=== PATIENT | female | born 1975 | race African-American/Black ===

== ENCOUNTER 2022-12-05 17:27 | Emergency (ER) | payer OTHER, SELFPAY ==
--- NOTE | ~2022-12-05 | XR_ITS ---
EXAMINATION: XR chest 2V DATE: 12/05/2022 18:04 INDICATION: Heart palpitations TECHNIQUE: PA and lateral views of the chest are obtained. COMPARISON: None available FINDINGS: The lungs are free of acute opacities. No pleural effusion or pneumothorax. The cardiomedia stinal silhouette is normal. There is moderate thoracic spondylosis. IMPRESSION: 1. No acute cardiopulmonary abnormality. Reviewed, dictated and finalized at location F. PS CONSULTANT
--- NOTE | 2022-12-05 17:45 | ECG_ITS ---
Measurements Intervals [place] Rate: 104 P: 43 VT: 168 QRS: -30 QRSD: 94 T: -6 QT: 320 QTc: 422 Interpretive Statements SINUS TACHYCARDIA CANNOT RULE OUT SEPTAL INFARCT, AGE INDETERMINATE BORDERLINE T WAVE ABNORMALITY- ANTEROLAT/INF LEADS ABNORMAL ECG NO PREVIOUS ECG AVAILABLE FOR COMPARISON Electronically Signed On 12-05-2022 18:48:19 [employer]ECUTIVE by Noah Lindo D.O.
[2022-12-05 17:46] VITALS: BP 173/85; PULSE 104; RESP 20; TEMP 36.6; O2SAT 98
[2022-12-05 18:11] LABS: Basophils Absolute Auto 0.1 K/mm3 (0.0-0.1); Eosinophils Absolute Auto 0.2 K/mm3 (0-0.3); Eosinophils Percent Auto 2.6 % (0-4.4); Hematocrit 38.2 % (37.0-47.0); Hemoglobin 12.9 g/dL (12.0-15.0); Immature Granulocyte Absolute 0.02 K/mm3 (0.00-0.031); Immature Granulocyte Percent A 0.3 % (0-0.5); Lymphocytes Absolute Auto 2.26 K/mm3 (0.9-3.2); Lymphocytes Percent Auto 36.3 % (18.3-44.2); Mean Corpuscular HGB Conc 33.8 g/dl (32-36); Mean Corpuscular Hemoglobin 29.4 pg (26-34); Mean Platelet Volume 11.1 fl (7.4-10.4); Monocytes Absolute Auto 0.5 K/mm3 (0.1-0.6); Monocytes Percent Auto 8.5 % (2.6-8.5); Neutrophils Absolute Auto 3.2 K/mm3 (1.3-6.7); Neutrophils Percent Auto 51.3 % (45.5-73.1); Platelet Count Result 254 k/mm3 (150-375); Red Blood Count 4.39 M/mm3 (4.2-5.4); Red Cell Distribution Width 14.6 % (11.5-14.5); White Blood Count 6.2 K/mm3 (4.5-10.0)
[2022-12-05 18:20] LABS: Alanine Aminotransferase 11 U/L (6-35); Albumin Level 4.2 g/dL (3.5-5.1); Alkaline Phosphatase 57 U/L (38-126); Anion Gap 6 mmol/L (8-16); Aspartate Amino Transferase 17 U/L (14-36); Bilirubin,Total 0.5 mg/dL (0.2-1.3); Blood Urea Nitrogen 9 mg/dL (7-17); Carbon Dioxide 28 mmol/L (22-30); Chloride 103 mmol/L (98-107); Estimated CRCL calculation 78 ml/min; Estimated Glomerular Filt Rate > 60; Glucose 103 mg/dL (65-110); Lipase 38 U/L (23-300); Potassium 3.6 mmol/L (3.4-5.0); Sodium 137 mmol/L (137-145)
[2022-12-05 18:21] LABS: INR 1.1; Prothrombin Time 13.7 Seconds (11.1-14.7)
[2022-12-05 18:23] LABS: Partial Thromboplastin Time 27.8 SECONDS (22.3-36.8)
[2022-12-05 18:32] LABS: Troponin I < 0.012 ng/mL (0.000-0.034)
[2022-12-05 21:47] VITALS: BP 148/72; PULSE 98; RESP 18; O2SAT 100
--- NOTE | 2022-12-05 21:58 | PC.NURSE ---
patient states she has been waiting too long and left from triage area
== END 2022-12-05 22:21 | disposition left against medical advice (07) ==
PROVIDERS: Emergency Provider Emergency Medicine
DX: R07.9 Chest pain, unspecified (principal)
CPT/HCPCS: 36415; 71046; 80053; 83690; 84484; 85025; 85610; 85730; 93005; 99199

== ENCOUNTER 2023-03-09 20:15 | Emergency (ER) | payer OTHER, SELFPAY ==
[2023-03-09 20:17] VITALS: BP 154/101; PULSE 107; RESP 16; TEMP 36.6; O2SAT 100
--- NOTE | 2023-03-09 21:28 | ECG_ITS ---
Measurements Intervals [place] Rate: 93 P: 12 IN: 167 QRS: -29 QRSD: 99 T: -29 QT: 383 QTc: 477 Interpretive Statements SINUS RHYTHM BORDERLINE LEFT AXIS DEVIATION [QRS AXIS < -20] MINIMAL VOLTAGE CRITERIA FOR LVH, CONSIDER NORMAL VARIANT [MEETS CRITERIA IN ONE OF: R(aVL), S(V1), R(V5), R(V5/V6)+S(V1)] MODERATE T-WAVE ABNORMALITY COMPARED TO ECG 12/05/2022 17:42:38 SINUS RHYTHM NOW PRESENT Electronically Signed On 03-10-2023 12:15:49 CDT by Marques Jarquin M.D.
--- NOTE | 2023-03-09 21:29 | ED.GENADULT ---
HPI - General Adult General Chief complaint: Recheck/Abnormal Lab/Rx Stated complaint: htn, unable to sleep Time Seen by Provider: 03/09/23 20:50 Source: patient Mode of arrival: ambulatory Limitations: no limitations History of Present Illness HPI narrative: This is a 47-year-old female who presents to the ED with chief complaint of anxiety and elevated blood pressures. Patient states that she has been unable to sleep for the past 2 weeks due to her stress. She has been seen by a doctor at [place] and and they have been working on sleep medications for the past few weeks. She states that nothing is working. Patient reports feeling shaky and she was lightheaded earlier. Endorses bilateral upper extremity tingling. Also endorses waves of hotness that is all over my body. Denies any LOC. Denies head injury. Denies any current chest pain or shortness of breath. Review of Systems Review of Systems: CONSTITUTIONAL: Denies fever, chills, or sweats. EYES: Denies visual changes, redness, or discharge. ENT: Denies rhinorrhea, congestion, sore throat, or otalgia. CARDIOVASCULAR: Denies chest pain, palpitations, or edema. RESPIRATORY: Denies cough or dyspnea. GASTROINTESTINAL: Denies abdominal pain, nausea, vomiting, or diarrhea. GENITOURINARY: Denies dysuria or hematuria. SKIN: Denies rash or itching. MUSCULOSKELETAL: Denies back pain, joint pain, or myalgia. NEUROLOGIC: See HPI PSYCHIATRIC: See HPI Exam Narrative: GENERAL: Appears anxious. Otherwise well-appearing. HEAD: Normocephalic, atraumatic. EYES: PERRLA and EOMI. ENT: Nares clear, no rhinorrhea or epistaxis. Mucous membranes moist. Oropharynx without tonsillar hypertrophy exudate or other lesions. NECK: Supple. No adenopathy or masses. CHEST: No respiratory distress. Clear to auscultation. No wheezes rales or rhonchi HEART: Regular rate and rhythm. No murmur heard. Normal peripheral pulses. ABDOMEN: Soft, nontender, nondistended, normal active bowel sounds. MSK: Normal range of motion. No edema. SKIN: Warm, dry, no rash. NEURO: Alert and oriented x3. No focal deficits. PSYCH: Anxious mood. Conversational. Appropriate affect. No SI or HI. Course Vital Signs Vital signs: Vital Signs Temperature 97.9 F 03/09/23 20:17 Pulse Rate 107 H 03/09/23 20:17 Respiratory Rate 16 03/09/23 20:17 Blood Pressure 154/101 H 03/09/23 20:17 Pulse Oximetry 100 03/09/23 20:17 Oxygen Delivery Room Air 03/09/23 20:17 Temperature 98.1 F 03/10/23 00:38 Pulse Rate 83 03/10/23 00:38 Respiratory Rate 12 03/10/23 00:38 Blood Pressure 130/86 03/10/23 00:38 Pulse Oximetry 100 03/10/23 00:38 Oxygen Delivery Room Air 03/09/23 20:17 Medical Decision Making MDM Narrative Medical decision making narrative: This is a 47-year-old female who presents to the ED with chief complaint of anxiety and unable to sleep for the past few weeks. Vitals are stable. Exam is reassuring. Blood work and EKG are within normal limits. Symptoms are certainly consistent with increased anxiety. She was given 1 mg total of Ativan here which seemed to help with her symptoms and she was able to get some sleep. She is stable for discharge. Supportive measures discussed and return precautions were given. Patient is understanding and agreeable with plan for discharge and follow-up with her regular doctor for anxiety. Vital Signs Vital Signs: Vital Signs Temperature 97.9 F 03/09/23 20:17 Pulse Rate 107 H 03/09/23 20:17 Respiratory Rate 16 03/09/23 20:17 Blood Pressure 154/101 H 03/09/23 20:17 Pulse Oximetry 100 03/09/23 20:17 Oxygen Delivery Room Air 03/09/23 20:17 Temperature 98.1 F 03/10/23 00:38 Pulse Rate 83 03/10/23 00:38 Respiratory Rate 12 03/10/23 00:38 Blood Pressure 130/86 03/10/23 00:38 Pulse Oximetry 100 03/10/23 00:38 Oxygen Delivery Room Air 03/09/23 20:17 Lab Data 03/09/23 21:43
[2023-03-09 22:01] LABS: Basophils Absolute Auto 0.1 K/mm3 (0.0-0.1); Basophils Percent Auto 0.5 % (0.2-1.2); Eosinophils Absolute Auto 0.1 K/mm3 (0-0.3); Eosinophils Percent Auto 1.2 % (0-4.4); Hematocrit 37.3 % (37.0-47.0); Hemoglobin 12.7 g/dL (12.0-15.0); Immature Granulocyte Absolute 0.03 K/mm3 (0.00-0.031); Immature Granulocyte Percent A 0.3 % (0-0.5); Lymphocytes Absolute Auto 2.73 K/mm3 (0.9-3.2); Lymphocytes Percent Auto 27.3 % (18.3-44.2); Mean Platelet Volume 11.2 fl (7.4-10.4); Monocytes Absolute Auto 0.8 K/mm3 (0.1-0.6); Monocytes Percent Auto 8.3 % (2.6-8.5); Neutrophils Absolute Auto 6.2 K/mm3 (1.3-6.7); Neutrophils Percent Auto 62.4 % (45.5-73.1); Platelet Count Result 242 k/mm3 (150-375); Red Blood Count 4.24 M/mm3 (4.2-5.4); Red Cell Distribution Width 15.5 % (11.5-14.5)
[2023-03-09 22:14] LABS: Alanine Aminotransferase 16 U/L (6-35); Albumin Level 3.9 g/dL (3.5-5.1); Alkaline Phosphatase 44 U/L (38-126); Anion Gap 6 mmol/L (8-16); Aspartate Amino Transferase 20 U/L (14-36); Bilirubin,Total 0.4 mg/dL (0.2-1.3); Blood Urea Nitrogen 11 mg/dL (7-17); Calcium 8.9 mg/dL (8.4-10.2); Carbon Dioxide 31 mmol/L (22-30); Chloride 100 mmol/L (98-107); Estimated CRCL calculation 81 ml/min; Estimated Glomerular Filt Rate > 60; Glucose 105 mg/dL (65-110); Potassium 3.3 mmol/L (3.4-5.0); Sodium 137 mmol/L (137-145)
[2023-03-09] MEDS: SODIUM CHLORIDE 0.9% IV 1,000 ML 999 ML IV CONT (22:41)
[2023-03-09] MEDS: LORazepam INJ (*CRX) 2 MG/ML VIAL 0.5 MG IV PUSH ×2 (22:43→23:42)
[2023-03-09 23:23] VITALS: PULSE 90; RESP 17; O2SAT 100
[2023-03-10 00:38] VITALS: BP 130/86; PULSE 83; RESP 12; TEMP 36.7; O2SAT 100
== END 2023-03-10 00:39 | disposition home or self-care (01) ==
PROVIDERS: Emergency Provider Physician Assistant; PCP Internal Medicine Infectious Disease
DX: F41.9 Anxiety disorder, unspecified (principal)
CPT/HCPCS: 36415; 80053; 85025; 93005; 96361; 96374; 96375; 99284; J2060; J7030

== ENCOUNTER 2023-03-11 11:51 | Emergency (ER) | payer OTHER, SELFPAY ==
[2023-03-11] VITALS (24 sets, daily range): BP systolic 135–181; BP diastolic 85–111; PULSE 81–105; RESP 11–20; TEMP 36.6; O2SAT 99–100
--- NOTE | 2023-03-11 12:15 | ECG_ITS ---
Measurements Intervals [place] Rate: 102 P: 38 MD: 151 QRS: -46 QRSD: 98 T: -26 QT: 343 QTc: 447 Interpretive Statements SINUS TACHYCARDIA LEFT ANTERIOR FASCICULAR BLOCK [QRS AXIS <= -45, QR IN I, RS IN II] CANNOT EXCLUDE PREVIOUS ANTEROSEPTAL DE COMPARED TO ECG 03/09/2023 23:27:32 SINUS TACHYCARDIA NOW PRESENT NO SIGNIFICANT CHANGE Electronically Signed On 03-11-2023 16:27:18 CDT by Sage Moses M.D.
[2023-03-11 12:30] LABS: Basophils Absolute Auto 0.1 K/mm3 (0.0-0.1); Basophils Percent Auto 0.9 % (0.2-1.2); Eosinophils Absolute Auto 0.1 K/mm3 (0-0.3); Eosinophils Percent Auto 0.9 % (0-4.4); Hematocrit 36.9 % (37.0-47.0); Hemoglobin 12.3 g/dL (12.0-15.0); Immature Granulocyte Absolute 0.01 K/mm3 (0.00-0.031); Immature Granulocyte Percent A 0.1 % (0-0.5); Lymphocytes Absolute Auto 1.59 K/mm3 (0.9-3.2); Lymphocytes Percent Auto 22.9 % (18.3-44.2); Mean Corpuscular HGB Conc 33.3 g/dl (32-36); Mean Corpuscular Hemoglobin 29.9 pg (26-34); Mean Corpuscular Volume 89.8 fl (80-100); Mean Platelet Volume 10.5 fl (7.4-10.4); Monocytes Absolute Auto 0.5 K/mm3 (0.1-0.6); Monocytes Percent Auto 7.1 % (2.6-8.5); Neutrophils Absolute Auto 4.7 K/mm3 (1.3-6.7); Neutrophils Percent Auto 68.1 % (45.5-73.1); Platelet Count Result 224 k/mm3 (150-375); Red Blood Count 4.11 M/mm3 (4.2-5.4); Red Cell Distribution Width 15.9 % (11.5-14.5); White Blood Count 6.9 K/mm3 (4.5-10.0)
[2023-03-11 12:40] LABS: Alanine Aminotransferase 16 U/L (6-35); Albumin Level 3.7 g/dL (3.5-5.1); Alkaline Phosphatase 47 U/L (38-126); Anion Gap 5 mmol/L (8-16); Aspartate Amino Transferase 21 U/L (14-36); Bilirubin,Total 0.4 mg/dL (0.2-1.3); Blood Urea Nitrogen 8 mg/dL (7-17); Calcium 8.5 mg/dL (8.4-10.2); Carbon Dioxide 29 mmol/L (22-30); Chloride 100 mmol/L (98-107); Estimated CRCL calculation 110 ml/min; Estimated Glomerular Filt Rate > 60; Glucose 129 mg/dL (65-110); Potassium 3.3 mmol/L (3.4-5.0); Sodium 134 mmol/L (137-145)
--- NOTE | 2023-03-11 12:59 | ED.GENADULT ---
HPI - General Adult General Chief complaint: Headache Stated complaint: hypertension, STEPHEN, tingling all over, hx anxiety Time Seen by Provider: 03/11/23 12:31 History of Present Illness HPI narrative: Patient is a 47-year-old female who presents ER with multiple complaints. She reports throbbing frontal headache ongoing for couple of days, she is also having elevated blood pressures that are causing her distress. She is currently residing at [facility] where they are managing her mental health medications. She reports insomnia for the last 2 weeks. She was seen here couple days ago for the same complaints and got some sleep after receiving some Ativan. She reports increased stress due to her poor dentition and requiring future removal of all of her teeth. She reports her legs also feel heavy. No lower extremity numbness or tingling. No upper extremity numbness or tingling. Patient tearful. Related Data Allergies Allergy/AdvReac Type Severity Reaction Status Date / Time No Known Allergies Allergy Verified 03/11/23 11:51 Review of Systems Review of Systems: All systems reviewed & are unremarkable except as noted in HPI and below Constitutional: Constitutional: Denies chills, Denies fatigue and Denies fever(s) Comments: Positive insomnia Eyes: Eyes: Denies change in vision and Denies photophobia ENT: Denies nasal congestion and Denies sore throat Cardiovascular: Cardiovascular: Denies chest pain, Denies rapid heart rate and Denies radiating jaw, neck or arm pain Musculoskeletal: Musculoskeletal: Denies back pain, Denies myalgias and Denies arthralgias Neurologic: Denies dizziness, Denies syncope, Reports headache(s) and Denies focal weakness Psychiatric: Psychiatric: Reports anxiety PMFSH Past Medical History Medical History (Updated 03/11/23 @ 14:58 by Nino Johnson MD) Anxiety Depression Hypertension Surgical History Surgical History (Updated 03/11/23 @ 13:02 by Nino Johnson MD) No pertinent past surgical history Exam Narrative: GENERAL: Anxious-appearing, well-nourished, and in no acute distress. HEAD: Normocephalic, atraumatic. EYES: PERRL and EOMI. ENT: Poor dentition with large root exposure of multiple teeth. No abscess. CHEST: Clear to auscultation. No respiratory distress. HEART: Regular rate and rhythm. Normal peripheral pulses. EXTREMITIES: Normal range of motion. No edema. SKIN: Warm, dry, no rash. NEURO: Alert and oriented x3. PSYCH: Anxious and tearful. Course Course Emergency Course: Patient seems improved after Ativan, offered Ativan for her stay chest not and she has declined. Lab work unremarkable. Symptoms felt to be related to her anxiety. Vital Signs Vital signs: Vital Signs Temperature 97.8 F 03/11/23 12:12 Pulse Rate 105 H 03/11/23 12:12 Respiratory Rate 18 03/11/23 12:12 Blood Pressure 178/100 H 03/11/23 12:12 Pulse Oximetry 100 03/11/23 12:12 Oxygen Delivery Room Air 03/11/23 12:12 Temperature 97.8 F 03/11/23 12:12 Pulse Rate 96 03/11/23 14:02 Respiratory Rate 17 03/11/23 14:01 Blood Pressure 163/100 H 03/11/23 14:02 Pulse Oximetry 100 03/11/23 14:01 Oxygen Delivery Room Air 03/11/23 12:12 Medical Decision Making Vital Signs Vital Signs: Vital Signs Temperature 97.8 F 03/11/23 12:12 Pulse Rate 105 H 03/11/23 12:12 Respiratory Rate 18 03/11/23 12:12 Blood Pressure 178/100 H 03/11/23 12:12 Pulse Oximetry 100 03/11/23 12:12 Oxygen Delivery Room Air 03/11/23 12:12 Temperature 97.8 F 03/11/23 12:12 Pulse Rate 96 03/11/23 14:02 Respiratory Rate 17 03/11/23 14:01 Blood Pressure 163/100 H 03/11/23 14:02 Pulse Oximetry 100 03/11/23 14:01 Oxygen Delivery Room Air 03/11/23 12:12 Lab Data 03/11/23 12:23 03/11/23 12:23 Labs: Lab Results 03/11/23 Range/Units 12:23 WBC 6.9 (4.5-10.0) K/mm3 RBC 4.11 L (
[2023-03-11] MEDS: ACETAMINOPHEN 325 MG TABLET 650 MG PO (13:08)
[2023-03-11] MEDS: LORazepam INJ (*CRX) 2 MG/ML VIAL 0.5 MG IV PUSH (13:09)
== END 2023-03-11 15:00 | disposition home or self-care (01) ==
PROVIDERS: Emergency Medicine; Emergency Provider Emergency Medicine; PCP Internal Medicine Infectious Disease
DX: R51.9 Headache, unspecified (principal); F41.9 Anxiety disorder, unspecified; I10 Essential (primary) hypertension; F32.A Depression, unspecified
CPT/HCPCS: 36415; 80053; 85025; 93005; 96374; 99284; A9270; J2060

== ENCOUNTER 2025-01-18 15:02 | Emergency (ER) | payer OTHER, SELFPAY ==
[2025-01-18] VITALS (24 sets, daily range): BP systolic 156–180; BP diastolic 82–108; PULSE 74–91; RESP 13–21; TEMP 36.1–36.8; O2SAT 98–100
--- NOTE | ~2025-01-18 | XR_ITS ---
CHEST RADIOGRAPH, PA AND LATERAL CLINICAL HISTORY: chest pain . COMPARISON: 12/05/2022 TECHNIQUE: PA and lateral views of the chest. FINDINGS The cardiomediastinal silhouette is unremarkable. The lungs are clear. Visualized osseous structures and soft tissues are unremarkable. IMPRESSION: No focal infiltrate or effusion. Reviewed, dictated and finalized at location A.
--- NOTE | 2025-01-18 15:04 | ECG_ITS ---
Test Date: 2025-01-18 15:15:36 Measurements Intervals [place] Rate: 71 P: 54 RI: 161 QRS: -17 QRSD: 97 T: -13 QT: 370 QTc: 405 Interpretive Statements SINUS RHYTHM MINIMAL Q WAVES- HIGH LATERAL LEADS CANNOT R/O SEPTAL INFARCT, AGE INDETERMINATE BORDERLINE ST-T WAVE ABNORMALITY- ANTEROLAT/INF LEADS BASELINE ARTIFACT- I, III, AVR, AVL, AVF ABNORMAL ECG No previous ECG available for comparison Electronically Signed On 01-18-2025 15:21:37 CDT by Noah Lindo D.O.
--- OUTSIDE RECORDS SUMMARY | 2025-01-18 16:50 | XMS_ITS | Data Portability ---
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 She should call her psychiatrist today even though she has an appointment tomorrow about her insomnia. oajao Not available 03/19/2023 16:45:00 Plan of Treatment Reminders Order Date Submit Date Provider Last Modified By Organization Details Last Modified Time Details Appointments ANY 15 2024 08:45A Angelica Fernandes MD Not available Not available Not available Lab lipid panel, serum 2024 025 jnicolrn [facility], [address], [place], [address], 01/13/2025 12:56:31 vitamin B12, serum 2024 025 MYKE [facility], [address], [place], [address], 01/13/2025 03:03:20 HbA1c (hemoglob in A1c), blood 2024 025 jnicolrn [facility], [address] [place], [place] [address], [address], [place], [address], 01/13/2025 12:56:31 lipid panel, serum 2023 024 MYKE LIN, [address], [address], [place], [address], 07/01/2024 08:31:28 vitamin B12, serum 2023 024 MYKENEO [facility], [address], [address], [place], [address], 07/01/2024 08:31:23 HbA1c (hemoglob in A1c), blood 2023 024 MYKE DALYERP, [address], [address], [place], [address], 07/01/2024 08:31:22 vitamin D, 25-hydrox y, total, serum 2023 024 MYKE DALEYRP, [address], [address], [place], [address], 07/01/2024 08:31:24 vitamin B12, serum 2022 023 MYKE LIN, [address], [address], [place], [address], 05/02/2023 10:15:26 HbA1c (hemoglob in A1c), blood 2022 023 MYKE LABLAINERP, [address], [address], [place], [address], 05/02/2023 10:15:25 urinalysi s, dipstick 2022 023 MYKE DALEYRP, [address], [address], [place], [address], 05/02/2023 06:39:57 basic metabolic 1998 panel, serum or plasma 2022 023 [facility], [address] [place] [address], [address], [place], [address], 05/02/2023 06:39:56 vitamin B12, serum 2022 023 [facility], [address] [place] [address], [address], [place], [address], 03/20/2023 13:10:58 TSH, ultra-sen sitive, serum 2022 023 [facility], [address] [place] [address], [address], [place], [address], 03/20/2023 13:10:57 basic metabolic 1998 panel, serum or plasma 2022 023 [facility], [address] [place] [address], [address], [place], [address], 03/20/2023 06:17:06 Referral gastroent erologist referral 2023 024 himanshu Guerrero MD, [address] [place], [address], 07/29/2024 12:24:10 Procedures None recorded. Surgeries None recorded. Imaging MAMMO, screening , digital, bilateral 2023 024 [facility] ([facility]), [address] [place], [address], 08/03/2024 13:29:53 XR, knee - Pain, lateral and posterior part of the right knee 2022 023 [facility] ([facility]), [address] [place], [address], 05/23/2023 17:42:28 MRI, brain, w/o contrast - Severe headache, parasthes ia, negative CT scan 2022 023 [facility] ([facility]), [address] [place], [address], 03/22/2023 13:17:02 Medication Orders atorvasta tin 40 mg tablet 2024 025 [id number], [address] [place], [place], [id number], 12/30/2024 13:14:40 Vitamin D2 1,250 mcg (50,000 unit) capsule 2024 025 [facility] #[id number], [address] [place], [place], [id number], 12/30/2024 13:18:09 amlodipin e 5 mg tablet 2024 025 [facility] #[id number], [address] [place], [place], [id number], 12/30/2024 13:14:38 metoprolo l succinate ER 25 mg tablet,ex tended release 24 hr 2024 025 [facility] #[id number], [address] [place], [place], [id number], 12/30/2024 13:14:32 atorvasta tin 40 mg tablet 2023 024 [facility] #[facility]30, [address] [place], [place], [id number], 06/30/2024 13:04:00 pantopraz ole 40 mg tablet,de layed release 2023 024 [facility] #[id number], [address] [place], [place], [id number], 06/30/2024 13:04:55 amlodipin e 5 mg tablet 2023 024 [facility] #05974, [address] [place], [place], [id number], 06/30/2024 12:56:29 cyanocoba norman (vit B-12) 1,000 mcg/mL injection solution 2022 023 [email or web address] Not available 06/30/2024 12:35:48 amlodipin e 10 mg tablet 2022 023 [facility]205, [address] [place], [place], [id number], 06/30/2024 12:46:58 hydrochlo rothiazid e 25 mg tablet 2022 023 [facility] #67085, [address] [place], [place], [id number], 05/01/2023 13:03:46 Patient TargetsNo targets recorded. Patient Instructions Encounter Date Encounter Id Patient Instructions Last Modified By Organization Details Last Modified Time 03/19/2023 [id number] MRI brain Labs Psychiatrist GODFREY ER if her symptoms worsen. oajao Not available 03/19/2023 15:10:40 Detailed visit oajao Not available 0 03/19/2023 16:47:11 05/01/2023 [id number] prediabetes: car e instructions oajao Not available 05/01/2023 13:07:31 Labs Xray MMG as previously ordered Discharge summary from her recent admission to [facility] Follow up in 2 weeks oajao Not available 05/01/2023 13:15:24 Detailed visit oajao Not available 0 05/01/2023 14:05:42 06/30/2024 [id number] mammogram: about this test oajao Not available 06/30/2024 12:57:49 high cholesterol : care instructions oajao Not available 06/30/2024 13:03:49 gastroesophageal reflux disease (GERD): care instructions oajao Not available 06/30/2024 13:04:49 Labs MMG Cardiol ogy GI Follow up in 6 months and PRN oajao Not available 06/30/2024 13:06:58 12/30/2024 [id number] body mass index: care instructions oajao Not available 12/30/2024 13:00:11 learning about healthy weight oajao Not available 12/30/2024 13:00:11 Restart Atorvast atin Take Amlodipine and Metoprolol as prescribed Labs in 2 weeks Follow up in 3-4 weeks oajao Not available 12/30/2024 13:18:38 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 Referral for Gastroesophageal reflux disease Chronic abdominal bloating Referring Physician: Mohsen Fernandes, Internal Medicine, Encounter Date: 06/30/2024 Results Created Date Observation Date Name Description Value Unit Range Abnormal Flag Note LastModifiedBy Organization Detail LastModifiedTime 03/03/2003/03/2023 Vickie ol [Mass /volu me] in Serum or Plasm a ethanol [mass/volume ] in serum or plasma high: 10mg/d L Vickie ol (mg/d L) <10 <10 mg/dL 03/03 9:48 AM CDT [facility] Not Available Not Available 12/30/2024 03:23:02 03/03/2003/03/2023 Vickie ol [Mass /volu me] in Serum or Plasm a ethanol [mass/volume ] in blood high: 0.01g/ dL Vickie ol Calcu lated (g/dL ) <0.01 0 <=0.0 10 g/dL 03/03 9:48 AM CDT [facility] Not Available Not Available 12/30/2024 03:23:02 03/03/2003/03/2023 Vickie ol [Mass /volu me] in Serum or Plasm a Unknown Analyte ETHANO L INTERP <10: NONE DETECT ED. DEPRES SHAMIKA OF GUIDE DOG TRAINER: >100 MG/DL POTENT IALLY CRITIC AL: >250 MG/DL POTENT IALLY FATAL >400 MG/DL ETHANO L IN THE PATIEN T'S BLOOD WILL CONTRI BUTE TO THE OSMOLA R GAP. ETHANO L'S CONTRI BUTION TO THE OSMOLA R GAP CAN BE ESTIMA JENNIFER BY DIVIDI NG THE CONCEN TRATIO N OF ETHANO L IN MG/DL BY 4.6. THIS TEST IS FOR CLINIC AL USE ONLY AND DOES NOT EQUAL A BRIDGER FOR LEGAL PURPOS ES. Vickie ol Inter p <10: None Detec jennifer. Depre ssion of GUIDE DOG TRAINER: >100 mg/dl Poten tiall y Criti olya: >250 mg/dl Poten tiall y Fatal >400 mg/dl Vickie ol in the patie nt's blood will contr ibute to the osmol ar gap. Vickie ol's contr ibuti on to the osmol ar gap can be estim ated by divid ing the laurie ntrat ion of vickie ol in mg/dL by 4.6. This test is for clini olya use only and does not equal a BRIDGER for legal purpo ses. Not Available Not Available 12/30/2024 03:23:02 03/03/2003/03/2023 Vickie ol [Mass /volu me] in Serum or Plasm a interpretati on and review of laboratory results NORMAL Not Available Not Available 12/06 03:23:02 03/03/2003/03/2023 CBC W Auto Diffe renti al panel - Blood leukocytes [#/volume] in blood by automated count 8.3 text: 3.5 - 10.5 10 3/uL WBC 8.3 3.5 - 10.5 10 3/uL 03/03 8:[address] [facility] Not Available Not Available 12/30/2024 03:23:02 03/03/2003/03/2023 CBC W Auto Diffe renti al panel - Blood erythrocytes [#/volume] in blood by automated count 4.46 text: 3.80 - 5.20 10 6/uL RBC 4.46 3.80 - 5.20 10 6/uL 03/03 8:[address] [facility] Not Available Not Available 12/30/2024 03:23:02 03/03/2003/03/2023 CBC W Auto Diffe renti al panel - Blood hemoglobin [mass/volume ] in blood 13.2 g/dL low: 12g/dL high: 15.6g/ dL Hemog lobin 13.2 12.0 - 15.6 g/dL 03/03 8:10 AM [facility] Not Available Not Available 12/30/2024 03:23:02 03/03/2003/03/2023 CBC W Auto Diffe renti al panel - Blood hematocrit [volume fraction] of blood by automated count 38.1 % low: 35%hig h: 45% Hemat ocrit 38.1 35.0 - 45.0 % 03/03 8:10 AM [facility] Not [facility] Not Available 12/30/2024 03:23:02 03/03/2003/03/2023 CBC W Auto Diffe renti al panel - Blood MCV [entitic volume] by automated count 85.4 fL low: 80.7fL high: 98.3fL MCV 85.4 80.7 - 98.3 fL 03/03 8:10 AM [facility] Not Available Not Available 12/30/2024 03:23:02 03/03/2003/03/2023 CBC W Auto Diffe renti al panel - Blood MCH [entitic mass] by automated count 29.6 pg low: 26.7pg high: 34pg MCH 29.6 26.7 - 34.0 pg 03/03 8:10 AM T [facility] Not Available Not Available 12/30/2024 03:23:02 03/03/2003/03/2023 CBC W Auto Diffe renti al panel - Blood MCHC [mass/volume ] by automated count 34.6 g/dL low: 30.8g/ dLhigh : 35.9g/ dL MCHC 34.6 30.8 - 35.9 g/dL 03/03 8:10 AM [facility] Not Available Not Available 12/30/2024 03:23:02 03/03/2003/03/2023 CBC W Auto Diffe renti al panel - Blood erythrocyte distribution width [entitic volume] by automated count 46.9 fL low: 36fLhi gh: 50fL RDW-S D 46.9 36.0 - 50.0 fL 03/03 8:[address] [facility] Not Available Not Available 12/30/2024 03:23:02 03/03/2003/03/2023 CBC W Auto Diffe renti al panel - Blood erythrocyte distribution width [ratio] by automated count 15.1 % low: 11.2%h igh: 14.8% high RDW-C V 15.1 (H) 11.2 - 14.8 % 03/03 8:[address] [facility] Not Available Not Available 12/30/2024 03:23:02 03/03/2003/03/2023 CBC W Auto Diffe renti al panel - Blood platelets [#/volume] in blood by automated count 259 text: 150 - 400 10 3/uL Plate let Count 259 150 - 400 10 3/uL 03/03 8:10 AM CDT [facility] Not Available Not Available 12/30/2024 03:23:02 03/03/2003/03/2023 CBC W Auto Diffe renti al panel - Blood platelet mean volume [entitic volume] in blood by automated count 10.5 fL low: 9.4fLh igh: 12.9fL MPV 10.5 9.4 - 12.9 fL 03/03 8:10 AM CDT [facility] Not Available Not Available 12/30/2024 03:23:02 03/03/2003/03/2023 CBC W Auto Diffe renti al panel - Blood nucleated erythrocytes [#/volume] in blood by automated count 0 text: 0 10 3/uL nRBC [place] 0.00 0 10 3/uL 03/03 8:[address] [facility] Not Available Not Available 12/30/2024 03:23:02 03/03/2003/03/2023 CBC W Auto Diffe renti al panel - Blood nucleated erythrocytes /100 leukocytes [ratio] in blood by automated count 0 text: 0 /100 WBC nRBC Auto 0.0 0 /100 WBC 03/03 8:[address] [facility] Not Available Not Available 12/30/2024 03:23:02 03/03/20 23 03/03/2023 CBC W Auto Diffe renti al panel - Blood neutrophils/ 100 leukocytes in blood by automated count 61.1 % low: 35%hig h: 70% Neutr ophil s % 61.1 35.0 - 70.0 % 03/03 8:[address] [facility] Not Available Not Available 12/30/2024 03:23:02 03/03/20 23 03/03/2023 CBC W Auto Diffe renti al panel - Blood lymphocytes/ 100 leukocytes in blood by automated count 28.2 % low: 20%hig h: 43% Lymph ocyte s % 28.2 20.0 - 43.0 % 03/03 8:[address] [facility] Not Available Not Available 12/30/2024 03:23:02 03/03/20 23 03/03/2023 CBC W Auto Diffe renti al panel - Blood monocytes/10 0 leukocytes in blood by automated count 7.7 % low: 5%high : 13% Monoc ytes % 7.7 5.0 - 13.0 % 03/03 8:[address] [facility] Not Available Not Available 12/30/2024 03:23:02 03/03/20 23 03/03/2023 CBC W Auto Diffe renti al panel - Blood eosinophils/ 100 leukocytes in blood by automated count 1.6 % low: 0%high : 6% Eosin ophil s % 1.6 0.0 - 6.0 % 03/03 8:[address] [facility] Not Available Not Available 12/30/2024 03:23:02 03/03/20 23 03/03/2023 CBC W Auto Diffe renti al panel - Blood basophils/10 0 leukocytes in blood by automated count 1 % low: 0%high : 2% Basop hil % 1.0 0.0 - 2.0 % 03/03 8:[address] [facility] Not Available Not Available 12/30/2024 03:23:02 03/03/20 23 03/03/2023 CBC W Auto Diffe renti al panel - Blood neutrophils [#/volume] in blood by automated count 5.09 text: 1.60 - 7.00 10 3/uL Neutr ophil s [place]ol [place] 5.09 1.60 - 7.00 10 3/uL 03/03 8:[address] [facility] Not Available Not Available 12/30/2024 03:23:02 03/03/20 23 03/03/2023 CBC W Auto Diffe renti al panel - Blood lymphocytes [#/volume] in blood by automated count 2.35 text: 1.10 - 3.90 10 3/uL Lymph ocyte [place]ol [place] 2.35 1.10 - 3.90 10 3/uL 03/03 8:[address] [facility] Not Available Not Available 12/30/2024 03:23:02 03/03/20 23 03/03/2023 CBC W Auto Diffe renti al panel - Blood monocytes [#/volume] in blood by automated count 0.64 text: 0.26 - 1.07 10 3/uL Monoc ytes [place]ol [place] 0.64 0.26 - 1.07 10 3/uL 03/03 8:[address] [facility] Not Available Not Available 12/30/2024 03:23:02 03/03/20 23 03/03/2023 CBC W Auto Diffe renti al panel - Blood eosinophils [#/volume] in blood by automated count 0.13 text: 0.00 - 0.47 10 3/uL Eosin ophil s [place] 0.13 0.00 - 0.47 10 3/uL 03/03 8:[address] [facility] Not Available Not Available 12/30/2024 03:23:02 03/03/2003/03/2023 CBC W Auto Diffe renti al panel - Blood basophils [#/volume] in blood by automated count 0.08 text: 0.00 - 0.08 10 3/uL Basop hils [place] 0.08 0.00 - 0.08 10 3/uL 03/03 8:10 AM CDT [facility] Not Available Not Available 12/30/2024 03:23:02 03/03/20 23 03/03/2023 CBC W Auto Diffe renti al panel - Blood immature granulocytes /100 leukocytes in blood by automated count 0.4 % low: 0%high : 1% Immat ure Granu locyt es % 0.4 0.0 - 1.0 % 03/03 8:10 AM CDT [facility] Not Available Not Available 12/30/2024 03:23:02 03/03/20 23 03/03/2023 CBC W Auto Diffe renti al panel - Blood immature granulocytes absolute 0.03 Immat ure Granu locyt es [place] 0.03 03/03 8:10 AM CDT [facility] Not Available Not Available 12/30/2024 03:23:02 03/03/20 23 03/03/2023 CBC W Auto Diffe renti al panel - Blood interpretati on and review of laboratory results ABNORM AL Not Available Not Available 03:23:02 03/03/20 23 03/03/2023 Compr ehens nadeem metab olic 1999 panel - Serum or Plasm a urea nitrogen [mass/volume ] in serum or plasma 9 mg/dL low: 7mg/dL high: 26mg/d L BUN 9 7 - 26 mg/dL 03/03 8:59 AM [facility] Not Available Not Available 12/30/2024 03:21:25 03/03/20 23 03/03/2023 Compr ehens nadeem metab olic 1999 panel - Serum or Plasm a creatinine [mass/volume ] in serum or plasma 0.78 mg/dL low: 0.56mg /dLhig h: 0.96mg /dL Creat inine 0.78 0.56 - 0.96 mg/dL 03/03 8:59 AM T [facility] Not Available Not Available 12/30/2024 03:21:25 03/03/20 23 03/03/2023 Compr ehens nadeem metab olic 1999 panel - Serum or Plasm a sodium [moles/volum e] in serum or plasma 138 mmol/ L low: 136mmo l/Lhig h: 145mmo l/L Sodiu m 138 136 - 145 mmol/ L 03/03 8:[address] [facility] Not Available Not Available 12/30/2024 03:21:25 03/03/20 23 03/03/2023 Compr ehens nadeem metab olic 1999 panel - Serum or Plasm a potassium [moles/volum e] in serum or plasma 3.5 mmol/ L low: 3.5mmo l/Lhig h: 4.5mmo l/L Potas sium 3.5 3.5 - 4.5 mmol/ L 03/03 8:[address] [facility] Not Available Not Available 12/30/2024 03:21:25 03/03/20 23 03/03/2023 Compr ehens nadeem metab olic 1999 panel - Serum or Plasm a chloride [moles/volum e] in serum or plasma 102 mmol/ L low: 98mmol /Lhigh : 107mmo l/L Chlor yolande 102 98 - 107 mmol/ L 03/03 8:[address] [facility] Not Available Not Available 12/30/2024 03:21:25 03/03/20 23 03/03/2023 Compr ehens nadeem metab olic 1999 panel - Serum or Plasm a carbon dioxide, total [moles/volum e] in serum or plasma 26 mmol/ L low: 22mmol /Lhigh : 29mmol /L CO2 26 22 - 29 mmol/ L 03/03 8:[address] [facility] Not Available Not Available 12/30/2024 03:21:25 03/03/20 23 03/03/2023 Compr ehens nadeem metab olic 1999 panel - Serum or Plasm a glucose [mass/volume ] in serum or plasma 108 mg/dL low: 70mg/d Lhigh: 115mg/ dL Gluco se 108 70 - 115 mg/dL 03/03 8:[address] [facility] Not Available Not Available 12/30/2024 03:21:25 03/03/20 23 03/03/2023 Compr ehens nadeem metab olic 1999 panel - Serum or Plasm a calcium [moles/volum e] in serum or plasma 9.7 mg/dL low: 8.4mg/ dLhigh : 10.2mg /dL Calci um 9.7 8.4 - 10.2 mg/dL 03/03 8:[address] [facility] Not Available Not Available 12/30/2024 03:21:25 03/03/20 23 03/03/2023 [facility] nadeem metab [facility] 1999 panel - Serum or Plasm a protein [mass/volume ] in serum or plasma 6.7 g/dL low: 6g/dLh igh: 8.3g/d L Prote in Total 6.7 6.0 - 8.3 g/dL 03/03 8:[address] [facility] Not Available Not Available 12/30/2024 03:21:25 03/03/20 23 03/03/2023 [facility] nadeem [facility] 1999 panel - Serum or Plasm a albumin [mass/volume ] in serum or plasma by bromocresol green (bcg) dye binding method 3.8 g/dL low: 3.4g/d Lhigh: 5g/dL Album in 3.8 3.4 - 5.0 g/dL 03/03 8:[address] [facility] Not Available Not Available 12/30/2024 03:21:25 03/03/20 23 03/03/2023 [facility] nadeem [facility] 1999 panel - Serum or Plasm a bilirubin.to capri [mass/volume ] in serum or plasma 0.3 mg/dL low: 0.2mg/ dLhigh : 1.2mg/ dL Bilir ubin Total 0.3 0.2 - 1.2 mg/dL 03/03 8:[address] [facility] Not Available Not Available 12/30/2024 03:21:25 03/03/20 23 03/03/[address] [facility] nadeem metab olic 2000 panel - Serum or Plasm a alkaline phosphatase [enzymatic activity/vol ume] in serum or plasma 50 U/L low: 40U/Lh igh: 150U/L Alkal ine Phosp hatas e 50 40 - 150 U/L 03/03 8:[address] [facility] Not Available Not Available 12/30/2024 03:21:25 03/03/20 23 03/03/2023 Compr ehens nadeem metab olic 1999 panel - Serum or Plasm a alanine aminotransfe rase [enzymatic activity/vol ume] in serum or plasma by no addition of P-5'-P 7 U/L low: 5U/Lhi gh: 55U/L ALT 7 5 - 55 U/L 03/03 8:[address] [facility] Not Available Not Available 12/30/2024 03:21:25 03/03/20 23 03/03/2023 Compr ehens nadeem metab olic 1999 panel - Serum or Plasm a aspartate aminotransfe rase [enzymatic activity/vol ume] in serum or plasma 12 U/L low: 5U/Lhi gh: 34U/L AST 12 5 - 34 U/L 03/03 8:[address] [facility] Not Available Not Available 12/30/2024 03:21:25 03/03/20 23 03/03/2023 Compr ehens nadeem metab olic 1999 panel - Serum or Plasm a anion gap 14 low: 8high: 18 Anion Gap 14 8 - 18 03/03 8:[address] [facility] Not Available Not Available 12/30/2024 03:21:25 03/03/20 23 03/03/2023 Compr ehens nadeem metab olic 1999 panel - Serum or Plasm a urea nitrogen/cre atinine [mass ratio] in serum or plasma 12 low: 7high: 23 BUN/C reati nine Ratio 12 7 - 23 03/03 8:[address] [facility] Not Available Not Available 12/30/2024 03:21:25 03/03/20 23 03/03/2023 Compr ehens nadeem metab olic 1999 panel - Serum or Plasm a osmolality calculated 285 text: 270 - 300 mOsm/k g Osmol ality Calcu lated 285 270 - 300 mOsm/ kg 03/03 8:59 AM CDT [facility] Not Available Not Available 12/30/2024 03:21:25 03/03/20 23 03/03/2023 Compr ehens nadeem metab olic 2000 panel - Serum or Plasm a albumin/glob ulin ratio 1.3 low: 1.1hig h: 2.3 Album in/Gl obuli n Ratio 1.3 1.1 - 2.3 03/03 8:59 AM CDT [facility] Not Available Not Available 12/30/2024 03:21:25 03/03/20 23 03/03/2023 Compr ehens nadeem metab olic 2000 panel - Serum or Plasm a glomerular filtration rate/1.73 sq M.predicted [volume rate/area] in serum, plasma or blood by creatinine-b ased formula (CKD-epi) text: >=90 mL/min /1.73 m2 eGFR by CKD-E PI >90 >=90 mL/mi n/1.7 3 m2 03/03 8:59 AM T [facility] Not Available Not Available 12/30/2024 03:21:25 03/03/20 23 03/03/2023 Compr ehens nadeem metab olic 2000 panel - Serum or Plasm a interpretati on and review of laboratory results NORMAL Not Available Not Available 12/06 03:21:25 03/19/20 23 03/19/2023 BASIC METAB OLIC PANEL (7) glucose 103 mg/dL 65-99 above high normal Not Available [facility] [address] [place], [address], 03/20/2023 06:17:06 03/19/20 23 03/19/2023 BASIC METAB OLIC PANEL (7) BUN 8 mg/dL 8-26 Not Available [facility] [address] [place], [address], 03/20/2023 06:17:06 03/19/20 23 03/19/2023 BASIC METAB OLIC PANEL (7) creatinine 0.61 mg/dL 0.50-1 .40 Not Available [facility] [address] [place], [address], 03/20/2023 06:17:06 03/19/20 23 03/19/2023 BASIC METAB OLIC PANEL (7) eGFR 110 mL/mi n/1.7 3 >=60 Not Available [facility] [address] [place], [address], 03/20/2023 06:17:06 03/19/20 23 03/19/2023 BASIC METAB OLIC PANEL (7) BUN/creatini ne ratio 13.3 Not Available [facility] [address] [place], [address], 03/20/2023 06:17:06 03/19/20 23 03/19/2023 BASIC METAB OLIC PANEL (7) sodium 138.0 mmol/ L 136.0- 144.0 Not Available [facility] [address] [place], [address], 03/20/2023 06:17:06 03/19/20 23 03/19/2023 BASIC METAB OLIC PANEL (7) potassium 4.0 mmol/ L 3.5-5. 3 Not Available [facility] [address] [place], [address], 03/20/2023 06:17:06 03/19/20 23 03/19/2023 BASIC METAB OLIC PANEL (7) chloride 99 mmol/ l 101-11 1 below low normal Not Available [facility] [address] [place], [address], 03/20/2023 06:17:06 03/19/20 23 03/19/2023 BASIC METAB OLIC PANEL (7) carbon dioxide, total 23.0 mmol/ L 21.0-3 2.0 Not Available [facility] [address] [place] [address], [id number], 03/20/2023 06:17:06 03/19/20 23 03/20/2023 TSH RFX ON ABNOR MAL TO FREE T4 TSH 0.910 uIU/m L 0.450- 4.500 Not Available [facility] ([facility]) [address] [facility], [place], [address], 03/20/2023 13:10:57 03/19/20 23 03/20/2023 VITAM IN B12 vitamin B12 195 pg/mL 232-12 45 below low normal Not Available [facility] ([facility]) [address] [facility], [place], [address], 03/20/2023 13:10:58 05/01/20 23 05/01/2023 BASIC METAB OLIC PANEL (7) glucose 86 mg/dL 65-99 Not Available [facility] [address] [place] [address], [address], 05/02/2023 06:39:55 05/01/20 23 05/01/2023 BASIC METAB OLIC PANEL (7) BUN 11 mg/dL 8-26 Not Available [facility] [address] [place] [address], [address], 05/02/2023 06:39:55 05/01/20 23 05/01/2023 BASIC METAB OLIC PANEL (7) creatinine 0.74 mg/dL 0.50-1 .40 Not Available [facility] [address] [place], [address], 05/02/2023 06:39:55 05/01/20 23 05/01/2023 BASIC METAB OLIC PANEL (7) eGFR 99 mL/mi n/1.7 3 >=60 Not Available [facility] [address] [place], [address], 05/02/2023 06:39:55 05/01/20 23 05/01/2023 BASIC METAB OLIC PANEL (7) BUN/creatini ne ratio 15.0 Not Available [facility] [address] [place] [address], [address], 05/02/2023 06:39:55 05/01/20 23 05/01/2023 BASIC METAB OLIC PANEL (7) sodium 139.0 mmol/ L 136.0- 144.0 Not Available [facility] [address] [place], [address], 05/02/2023 06:39:55 05/01/20 23 05/01/2023 BASIC METAB OLIC PANEL (7) potassium 4.1 mmol/ L 3.5-5. 3 Not Available [facility] [address] [place], [address], 05/02/2023 06:39:55 05/01/20 23 05/01/2023 BASIC METAB OLIC PANEL (7) chloride 105 mmol/ L 101-11 1 Not Available [facility] [address] [place], [address], 05/02/2023 06:39:55 05/01/20 23 05/01/2023 BASIC METAB OLIC PANEL (7) carbon dioxide, total 24.9 mmol/ L 21.0-3 2.0 Not Available [facility] [address] [place], [address], 05/02/2023 06:39:55 05/01/20 23 05/02/2023 HEMOG LOBIN A1C hemoglobin A1C 5.5 % 4.8-5. 6 Predi abete s: 5.7 - 6.4 Diabe chadd: >6.4 Glyce marin contr ol for adult s with diabe chadd: <7.0 Not Available [facility] ([facility]) [address] [facility], [place], [address], 05/02/2023 10:15:25 05/01/20 23 05/02/2023 VITAM IN B12 vitamin B12 177 pg/mL 232-12 45 below low normal Not Available [facility] ([facility]) [address] [facility], [place], [address], 05/02/2023 10:15:26 05/01/20 23 05/01/2023 URINA LYSIS , ROUTI NE specific gravity 1.025 1.001- 1.035 Not Available [facility] [address] [place], [address], 05/02/2023 06:39:57 05/01/20 23 05/01/2023 URINA LYSIS , ROUTI NE pH 6.0 5.0-7. 0 Not Available [facility] [address] [place], [address], 05/02/2023 06:39:57 05/01/20 23 05/01/2023 URINA LYSIS , ROUTI NE urine-color YELLOW yellow Not Available [facility] [address] [place], [address], 05/02/2023 06:39:57 05/01/20 23 05/01/2023 URINA LYSIS , ROUTI NE appearance CLEAR Not Available [facility] [address] [place], [address], 05/02/2023 06:39:57 05/01/20 23 05/01/2023 URINA LYSIS , ROUTI NE WBC esterase Commen t NEGAT NADEEM Not Available [facility] [address] [place], [address], 05/02/2023 06:39:57 05/01/20 23 05/01/2023 URINA LYSIS , ROUTI NE protein Commen t NEGAT NADEEM Not Available [facility] [address] [place], [address], 05/02/2023 06:39:57 05/01/20 23 05/01/2023 URINA LYSIS , ROUTI NE glucose Commen t NEGAT NADEEM Not Available [facility] [address] [place], [address], 05/02/2023 06:39:57 05/01/20 23 05/01/2023 URINA LYSIS , ROUTI NE ketones Commen t NEGAT NADEEM Not Available [facility] [address] [place], [address], 05/02/2023 06:39:57 05/01/20 23 05/01/2023 URINA LYSIS , ROUTI NE occult blood See below: yusef/u L negati ve abnormal MODER ATE Not Available [facility] [address] [place], [address], 05/02/2023 06:39:57 05/01/20 23 05/01/2023 URINA LYSIS , ROUTI NE bilirubin Commen t negati ve NEGAT NADEEM Not Available [facility] [address] [place], [address], 05/02/2023 06:39:57 05/01/20 23 05/01/2023 URINA LYSIS , ROUTI NE urobilinogen ,semi-qn 0.2 eu/dL <=1.0 Not Available [facility] [address] [facility], [place], [address], 05/02/2023 06:39:57 05/01/20 23 05/01/2023 URINA LYSIS , ROUTI NE nitrite, urine Commen t negati ve NEGAT NADEEM Not Available [facility] [address] [place], [address], 05/02/2023 06:39:57 05/01/20 23 05/01/2023 MICRO SCOPI C EXAMI NATIO N WBC 0-2 Not Available [facility] [address] [place], [address], 05/02/2023 06:39:56 05/01/20 23 05/01/2023 MICRO SCOPI C EXAMI NATIO N RBC 0-2 Not Available [facility] [address] [place], [address], 05/02/2023 06:39:56 05/01/20 23 05/01/2023 MICRO SCOPI C EXAMI NATIO N epithelial cells (non renal) 1+ Not Available [facility] [address] [place], [address], 05/02/2023 06:39:56 05/01/20 23 05/01/2023 MICRO SCOPI C EXAMI NATIO N mucus threads TRACE Not Available [facility] [address] [place], [address], 05/02/2023 06:39:56 05/01/20 23 05/01/2023 MICRO SCOPI C EXAMI NATIO N bacteria Commen t NONE SEEN Not Available [facility] [address] [place], [address], 05/02/2023 06:39:56 06/30/20 24 07/01/2024 HEMOG LOBIN A1C hemoglobin A1C 6.0 % 4.8-5. 6 above high normal Predi abete s: 5.7 - 6.4 Diabe chadd: >6.4 Glyce marin contr ol for adult s with diabe chadd: <7.0 Not Available [facility] ([facility]) [address] [place], [address], 07/01/2024 08:31:22 06/30/20 24 07/01/2024 VITAM IN B12 vitamin B12 216 pg/mL 232-12 45 below low normal Not Available [facility] ([facility]) [address] [place], [address], 07/01/2024 08:31:23 06/30/20 24 07/01/2024 VITAM IN D, 25-HY DROXY vitamin D, 25-hydroxy 17.2 NG/mL 30.0-1 00.0 below low normal Vitam in D defic iency has been defin ed by the Insti tute of Medic ine and an Endoc rine Socie ty pract ice guide line as a level of serum 25-OH vitam in D less than 20 ng/mL (1,2) . The Endoc rine Socie ty went on to furth er defin e vitam in D insuf ficie ncy as a level betwe en 21 and 29 ng/mL (2). 1. IOM (Inst itute of Medic ine). 2010. Dieta ry refer ence intak es for calci um and D. Michael barr [place]: The [facility] . 2. Sanjeev owens MF, Trang roach [place], Navin off-F laura i STEPHEN, et al. Evalu ation , treat ment, and preve ntion of vitam in D defic iency : an Endoc rine Socie ty clini olya pract ice guide line. JCEM. 2010; 96(7) :1911 -30. Not Available [facility] ([facility]) [address] [place], [address], 07/01/2024 08:31:24 06/30/2007/01/2024 LIPID PANEL cholesterol, total 132 mg/dL 100-19 9 Not Available [facility] ([facility]) [address] [place], [address], 07/01/2024 08:31:28 06/30/20 24 07/01/2024 LIPID PANEL triglyceride s 41 mg/dL 0-149 Not Available [facility] ([facility]) [address] [place], [address], 07/01/2024 08:31:28 06/30/20 24 07/01/2024 LIPID PANEL HDL cholesterol 49 mg/dL >39 Not Available [facility] ([facility]) [address] [place], [address], 07/01/2024 08:31:28 06/30/2007/01/2024 LIPID PANEL VLDL cholesterol olya 10 mg/dL 5-40 Not Available [facility] ([facility]) [address] [place], [address], 07/01/2024 08:31:06/30/20 24 07/01/2024 LIPID PANEL LDL chol calc ([facility]) 73 mg/dL 0-99 Not Available [facility] ([facility]) [address] [facility], [place], [address], 07/01/2024 08:31:28 01/03/20 25 01/02/2025 Tropo navid I.car diac [Mass /volu me] in Serum or Plasm a by Detec tion limit <= 0.01 ng/mL troponin I.cardiac [mass/volume ] in serum or plasma by detection limit <= 0.01 NG/mL <0.012 low: 0NG/mL high: 0.034N G/mL normal Not Available Not Available 01/03/2025 11:15:29 01/03/20 25 01/02/2025 Tropo navid I.car diac [Mass /volu me] in Serum or Plasm a by Detec tion limit <= 0.01 ng/mL troponin I.cardiac [mass/volume ] in serum or plasma by detection limit <= 0.01 NG/mL <0.012 low: 0NG/mL high: 0.034N G/mL normal Not Available Not Available 01/03/2025 11:15:29 01/03/20 25 01/02/2025 Tropo navid I.car diac [Mass /volu me] in Serum or Plasm a by Detec tion limit <= 0.01 ng/mL troponin I.cardiac [mass/volume ] in serum or plasma by detection limit <= 0.01 NG/mL <0.012 low: 0NG/mL high: 0.034N G/mL normal Not Available Not Available 01/03/2025 11:15:29 01/03/20 25 01/02/2025 Magne sium [Mass /volu me] in Serum or Plasm a magnesium [mass/volume ] in serum or plasma 1.9 mg/dL low: 1.6mg/ dLhigh : 2.3mg/ dL normal Not Available Not Available 01/03/2025 11:15:29 01/03/20 25 01/02/2025 Compr ehens nadeem metab olic 2000 panel - Serum or Plasm a sodium [moles/volum e] in blood 138 mmol/ L low: 137mmo l/Lhig h: 145mmo l/L normal Not Available Not Available 01/03/2025 11:15:29 01/03/20 25 01/02/2025 Compr [facility] nadeem metab olic 1999 panel - Serum or Plasm a potassium [moles/volum e] in serum or plasma 3.4 mmol/ L low: 3.5mmo l/Lhig h: 5.1mmo l/L low Not Available Not Available 01/03/2025 11:15:29 01/03/20 25 01/02/2025 Compr ehens nadeem metab olic 1999 panel - Serum or Plasm a chloride [moles/volum e] in serum or plasma 108 mmol/ L low: 98mmol /Lhigh : 107mmo l/L high Not Available Not Available 01/03/2025 11:15:29 01/03/20 25 01/02/2025 Compr ehens nadeem metab olic 1999 panel - Serum or Plasm a carbon dioxide, total [moles/volum e] in serum or plasma 27 mmol/ L low: 22mmol /Lhigh : 30mmol /L normal Not Available Not Available 01/03/2025 11:15:29 01/03/20 25 01/02/2025 Compr [facility] n[facility]em [place] olic 1999 panel - Serum or Plasm a anion gap in serum or plasma by calculation 6.4 mmol/ L low: 14mmol /Lhigh : 22mmol /L low Not Available Not Available 01/03/2025 11:15:29 01/03/20 25 01/02/2025 Compr [facility] nadeem metab olic 1999 panel - Serum or Plasm a glucose [mass/volume ] in serum or plasma 117 mg/dL low: 70mg/d Lhigh: 99mg/d L high Not Available Not Available 01/03/2025 11:15:29 01/03/20 25 01/02/2025 Compr [facility] nadeem [place] [facility] 1999 panel - Serum or Plasm a urea nitrogen [mass or moles/volume ] in serum or plasma 10 mg/dL low: 8mg/dL high: 19mg/d L normal Not Available Not Available 01/03/2025 11:15:29 01/03/20 25 01/02/2025 Compr [employer] nadeem metab olic 2000 panel - Serum or Plasm a creatinine [mass/volume ] in serum or plasma 0.78 mg/dL low: 0.66mg /dLhig h: 1.25mg /dL normal Not Available Not Available 01/03/2025 11:15:29 01/03/20 25 01/02/2025 [facility] 1999 panel - Serum or Plasm a glomerular filtration rate [volume rate/area] in serum, plasma or blood by based on 1.73 sq M >60 normal Not Available Not Available 11:15:29 01/03/20 25 01/02/2025 [facility] 1999 panel - Serum or Plasm a alkaline phosphatase [enzymatic activity/vol ume] in serum or plasma 53 U/L low: 38U/Lh igh: 126U/L normal Not Available Not Available 01/03/2025 11:15:29 01/03/20 25 01/02/2025 [facility] 1999 panel - Serum or Plasm a alanine aminotransfe rase [enzymatic activity/vol ume] in serum or plasma 16 U/L low: 0U/Lhi gh: 35U/L normal Not Available Not Available 01/03/2025 11:15:29 01/03/20 25 01/02/2025 [facility] 1999 panel - Serum or Plasm a aspartate aminotransfe rase [enzymatic activity/vol ume] in serum or plasma 22 U/L low: 15U/Lh igh: 37U/L normal Not Available Not Available 01/03/2025 11:15:29 01/03/20 25 01/02/2025 [facility] 1999 panel - Serum or Plasm a bilirubin.to capri [mass/volume ] in serum or plasma 0.5 mg/dL low: 0.2mg/ dLhigh : 1.3mg/ dL normal Not Available Not Available 01/03/2025 11:15:29 01/03/20 25 01/02/2025 [facility] [place] [address] panel - Serum or Plasm a calcium [mass/volume ] in serum or plasma 9.5 mg/dL low: 8.4mg/ dLhigh : 10.2mg /dL normal Not Available Not Available 01/03/2025 11:15:29 01/03/20 25 01/02/2025 Compr [facility] nadeem metab olic 1999 panel - Serum or Plasm a protein [mass/volume ] in serum or plasma 6.6 g/dL low: 6.3g/d Lhigh: 8.2g/d L normal Not Available Not Available 01/03/2025 11:15:29 01/03/20 25 01/02/2025 Compr ehens nadeem metab olic 1999 panel - Serum or Plasm a albumin [mass/volume ] in serum or plasma 4 g/dL low: 3.4g/d Lhigh: 5g/dL normal Not Available Not Available 01/03/2025 11:15:29 01/03/20 25 01/02/2025 Compr ehens nadeem metab olic 1999 panel - Serum or Plasm a globulin [mass/volume ] in serum 2.6 g/dL low: 2.6g/d Lhigh: 4.2g/d L normal Not Available Not Available 01/03/2025 11:15:29 01/03/20 25 01/02/2025 [facility] 1999 panel - Serum or Plasm a albumin/glob ulin [mass ratio] in serum or plasma 1.5 ratio low: 1ratio high: 2ratio normal Not Available Not Available 01/03/2025 11:15:29 01/03/20 25 01/02/2025 Fibri n D-dim er FEU [Mass /volu me] in Plate let poor plasm a fibrin D-dimer feu [mass/volume ] in platelet poor plasma 0.23 mg/L_ feu low: 0mg/L feuhig h: 0.49mg /L feu normal Not Available Not Available 01/03/2025 11:15:29 01/03/20 25 01/02/2025 CBC W Auto Diffe renti al panel - Blood leukocytes [#/volume] in blood by automated count 6.1 x10'3 /uL low: 4.2x10 '3/uLh igh: 10.8x1 0'3/uL normal Not Available Not Available 01/03/2025 11:15:29 01/03/20 25 01/02/2025 CBC W Auto Diffe renti al panel - Blood erythrocytes [#/volume] in blood by automated count 4.02 x10'6 /uL low: 3.8x10 '6/uLh igh: 5.2x10 '6/uL normal Not Available Not Available 01/03/2025 11:15:29 01/03/20 25 01/02/2025 CBC W Auto Diffe renti al panel - Blood hemoglobin [mass/volume ] in blood 12.5 g/dL low: 12g/dL high: 15.6g/ dL normal Not Available Not Available 01/03/2025 11:15:29 01/03/20 25 01/02/2025 CBC W Auto Diffe renti al panel - Blood hematocrit [volume fraction] of blood by automated count 37.3 % low: 35.7%h igh: 45.7% normal Not Available Not Available 01/03/2025 11:15:29 01/03/20 25 01/02/2025 CBC W Auto Diffe renti al panel - Blood MCV [entitic mean volume] in red blood cells by automated count 92.8 fL low: 82fLhi gh: 99fL normal Not Available Not Available 01/03/2025 11:15:29 01/03/20 25 01/02/2025 CBC W Auto Diffe renti al panel - Blood MCH [entitic mass] by automated count 31.1 pg low: 27pghi gh: 33pg normal Not Available Not Available 01/03/2025 11:15:29 01/03/20 25 01/02/2025 CBC W Auto Diffe renti al panel - Blood MCHC [entitic mass/volume] in red blood cells by automated count 33.5 g/dL low: 31g/dL high: 36g/dL normal Not Available Not Available 01/03/2025 11:15:29 01/03/20 25 01/02/2025 CBC W Auto Diffe renti al panel - Blood erythrocyte [distwidth] in red blood cells 14.2 % low: 11.8%h igh: 15.5% normal Not Available Not Available 01/03/2025 11:15:29 01/03/20 25 01/02/2025 CBC W Auto Diffe renti al panel - Blood platelets [#/volume] in blood by automated count 224 x10'3 /uL low: 150x10 '3/uLh igh: 400x10 '3/uL normal Not Available Not Available 01/03/2025 11:15:29 01/03/20 25 01/02/2025 CBC W Auto Diffe renti al panel - Blood platelet [entitic mean volume] in blood by automated count 10.9 fL low: 9fLhig h: 12.4fL normal Not Available Not Available 01/03/2025 11:15:29 01/03/20 25 01/02/2025 CBC W Auto Diffe renti al panel - Blood neutrophils/ leukocytes in blood 49 % low: 39%hig h: 72% normal Not Available Not Available 01/03/2025 11:15:29 01/03/20 25 01/02/2025 CBC W Auto Diffe renti al panel - Blood lymphocytes/ leukocytes in blood 37.7 % low: 16%hig h: 47% normal Not Available Not Available 01/03/2025 11:15:29 01/03/20 25 01/02/2025 CBC W Auto Diffe renti al panel - Blood monocytes/le ukocytes in blood 9 % low: 5%high : 12% normal Not Available Not Available 01/03/2025 11:15:29 01/03/20 25 01/02/2025 CBC W Auto Diffe renti al panel - Blood eosinophils [#/volume] in blood 3.1 % low: 1%high : 7% normal Not Available Not Available 01/03/2025 11:15:29 01/03/20 25 01/02/2025 CBC W Auto Diffe renti al panel - Blood basophils/le ukocytes in blood 1 % low: 0%high : 2% normal Not Available Not Available 01/03/2025 11:15:29 01/03/20 25 01/02/2025 CBC W Auto Diffe renti al panel - Blood immature granulocytes /leukocytes in blood 0.2 % low: 0%high : 0.5% normal Not Available Not Available 01/03/2025 11:15:29 01/03/20 25 01/02/2025 CBC W Auto Diffe renti al panel - Blood neutrophils [#/volume] in blood 2.99 x10'3 /uL low: 1.5x10 '3/uLh igh: 8x10'3 /uL normal Not Available Not Available 01/03/2025 11:15:29 01/03/20 25 01/02/2025 CBC W Auto Diffe renti al panel - Blood lymphocytes [#/volume] in blood 2.3 x10'3 /uL low: 1.07x1 0'3/uL high: 3.43x1 0'3/uL normal Not Available Not Available 01/03/2025 11:15:29 01/03/20 25 01/02/2025 CBC W Auto Diffe renti al panel - Blood monocytes [#/volume] in blood 0.55 x10'3 /uL low: 0.29x1 0'3/uL high: 0.99x1 0'3/uL normal Not Available Not Available 01/03/2025 11:15:29 01/03/20 25 01/02/2025 CBC W Auto Diffe renti al panel - Blood eosinophils [#/volume] in blood 0.19 x10'3 /uL low: 0.02x1 0'3/uL high: 0.53x1 0'3/uL normal Not Available Not Available 01/03/2025 11:15:29 01/03/20 25 01/02/2025 CBC W Auto Diffe renti al panel - Blood basophils [#/volume] in blood 0.06 x10'3 /uL low: 0.01x1 0'3/uL high: 0.08x1 0'3/uL normal Not Available Not Available 01/03/2025 11:15:29 01/03/20 25 01/02/2025 CBC W Auto Diffe renti al panel - Blood immature granulocytes [#/volume] in blood 0.01 x10'3 /uL low: 0x10'3 /uLhig h: 0.05x1 0'3/uL normal Not Available Not Available 01/03/2025 11:15:29 01/03/20 25 01/02/2025 CBC W Auto Diffe renti al panel - Blood nucleated erythrocytes /leukocytes [ratio] in blood 0 % high: 0% normal Not Available Not Available 01/03/2025 11:15:29 01/03/20 25 01/02/2025 CBC W Auto Diffe renti al panel - Blood nucleated erythrocytes [#/volume] in blood by automated count 0 x10'3 /uL normal Not Available Not Available 01/04/20 11:15:29 01/04/20 25 01/03/2025 [facility] 1999 panel - Serum or Plasm a sodium [moles/volum e] in blood 136 mmol/ L low: 137mmo l/Lhig h: 145mmo l/L low Not Available Not Available 01/03/2025 11:15:29 01/04/20 25 01/03/2025 [facility] 1999 panel - Serum or Plasm a potassium [moles/volum e] in serum or plasma 3.9 mmol/ L low: 3.5mmo l/Lhig h: 5.1mmo l/L normal Not Available Not Available 01/03/2025 11:15:29 01/04/20 25 01/03/2025 [facility] 1999 panel - Serum or Plasm a chloride [moles/volum e] in serum or plasma 108 mmol/ L low: 98mmol /Lhigh : 107mmo l/L high Not Available Not Available 01/03/2025 11:15:29 01/04/20 25 01/03/2025 [facility] 1999 panel - Serum or Plasm a carbon dioxide, total [moles/volum e] in serum or plasma 26 mmol/ L low: 22mmol /Lhigh : 30mmol /L normal Not Available Not Available 01/03/2025 11:15:29 01/04/20 25 01/03/2025 [facility] 1999 panel - Serum or Plasm a anion gap in serum or plasma by calculation 5.9 mmol/ L low: 14mmol /Lhigh : 22mmol /L low Not Available Not Available 01/03/2025 11:15:29 01/04/20 25 01/03/2025 [facility] 1999 panel - Serum or Plasm a glucose [mass/volume ] in serum or plasma 105 mg/dL low: 70mg/d Lhigh: 99mg/d L high Not Available Not Available 01/03/2025 11:15:29 01/04/20 25 01/03/2025 [facility] 1999 panel - Serum or Plasm a urea nitrogen [mass or moles/volume ] in serum or plasma 11 mg/dL low: 8mg/dL high: 19mg/d L normal Not Available Not Available 01/03/2025 11:15:29 01/04/20 25 01/03/2025 Basic metab olic 1999 panel - Serum or Plasm a creatinine [mass/volume ] in serum or plasma 0.91 mg/dL low: 0.66mg /dLhig h: 1.25mg /dL normal Not Available Not Available 01/03/2025 11:15:29 01/04/20 25 01/03/2025 Basic metab olic 1999 panel - Serum or Plasm a glomerular filtration rate [volume rate/area] in serum, plasma or blood by based on 1.73 sq M >60 normal Not Available Not Available 11:15:29 01/04/20 25 01/03/2025 Basic metab olic 1999 panel - Serum or Plasm a calcium [mass/volume ] in serum or plasma 9.1 mg/dL low: 8.4mg/ dLhigh : 10.2mg /dL normal Not Available Not Available 01/03/2025 11:15:29 03/22/20 23 03/22/2023 MRI, brain , w/o contr ast No observ ation record ed. [facility] [address] [place], [address], 04/03/2023 16:06:47 03/30/20 23 03/30/2023 CT, head, w/o contr ast No observ ation record ed. [facility] [address] [place], [address], 03/31/2023 08:15:39 05/06/20 23 03/30/2023 CT, head, w/o contr ast No observ ation record ed. [facility] [address] [place], [address], 05/06/2023 13:41:40 05/06/20 23 03/30/2023 CT, head, w/o contr ast No observ ation record ed. [facility] [address] [place], [address], 05/06/2023 13:42:11 05/23/20 23 05/23/2023 XR, knee No observ ation record ed. [facility] [address] [place], [address], 06/30/2024 12:42:33 05/24/20 23 05/24/2023 MAMMO , scree shashi, bilat eral No observ ation record ed. [facility] [address] [place], [address], 06/30/2024 12:42:33 06/03/20 23 05/31/2023 CT, angio gram, chest , w/ contr ast No observ ation record ed. [facility] [address], [place], [address], 06/30/2024 12:42:32 08/03/20 24 08/03/2024 MAMMO , scree shashi, digit al, bilat eral No observ ation record ed. [facility] [address] [place], [address], 12/30/2024 12:58:24 01/19/20 25 01/18/2025 imagi ng/di agnos tic resul t No observ ation record ed. [facility] [id number], [place], [address], 01/18/2025 16:43:39 Result Notes None recorded. Problems Name Problem SNOMED Code Status Onset Date Resolution Date Notes Provider Name and Address Organization Details Recorded Time Influenza vaccination declined 057287639 Active 2017 Not Available [facility] 4 22:43:00 Mixed anxiety and depressive disorder 577802465 Active 2017 Not Available [facility] 4 22:43:00 Mammography abnormal 136902889 Active 2020 Not Available [facility] 4 22:43:00 SARS-CoV-2 vaccination declined 7408118102 Active 2022 Not Available [facility] 4 22:43:00 Vitamin B12 deficiency (non anemic) 42207541 Active 2022 Not Available [facility] 4 22:43:00 Palpitations 65237482 Active Not Available [facility] 4 22:43:00 Generalized anxiety disorder 44265954 Active Not Available [facility] 4 22:43:00 Depressive disorder 09906728 Active Not Available [facility] 4 22:43:00 Overweight 003672103 Active Not Available [facility] 4 22:43:00 Chest pain 67291044 Active Not Available [facility] 4 22:43:00 Anemia 433258633 Active Not Available [facility] 4 22:43:00 Fatigue 72533657 Active Not Available [facility] 4 22:43:00 Iron deficiency anemia 29388145 Active Not Available [facility] 4 22:43:00 Cardiovascul ar stress test abnormal 004672184 Active Not Available [facility] 4 22:43:00 Disorder of lipid metabolism 004926395 Active Not Available [facility] 4 22:43:00 Benign hypertension 31529137 Active Not Available [facility] 4 22:43:00 Problem Notes None recorded. Procedures Surgical History Date Name Laterality Status Provider Name and Address Organization Details Recorded Time 2023 esophagogastroduodenoscopy completed Kwan Bello MD Attn: Misael solis,[address] [place], [address], [place] 4 09:08:05 2020 Date of Last Pap Smear completed IVY VELAZQUEZ Attn: Misael solis,[address] [place], [address], [place] [facility] 1 10:13:33 2018 colonoscopy completed Mohsen Fenrandes MD Attn: Misael solis,[address] [facility], [place], [address], [place] [facility] 1 11:14:05 2014 Date of Last Mammogram completed Mohsen Fernandes MD Attn: Misael solis,[address], [place], [address], [facility] [facility] 11:17:32 Caesarean Section completed January RUEL Saha PA - [facility] 5 15:52:05 Imaging Results Imaging Date Name Status LastModified by Organiz ation Details LastModified Time 03/22/2023 MRI, brain, w/o contrast completed [facility] [address] [place], [address], 04/03/2023 16:06:47 03/30/2023 CT, head, w/o contrast completed [facility] [address] [place], [address], 03/31/2023 08:15:39 03/30/2023 CT, head, w/o contrast completed [facility] [address] [place], [address], 05/06/2023 13:41:40 03/30/2023 CT, head, w/o contrast completed [facility] [address] [place], [address], 05/06/2023 13:42:11 05/23/2023 XR, knee completed [facility] [address] [place], [address], 06/30/2024 12:42:33 05/24/2023 MAMMO, screening, bilateral completed [facility] [address] [place], [address], 06/30/2024 12:42:33 05/31/2023 CT, angiogram, chest, w/ contrast completed [facility] [address], [place], [address], 06/30/2024 12:42:32 08/03/2024 MAMMO, screening, digital, bilateral completed [facility] [address] [place], [address], 12/30/2024 12:58:24 01/18/2025 imaging/diagno stic result active [facility] [address] [facility] [address], [place], [address], 01/18/2025 16:43:39 Procedure Notes None recorded. Medical Equipment None Reported. Allergies Allergen ID Allergen Name Allergen Category Reaction Reaction Severity Criticality Documentation Date Start Date Code Code System Note Provider Name and Address Organization Details Recorded Time 147637 No known allergy (situatio n) Not available Not available Not available Not available 01/17/2023 [id number] SNOMED Not Available Not Available Not Available No known drug allergies Medications Name Sig Start Date Stop Date Status Note LastModified by Organization Details LastModified Time multivita min tablet TAKE 1 TABLET BY MOUTH EVERY DAY 01/08 completed Not Available Not Available Not Available losartan 50 mg tablet TAKE 1 TABLET BY MOUTH EVERY DAY DIRECTED 01/17 completed Not Available Not Available Not Available fluoxetin e 40 mg capsule TAKE 2 CAPSULES BY MOUTH DAILY 06/30 completed Not Available Not Available Not Available amoxicill in 500 mg capsule TAKE 2 CAPSULES BY MOUTH NOW THEN 1 CAPSULE BY MOUTH THREE TIMES DAILY UNTIL ALL TAKEN 03/19 completed Not Available Not Available Not Available atorvasta tin 40 mg tablet TAKE 1 TABLET BY MOUTH EVERY DAY AT BEDTIME FOR LIPIDS active Not Available Not Available No t Available lamotrigi ne 150 mg tablet TAKE 1 TABLET BY MOUTH TWICE DAILY 03/19 completed Not Available Not Available Not Available clonidine HCl 0.1 mg tablet Take 1 tablet every day by oral route for 7 days. 05/01 completed Not Available Not Available Not Available acetamino phen 325 mg tablet 650 mg by oral route. 12/09 completed Not Available Not Available Not Available venlafaxi ne ER 75 mg capsule,e xtended release 24 hr 10/06 completed Not Available Not Available Not Available lamotrigi ne 200 mg tablet Take 1 tablet by oral route. 05/01 completed Not Available Not Available Not Available venlafaxi ne 75 mg tablet 08/18 completed Not Available Not Available Not Available trazodone 50 mg tablet TAKE 1 TABLET BY MOUTH AT BEDTIME 03/19 completed Not Available Not Available Not Available polyethyl sharita glycol 3350 17 gram oral powder packet MIX AND DRINK 1 PACKET IN 8 OZ OF LIQUID EVERY DAY 06/30 completed Not Available Not Available Not Available ibuprofen 800 mg tablet 10/06 completed Not Available Not Available Not Available hydrocodo ne 5 mg-acetam inophen 325 mg tablet 10/06 completed Not Available Not Available Not Available lorazepam 2 mg/mL injection solution 2 mg by injectio n route. 02/01 completed Not Available Not Available Not Available ondansetr on HCl 4 mg tablet 10/25 completed Not Available Not Available Not Available olanzapin e 5 mg tablet TAKE 1 TABLET BY MOUTH EVERY DAY 06/30 completed Not Available Not Available Not Available venlafaxi ne ER 150 mg capsule,e xtended release 24 hr 03/13 completed Not Available Not Available Not Available cyanocoba norman (vit B-12) 1,000 mcg tablet Take 1 tablet every day by oral route for 90 days. 10/11 completed Not Available Not Available Not Available penicilli n V potassium 500 mg tablet 10/06 completed Not Available Not Available Not Available olanzapin e 10 mg tablet TAKE 1 TABLET BY MOUTH EVERY DAY 06/30 completed Not Available Not Available Not Available amlodipin e 5 mg tablet TAKE 1 TABLET BY MOUTH EVERY DAY DIRECTED FOR HYPERTEN SHAMIKA active Not Available Not Available No t Available olanzapin e 2.5 mg tablet TAKE 1 TABLET BY MOUTH EVERY DAY NEEDED 03/19 completed Not Available Not Available Not Available aspirin 81 mg tablet,de layed release TAKE 1 TABLET BY MOUTH DAILY active Not Available Not Available No t Available lamotrigi ne 25 mg tablet TAKE 1 TABLET BY MOUTH DAILY 03/13 completed Not Available Not Available Not Available magnesium oxide 400 mg (241.3 mg magnesium ) tablet TAKE 1 TABLET BY MOUTH TWICE DAILY 06/30 completed Not Available Not Available Not Available Nitrostat 0.4 mg sublingua l tablet 0.4 mg by sublingu al route. 12/09 completed Not Available Not Available Not Available trazodone 100 mg tablet TAKE 1 TABLET BY MOUTH EVERY NIGHT AT BEDTIME 05/01 completed Not Available Not Available Not Available lithium carbonate 600 mg capsule TAKE 1 CAPSULE BY MOUTH TWICE DAILY 06/30 completed Not Available Not Available Not Available amlodipin e 10 mg tablet TAKE 1 TABLET BY MOUTH DAILY 06/30 completed Not Available Not Available Not Available lithium carbonate 300 mg capsule TAKE 1 CAPSULE BY MOUTH TWICE DAILY 06/30 completed Not Available Not Available Not Available fluvoxami ne 100 mg tablet TAKE 1 TABLET BY MOUTH EVERY EVENING 01/08 completed Not Available Not Available Not Available pantopraz ole 40 mg tablet,de layed release Take 1 tablet every day by oral route as directed for 30 days. active Not Available Not Available No t Available cyanocoba norman (vit B-12) 1,000 mcg/mL injection solution Inject 1 mL every month by subcutan eous route as directed for 30 days. 06/30 completed Not Available Not Available Not Available buspirone 30 mg tablet TK 1 T PO BID 03/13 completed Not Available Not Available Not Available ranitidin e 150 mg tablet 08/18 completed Not Available Not Available Not Available promethaz ine 25 mg tablet 03/19 completed Not Available Not Available Not Available losartan 25 mg tablet Take 1 tablet by oral route. 05/01 completed Not Available Not Available Not Available bupropion HCl 75 mg tablet TAKE 1 TABLET BY MOUTH EVERY MORNING 01/08 completed Not Available Not Available Not Available hydrochlo rothiazid e 12.5 mg capsule 10/25 completed Not Available Not Available Not Available gabapenti n 300 mg capsule TAKE 2 CAPSULES BY MOUTH THREE TIMES DAILY 05/01 completed Not Available Not Available Not Available aspirin 81 mg chewable tablet 81 mg by oral route. 01/10 completed Not Available Not Available Not Available folic acid 1 mg tablet Take 1 tablet every day by oral route for 30 days. 10/06 completed Not Available Not Available Not Available hydroxyzi ne HCl 25 mg tablet TAKE 1 TABLET BY MOUTH EVERY 6 HOURS NEEDED FOR ANXIETY active Not Available Not Available No t Available olanzapin e 15 mg tablet TAKE 1 TABLET BY MOUTH EVERY DAY FOR 12 DAYS 06/30 completed Not Available Not Available Not Available cyanocoba norman (vit B-12) 1,000 mcg sublingua l tablet Place 1 tablet every day by sublingu al route around the clock for 90 days. 06/30 completed OT Not Available Not Available Not Available ranitidin e 150 mg capsule 08/18 completed Not Available Not Available Not Available lisinopri l 5 mg tablet Take 1 tablet every day by oral route for 90 days. 10/06 completed Not Available Not Available Not Available hydrochlo rothiazid e 25 mg tablet Take 0.5 tablets by oral route. 05/01 completed Not Available Not Available Not Available fluvoxami ne 50 mg tablet TAKE 1 TABLET BY MOUTH EVERY EVENING 01/08 completed Not Available Not Available Not Available mirtazapi ne 15 mg tablet 10/06 completed Not Available Not Available Not Available sodium chloride 0.9 % intraveno us solution 1000 mL by intraven . route. 02/01 completed Not Available Not Available Not Available metoprolo l succinate ER 25 mg tablet,ex tended release 24 hr TAKE 1 TABLET BY MOUTH EVERY DAY DIRECTED FOR HYPERTEN SHAMIKA active Not Available Not Available No t Available ergocalci ferol (vitamin D2) 1,250 mcg (50,000 unit) capsule TAKE 1 CAPSULE BY MOUTH ONCE A WEEK active Not Available Not Available No t Available lorazepam 1 mg tablet TAKE 1 TABLET BY MOUTH EVERY 8 HOURS NEEDED 03/19 completed Not Available Not Available Not Available losartan 50 mg-hydroc hlorothia zide 12.5 mg tablet TAKE 1 TABLET BY MOUTH EVERY DAY 01/08 completed Not Available Not Available Not Available losartan 100 mg tablet medicati on:losar oconnor 100 mg tablet d ose:0.0 route:P O freque ncy:FELY Y 05/01 completed Not Available Not Available Not Available lithium carbonate 300 mg tablet TAKE 1 TABLET BY MOUTH TWICE DAILY 06/30 completed Not Available Not Available Not Available fluoxetin e 20 mg capsule TAKE 3 CAPSULES BY MOUTH ONCE DAILY 06/30 completed Not Available Not Available Not Available dicyclomi ne 10 mg capsule 10/25 completed Not Available Not Available Not Available lamotrigi ne 100 mg tablet TAKE 1 TABLET BY MOUTH AT BEDTIME 01/08 completed Not Available Not Available Not Available Tums 200 mg (as calcium carbonate 500 mg) chewable tablet 1000 mg by oral route. 12/09 completed Not Available Not Available Not Available naproxen 500 mg tablet 10/06 completed Not Available Not Available Not Available amoxicill in 875 mg-potass ium clavulana te 125 mg tablet 10/25 completed Not Available Not Available Not Available buspirone 15 mg tablet TK 1 T PO BID 03/13 completed Not Available Not Available Not Available hydroxyzi ne pamoate 25 mg capsule 03/19 completed Not Available Not Available Not Available enoxapari n 40 mg/0.4 mL subcutane ous syringe 40 mg by sub-q route. 12/09 completed Not Available Not Available Not Available aripipraz ole 15 mg tablet TAKE 1 TABLET BY MOUTH DAILY 06/30 completed Not Available Not Available Not Available Klor-Con M20 mEq tablet,ex tended release 20 milliequ ivalents by oral route. 02/01 completed Not Available Not Available Not Available bupropion HCl XL 300 mg 24 hr tablet, extended release TAKE 1 TABLET BY MOUTH EVERY MORNING 01/08 completed Not Available Not Available Not Available bupropion HCl XL 150 mg 24 hr tablet, extended release TAKE 1 TABLET BY MOUTH DAILY IN THE MORNING 12/30 completed Not Available Not Available Not Available duloxetin e 60 mg capsule,d elayed release TAKE 1 CAPSULE BY MOUTH EVERY DAY 05/01 completed Not Available Not Available Not Available simethico ne 80 12/30 completed Not Available Not Available Not Available quetiapin e 50 mg tablet TAKE 1 TABLET BY MOUTH EVERY DAY AT BEDTIME 03/19 completed Not Available Not Available Not Available Oysco 500/D 500 mg-5 mcg (200 unit) tablet 06/08 completed Not Available Not Available Not Available cholecalc iferol (vitamin D3) 25 mcg (1,000 unit) tablet TAKE 1 TABLET BY MOUTH ONCE DAILY 06/30 completed Not Available Not Available Not Available ondansetr on HCl (PF) 4 mg/2 mL injection solution 4 mg by injectio n route. 12/09 completed Not Available Not Available Not Available hydrochlo rothiazid e 12.5 mg tablet Take 1 tablet every day by oral route for 30 days. 10/25 completed Not Available Not Available Not Available peg 3350 240 gram-elec trolytes 22.72 gram-6.72 g-5.84 g powdr for soln 03/13 completed Not Available Not Available Not Available FeroSul 325 mg (65 mg iron) tablet TAKE 1 TABLET BY MOUTH THREE TIMES DAILY 01/08 completed Currentl t takes it once a day Not Available Not Available Not Available Calcium with Vitamin D 600 mg-10 mcg (400 unit) tablet Take 1 tablet twice a day by oral route. 06/08 completed Not Available Not Available Not Available cyanocoba norman (vit B-12) 1,000 mcg/15 mL oral liquid Take 15 mL every day by oral route as directed for 30 days. 10/25 completed Not Available Not Available Not Available lamotrigi ne ER 200 mg tablet,ex tended release 24 hr Take 1 tablet by oral route. 05/01 completed Not Available Not Available Not Available lurasidon e 40 mg tablet TAKE 1 TABLET BY MOUTH DAILY IN THE EVENING WITH FOOD 12/30 completed Not Available Not Available Not Available lurasidon e 20 mg tablet TAKE 1 TABLET BY MOUTH DAILY IN THE EVENING WITH FOOD 12/30 completed Not Available Not Available Not Available Caplyta 42 mg capsule TAKE 1 CAPSULE BY MOUTH DAILY 06/30 completed Not Available Not Available Not Available Daily-Vit e (with folic acid) 400 mcg tablet 03/19 completed Not Available Not Available Not Available Auvelity 45 mg-105 mg tablet, extended release TAKE 1 TABLET BY MOUTH DAILY X 3 DAYS. INCREASE TO TWICE DAILY AFTER THAT active Not Available Not Available No t Available Vitals Date Recorded Body height Body mass index (BMI) Body weight Heart rate Oxygen saturation Oxygen saturation in Arterial blood by Pulse oximetry Respiratory rate Systolic blood pressure Diastolic blood pressure Provider Name and Address Organization Details Last Updated DateTime 3 158.75 cm 29.3 kg/m2 52090.5 6 g 100 /min 99 % 99 % 14 /min 156 mm[Hg] 100 mm[Hg] Shyann Eng [place] - [facility] 3 14:49:59 Date Recorded Body height Body mass index (BMI) Body weight Heart rate Respiratory rate Oxygen saturation Oxygen saturation in Arterial blood by Pulse oximetry Systolic blood pressure Diastolic blood pressure Provider Name and Address Organization Details Last Updated DateTime 3 158.75 cm 31.3 kg/m2 65466.0 7 g 88 /min 14 /min 99 % 99 % 138 mm[Hg] 82 mm[Hg] Alessia Morris MA [facility] 3 12:22:19 Date Recorded Body height Provider Name an d Address Organization Details Last Updated DateTime 05/16/2023 158.75 cm Shyann Eng MA [facility] 023 17:01:35 Date Recorded Body height Body mass index (BMI) Body weight Heart rate Oxygen saturation Oxygen saturation in Arterial blood by Pulse oximetry Respiratory rate Body temperature Systolic blood pressure Diastolic blood pressure Provider Name and Address Organization Details Last Updated DateTime 4 158.75 cm 31.5 kg/m2 75885.6 6 g 82 /min 99 % 99 % 16 /min 98.2 [degF] 130 mm[Hg] 84 mm[Hg] Shyann Eng MA [facility] SI 4 12:37:53 Date Recorded Body height Body mass index (BMI) Body weight Heart rate Oxygen saturation Oxygen saturation in Arterial blood by Pulse oximetry Body temperature Systolic blood pressure Diastolic blood pressure Provider Name and Address Organization Details Last Updated DateTime 5 158.75 cm 31.5 kg/m2 03163.3 8 g 78 /min 100 % 100 % 98.3 [degF] 150 mm[Hg] 90 mm[Hg] Shyann Eng MA [facility] SI 5 12:54:42 Social History Question Answer Notes LastModified by Organizat ion Details LastModified Time Tobacco Smoking Status Never Smoker January RUEL Saha [facility] 08/18/2015 15:52:05 What Is Your Level Of Alcohol Consumption? Occasional Information not available 10/06/2018 How Many Years Have You Consumed Alcohol? 20 Information not available 03/13/2021 What Is Your Level Of Caffeine Consumption? Moderate Information not available 01/17/2023 How Much Tobacco Do You Chew? None Information not available 10/06/2018 What Type Of Diet Are You Following? REGULAR Information not available 10/06/2018 Do You Or Have You Ever Used E-cigarettes Or Vape? Never Used Electronic Cigarettes Information not available 03/13/2021 Hard Of Hearing Or Deaf In One Or Both Ears? No Information not available 10/06/2018 Legally Blind In One Or Both Eyes? No Information no t available 10/06/2018 What Was The Date Of Your Most Recent Tobacco Screening? 12/30/2024 Information not available 12/30/2024 Do You Or Have You Ever Used Smokeless Tobacco? Never Used Smokeless Tobacco Information not available 03/13/2021 How Much Tobacco Do You Smoke? No Information not available 10/06/2018 Do You Use Any Illicit Or Recreational Drugs? No Information not available 03/13/2021 Has Tobacco Cessation Counseling Been Provided? Yes Information not available 03/13/2021 On What Date Was Tobacco Cessation Counseling Provided? 06/30/2024 Information not available 06/30/2024 How Many Years Have You Smoked Tobacco? 0 Information not available 10/06/2018 Do You Or Have You Ever Used Any Other Forms Of Tobacco Or Nicotine? Yes Information not available 03/13/2021 Sex: Unknown Functional Status Question Answer Note LastModified by Organizat ion Details LastModified Time What is your exercise level? Occasional Information not available 10/06/2018 Mental Status None recorded. Family History Relationship Description Onset Age of this Age Resolved Age Notes LastModified by Organization Details LastModified Time Mother Hypertensive disorder asavala Not available 2014 15:52:05 Father Diabetes mellitus asavala Not available 2014 15:52:05 Medical History Condition Response Coronary Artery Disease N Other N High Blood Pressure Y Atrial Fibrillation N Kidney or Bladder Problems N Thyroid Problems N GI Problems N Depression Y COPD N Blood Clots N Skin Problems N Anemia Y Heart Attack ([place]) N Anxiety Disorder Y Diabetes N Muscle, Joint, or Bone Problems N Seizures/Epilepsy N Acid Reflux (GERD) N Cancer N Stroke N Asthma N Allergies N High Cholesterol N Hepatitis N Liver Disease N Headaches N Osteoporosis N Heart Failure N Gynecological History Statement/Question Response Date of Last Mammogram 08/30/2015 Flow Heavy Date of LMP 05/07/2024 Menses Monthly Y Date of Last Pap Smear 05/04/2021 Duration of Flow (days) 5 Age at Menarche 10 Current Control Method None LMP Definite Obstetrics History GPAL:G 3 P 3 0 2 3 Type Value Multiple Births 0 Full Term 3 Induced 2 Spontaneous 0 Premature 0 Living 3 Ectopics 0 Total 3 Past Encounters Encounter ID Performer Location Encounter Start Date Encounter Closed Date Diagnosis/Indication Diagnosis SNOMED-CT Code Diagnosis ICD10 Code Diagnosis Note [id number] Mohsen Fernandes MD [facility] (Adult Med) [address] [place] [phone] 08/18/2015 15:24:07 08/22/2015 10:58:43 General examination of patient [id number] Z00.00 40 y/o BF who was last seen 06/24/2013 Depressive disorder 3548 9007 F32.9 F41.9 Previously under the care of Dr. Parada who was treating her depression and anxiety with Effexor and Buspar, she is now receiving care at [facility]. I have encouraged her to resume her Effexor. Overweight 600791988 E66 .3 Chest pain 67475666 R07. [address] ST done 11/30/2008 had revealed T wave abnormalit y and ant/inf ischemia, she was seen by Dr. Link in the past and she probably should fopllow up Anemia 695335345 D64.9 S/p EGD/capsul e endoscopy/ colonoscop y. She has seen both Sindy Horan and Cesar. Screening mammography 24 803829 Z12.31 Fatigue 33295815 R53.83 [id number] [facility] [address] [place] [address] 10/10/2015 15:33:01 10/11/2015 18:15:16 Cardiovascular stress test abnormal 472288648 R94.39 It appears that the plan is a CC Iron defic iency anemia 75822044 D50.9 D51.9 B12 & Iron deficiency , on oral iron which she tries to take at least once a day although she is prescribed this TID. She has an issue with taking oral medication s in general, the other issue is that the oral B12 tablets are not covered, she has asked about liquid B12 and I have provided her with a prescripti on. I will give her B12 IM today and she will decide if she wants to continue this or stay with the oral formulatio n. 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 HCTZ 12.5mg po daily, side effects were discussed, including dizziness, headache and a rash. Depressive disorder 3544 9007 F32.9 F41.9 Previously under the care of Dr. Parada who was treating her depression and anxiety with Effexor and Buspar, she is now receiving care at [facility]. I have encouraged her take her Effexor as prescribed . She has an issue with taking oral medication s in general. [id number] Mohsen Fernandes MD [facility] (Adult Med) [address] [place] [phone] 10/25/2016 11:21:27 10/30/2016 11:07:03 Anemia 966588958 D64.9 S/p EGD/capsul e endoscopy/ colonoscop y, she has seen both Drs. Horan and Cesar. She is not complaint with her oral iron and B12 IM, she takes oral B12. I will recheck her labs and decide on the need for further treatment Disorder o f vitamin B12 664149338 E53.8 Benign hypertension 1072 5009 I10 Not compliant with the HCTZ.Side effects of Lisinopril were discussed. Immunization refused 275 563221 Z28.20 General ex amination of patient 499250020 Z00.01 Screening mammography 24 587790 Z12.31 Depressive disorder 3547 9007 F32.9 F41.9 Previously under the care of Dr. Parada who was treating her depression and anxiety with Effexor and Buspar, she is now receiving care at [facility]. I have encouraged her take her Effexor as prescribed . She still has an issue with taking oral medication s in general. Impaired f asting glycemia 120861383 R73.01 Low back pain 036331847 M54.5 Kidney stone 70376075 N2 0.0 I do not think that this is the cause of her current bilateral back pain although I agree that she has non obstructin g R. sided kidney stones on CT scan. Noncomplia nce with medication regimen 308435555 Z91.14 [id number] MD José Enrique (Adult Med) [address] [place] [phone] 12/06/2016 12:22:44 12/06/2016 13:09:17 Vitamin B deficiency 07817840 E53.9 Vitamin D deficiency 347 64288 E55.9 Folic acid deficiency 19 0998018 E53.8 Anemia 817797188 D64.9 Benign ess ential hypertension 0866370 I10 They told me from [place] that I could get a BP cuff [id number] MD José Enrique (Adult Med) [address] [place] [phone] 10/06/2018 12:25:32 10/06/2018 13:12:03 General examination of patient 916367558 Z00.01 Benign hypertension 1072 5009 I10 Restart HCTZ. 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 Screening for malignant neoplasm of breast 652106996 Z12.31 General ex amination of patient 443838079 Z00.01 Adult heal th examination 403611710 Z00.01 Impaired f asting glycemia 301474984 R73.01 Disorder o f lipid metabolism 755992070 E78.9 R73.01 Eruption 182221120 R21 Immunization advised 310 617350 Z71.9 Anemia 929617231 D64.9 [id number] MD José Enrique (Adult Med) [address] [place] [phone] 0 04/27/2021 12:20:58 04/28/2021 18:28:18 Benign hypertension 64706324 I10 Uncontroll edContinue HCTZ.Start Losartan, side effects were discussedL abs Disorder o f lipid metabolism 795419239 E78.9 R73.01 Discussed Chronic anemia 761297607 D64.9 History of B12 & Iron deficiency , anemia, previously on oral iron and then infusions. LabsConsid er restarting B12/or Fe replacemen t Blood in urine 60992946 R31.9 Immunization advised 310 214744 Z71.9 [id number] IVY MEJIAS (ONLINE EDITOR) [address] [place] [phone] 05/04/2021 09:25:54 05/05/2021 15:56:11 Gynecologic examination 23986516 Z01.419 -clinical breast & pelvic examinatio ns completed today, unremarkab le -cervical cancer screening: last Pap unknown many years ago . Repeated today -routine nuswab completed, treat as needed -Educated osteoporos is prevention including calcium rich diet, weight bearing exercise. Will start supplement . -RTC in 1yr Venereal d isease screening 971416266 Z11.3 Screening for malignant neoplasm of breast 353771256 Z12.31 Last mamm 08/30/15 BIRADS 1. Annual screening mamm ordered per Dr. Fernandes, scheduled in May. Obesity 087529792 E66.9 BMI 35.5. Diet high in fruits and vegetables . Limit fat, sugar, and processed foods. Exercise at least 30 minutes 5x/week. Microscopic hematuria 19 7711267 R31.29 Noted by PCP 04/27/21. UA today with moderate blood. Advised to follow up with PCP. [id number] MD José Enrique (Adult Med) [address] [place] [address] [phone] 06/08/2021 12:23:28 06/09/2021 05:50:41 Chronic anemia 243554347 D64.9 B12 & Iron deficiency , anemia, previously on oral iron and then infusions. Continue iron but take it TID and start B12 injection. Colonoscop y Mammography abnormal 168 379518 R92.8 Abnormal MMG 05/08/2021Fo olya area of asymmetry R. outer mid breastUS 05/18/2021 benign Blood in urine 14767201 R31.9 Vaccine de clined by patient [id number] 02 Z28.29 [id number] MD José Enrique (Adult Med) [address] [place] [address] [phone] 08/09/2021 12:24:10 08/10/2021 12:04:08 Chronic anemia 698745687 D64.9 B12 & Iron deficiency , anemia.Con tinue iron and B12 injections .Colonosco py 01/23/2019 Blood in urine 69323863 R31.9 Labs 06/08/2021, her hematuria persistsUS normalUrol ogy Benign hypertension 1072 5009 I10 Uncontroll edContinue HCTZ.Incre ase Losartan to 50 mg, side effects were discussed [id number] MD José Enrique (Adult Med) [address] [place] [address] [phone] 0 01/08/2023 10:02:03 01/09/2023 09:12:01 General examination of patient 007244291 Z00.01 SARS-CoV-2 vaccination declined 9534437470 Z28.21 Influenza vaccination declined 677869086 Z28.21 Screening for malignant neoplasm of breast 261764241 Z12.31 Essential hypertension 08373414 I10 She has apparently been taking Losartan/H CTZ 50/12.5, her blood pressure is uncontroll ed.Stop Losartan/H CTZ 50/12.5Sta rt Losartan 50 mgStart HCTZ 25 mgSide effects were discussed Palpitations 26548647 R0 0.2 Impaired dentition 05403 4008 K03.9 Chronic anemia 645900868 D64.9 Hx of B12 & Iron deficiency , anemia.Col onoscopy 01/23/2019 Screening for malignant neoplasm of cervix 792008848 Z12.4 [id number] MD José Enrique (Adult Med) [address] [place] [address] [phone] 01/17/2023 11:55:59 01/18/2023 14:28:38 Vitamin B12 deficiency (non anemic) 79984707 E53.8 Disorder o f lipid metabolism 815588574 E78.9 R73.01 Discussed Body mass index 30+ - obesity 243046902 Z68.31 Unexplaine d weight loss 211413610 R63.4 Benign hypertension 1072 5009 I10 Improvemen t noted although she is not yet at goal.Meaghan nue HCTZ 25 mg and Losartan 100 mg, side effects were discussed [id number] MD José Enrique (Adult Med) [address] [place] [address] [phone] 0 03/19/2023 14:31:23 03/20/2023 16:49:47 Insomnia 974431922 G47.00 Failing Trazodone, Seroquel Headache 31956159 R51.9 Paresthesia 81797517 R20 .2 It is unclear if this is side effect of one of her medication s Essential hypertension 46060810 I10 Continue Losartan 100 mg.Restart HCTZ 25 mg OV 01/17/2023S he has apparently been taking Losartan/H CTZ 50/12.5, her blood pressure is uncontroll ed.Stop Losartan/H CTZ 50/12.5Sta rt Losartan 50 mgStart HCTZ 25 mgSide effects were discussed [id number] MD José Enrique (Adult Med) [address] [place] [address] [phone] 05/01/2023 12:02:57 05/02/2023 14:37:41 Essential hypertension 87182022 I10 Stable on Amlodipine OV 03/19/2023 ontinue Losartan 100 mg.Restart HCTZ 25 mg OV 01/17/2023S he has apparently been taking Losartan/H CTZ 50/12.5, her blood pressure is uncontroll ed.Stop Losartan/H CTZ 50/12.5Sta rt Losartan 50 mgStart HCTZ 25 mgSide effects were discussed Medication monitoring 39 4022527 Z51.81 Impaired f asting glycemia 184689481 R73.01 Pain of ri ght knee joint 4150630852 91626 M25.561 Vitamin B1 2 deficiency (non anemic) 09140252 E53.8 B12 IM administer ed on 04/11/2023Sh e is on oral B12 but prefers IM B12 Follow-up visit [id number] 9 Z09 [id number] RUEL James (Adult Med) [address] [place] [address] [phone] 0 05/16/2023 16:54:25 05/21/2023 12:32:09 Vitamin B12 deficiency (non anemic) 24956686 E53.8 Labs 05/01/2023 B12 177Continu e B12 IM OV 05/01/2023 12 IM administer ed on 04/11/2023Sh e is on oral B12 but prefers IM B12 [id number] MD José Enrique (Adult Med) [address] [place] [address] [phone] 0 06/30/2024 12:24:15 07/03/2024 12:24:22 Essential hypertension 94636264 I10 Stable and may eventually need an increase in the dose of her Amlodipine She will be seeing her cardiologi st next week OV 05/01/2023S table on Amlodipine OV 03/19/2023 ontinue Losartan 100 mg.Restart HCTZ 25 mg OV 01/17/2023 he has apparently been taking Losartan/H CTZ 50/12.5, her blood pressure is uncontroll ed.Stop Losartan/H CTZ 50/12.5Sta rt Losartan 50 mgStart HCTZ 25 mgSide effects were discussed Impaired f asting glycemia 576836998 R73.01 Vitamin B1 2 deficiency (non anemic) 85691290 E53.8 OV 05/01/2023 12 IM administer ed on 04/11/2023Sh e is on oral B12 but prefers IM B12 Follow-up visit 95667838 9 Z09 Screening mammography 24 038848 Z12.31 Pure hypercholesterolemia 351492630 E78.00 Vitamin D deficiency 347 61097 E55.9 Gastroesop hageal reflux disease 946720427 K21.9 Influenza vaccination declined 194890032 Z28.21 [id number] MD José Enrique (Adult Med) [address] [place] [address] [phone] 0 12/30/2024 12:22:02 12/31/2024 11:29:09 Body mass index 30+ - obesity 266772087 Z68.31 Essential hypertension 67211484 I10 Uncontroll ed due to poor compliance OV 06/30/2024S table and may eventually need an increase in the dose of her Amlodipine She will be seeing her cardiologi st next week OV 05/01/2023S table on Amlodipine OV 03/19/2023 ontinue Losartan 100 mg.Restart HCTZ 25 mg OV 01/17/2023S he has apparently been taking Losartan/H CTZ 50/12.5, her blood pressure is uncontroll ed.Stop Losartan/H CTZ 50/12.5Sta rt Losartan 50 mgStart HCTZ 25 mgSide effects were discussed Impaired f asting glycemia 022994591 R73.01 Discussed Vitamin B1 2 deficiency (non anemic) 81278435 E53.8 Recheck Pure hypercholesterolemia 082064110 E78.00 Vitamin D deficiency 347 13391 E55.9 Health Concerns Section Related Observation LastModified by Organization Detai ls LastModified Time None Recorded Concern Status LastModified by Organization Details LastModified Time None Recorded Advance Directives Directive None Recorded Payers Encounter Date Sequence Insurance Name Policy Number Policy Bowen Covered Member ID Bowen Member ID Guarantor Name 03/19/2023 1 [facility] ON OR AFTER 04/06/21 (MEDICAID REPLACEMENT - HMO) Linda Mccoy [id number] Linda Mccoy 05/01/2023 1 [facility] ON OR AFTER 04/06/21 (MEDICAID REPLACEMENT - HMO) Linda Mccoy [id number] Linda Mccoy 05/16/2023 1 [facility] ON OR AFTER 04/06/21 (MEDICAID REPLACEMENT - HMO) Linda Mccoy [id number] Linda Mccoy 06/30/2024 1 [facility] ON OR AFTER 04/06/21 (MEDICAID REPLACEMENT - HMO) Linda Mccoy [id number] Linda Mccoy 12/30/2024 1 [facility] ON OR AFTER 04/06/21 (MEDICAID REPLACEMENT - HMO) Linda Mccoy [id number] Linda Mccoy Notes Date Note Type Note Provider Name and Address Organization Details Recorded Time 03/19/2023 text/html InsomniaReported bypatient.Quality:symp toms worse in the evening Severity:worsening; severe Duration:present for 1 month Context:using medications for sleep Modifying Factors:prescription medication Associated Symptoms:anxiety;depre ssion I am not good I have all this tingling They found a hole in my retina Could it be something neurological? Ms Mccoy returns, since her 01/17/2023 visit, she was seen in the ER on multiple occasions;On 02/01/2023 with BRANDEE and HTN.On 02/04/2023 with Palpitations, Sleep disturbances, History of anxiety and Depressed mood.On 03/03/2023 with Palpitations; Sleep disturbances; History of anxiety; Depressed moodOn 03/10/2023 with HTN, Insomnia. She continues to have trouble sleeping and Seroquel, Trazodone and Hydroxyzine have not helped She was admitted to the crisis center in [place] where she was started on Trazodone and Zyprexa. She complains of a right sided headache like fullness, there is no LOC, blurred vision but she has generalized parasthesia which she describes as pins and needles. There is no limb weakness or speech abnormalities. On her 03/12/2023 ER visit, the CT of the brain was normal. With regards to her HTN, her Losartan was increased to 100 mg but she has not been taking her HCTZ. Mohsen Fernandes MD Attn: Accounting, [facility], [place], [address], [facility] 03/19/2023 16:48:27 05/01/2023 text/html I am here for a follow up I was just going through a whole lot My sleep is back to normal now, so I discontinued a lot of that stuff A bone in my leg is hurting, it is hard for me to walk o n it Ms Mccoy returns, in the interim she was admitted 03/26/2023-04/08/2023 to the psychiatric unit, unfortunately, I do not have her D/C summary but her labs on admission suggest electrolyte abnormalities, a glucose of 205 and a creatinine of 3.02. Changes were made to both her medical and psychiatric medications and she is doing much better except for pain and a clicking sensation behind her right knee. In the interim, she was seen by the news clerk and diagnosed with Ocular Migraineand Vitreous syneresis. Her appointment with the neurologist is scheduled. Mohsen Fernandes MD Attn: Accounting, [address] [place], [address], [facility] 05/01/2023 14:06:48 06/30/2024 text/html I have not been to anybody, I have not been taking anything Just because I haven't been here, it is nothing ailing me, other than my stomach issues Admitted;06/14/24-06/15/24 CP due to GERD10/08/2023 MDD, HTN & Vitamin D deficiency ER; 05/31/2023 with palpitations She complains of chronic bloating and she has not followed up with GI. Since her last visit, she has been to the ER and was admitted twice, her chronic GI symptoms persist. She has also been taking care of her mother who has some recent health challenges. It appears that she was off her medications until her recent admission. Mohsen Fernandes MD Attn: Accounting,[address] [place], [address], [facility] 06/30/2024 13:21:30 12/30/2024 text/html Hypertension F/UReported bypatient.Associated Symptoms:no dizziness; no lightheadedness; no chest pain; no shortness of breath; no palpitations; no edema; no calf pain with exertion Lifestyle:regular exercise; limiting/avoiding salt Medications:no side effects from medication;not taking medications as directed Ms Mccoy has not taken her blood pressure medications for well over 24 hours, she has also not been taking her Atorvastatin. In the interim, she had an EGD and she was seen by her fur cutting machine operator who added Metoprolol to her regimen. Mohsen Fernandes MD Attn: Accounting,[address] [facility], [place], [address], [facility] 12/30/2024 13:53:56 OBGyn Episode Ob Episode Information Episode Created Date Number of Fetuses Patient Bloodtype Patient rh Status Prepregnancy Weight lbs Domestic Partner Domestic Partner Phone Father Name Copper Plater Status 05/04/20 21 1 CLOSED Fetus Data First Name Last Name Admitted to NICU Weight (g) Sex Living Outcome Pediatric Complications Fetus ID Race Codes Race Delivery Type F Full Term [id number] Johnie Calculation Initial Johnie Date Initial Exam Date Initial Exam Provider Initial Ultrasound Date Last Menstrual Period Date Ultra Sound Weeks Gestation 0 Eighteen To Twenty Week Johnie Update Ultra Sound Date Fundal Height At Umbil Quickening Date Ultra Sound Latest Weeks Gestation Final Johnie Confirmed By Final Johnie Confirmed Date Final Johnie Date Ultra Sound Latest Days Gestation 0 0 Menstrual History Last Menstrual Date Menses Monthly On Bcp Conception Prior Menses Frequency Hcg Plus Date Menarche Onset Age Delivery Information Delivery Date Delivery Type Labor Anesthesia Weeks Gestation Incision Type Labor Labor Length Hrs Delivered By Post Complications Tubal Sterilization Discharge Date Comments 0 Regional-Sp ina Discharge Information Feeding Method Contraceptive Method Maternal HG B and HCT Levels Ob Episode Information Episode Created Date Number of Fetuses Patient Bloodtype Patient rh Status Prepregnancy Weight lbs Domestic Partner Domestic Partner Phone Father Name Copper Plater Status 05/04/20 21 1 CLOSED Fetus Data First Name Last Name Admitted to NICU Weight (g) Sex Living Outcome Pediatric Complications Fetus ID Race Codes Race Delivery Type M Full Term [id number] Johnie Calculation Initial Johnie Date Initial Exam Date Initial Exam Provider Initial Ultrasound Date Last Menstrual Period Date Ultra Sound Weeks Gestation 0 Eighteen To Twenty Week Johnie Update Ultra Sound Date Fundal Height At Umbil Quickening Date Ultra Sound Latest Weeks Gestation Final Johnie Confirmed By Final Johnie Confirmed Date Final Johnie Date Ultra Sound Latest Days Gestation 0 0 Menstrual History Last Menstrual Date Menses Monthly On Bcp Conception Prior Menses Frequency Hcg Plus Date Menarche Onset Age Delivery Information Delivery Date Delivery Type Labor Anesthesia Weeks Gestation Incision Type Labor Labor Length Hrs Delivered By Post Complications Tubal Sterilization Discharge Date Comments 2 Discharge Information Feeding Method Contraceptive Method Maternal HG B and HCT Levels"
--- OUTSIDE RECORDS SUMMARY | 2025-01-18 16:50 | XMS_ITS | CONTINUITY OF CARE DOCUMENT ---
Author Name kumar, kumar Address Unknown Organization [facility] Address [address] [place] [address] Phone [phone] Care Team Providers Care Filler Feeder Name Role Phone Johana Mata MD Unavailable [phone] PEGGY FINK MD Unavailable PEGGY FINK MD Unavailable PROBLEMS Condition Status Date Provider Notes PALPITATIONS-11/15 NUC NEG completed - Johana santiago MD CP- 07/14 ECHO EF 60 completed - Johana Mata MD Chest pain--cath 06/30 showed Mild CAD active 1 Johana Mata MD Palpitations active Johana Mata MD Hypertension active Johana Mata MD Anxiety active Johana Mata MD ENCOUNTERS Date Type Provider Location Encounter Diag nosis 2 - 2 In-person encounter Office Visit Johana Mata MD [facility] Chest pain--cath 06/30 showed Mild CAD 8 - 8 In-person encounter Office Visit Johana Mata MD [facility] 1 - 1 In-person encounter Office Visit Johana Mata MD [facility] PALPITATIONS-11/15 NUC NEGCP- 07/14 ECHO EF 60Chest pain--cath 06/30 showed Mild CADPalpitationsAnxietyHypertension 0 - 2 In-person encounter Office Visit Moris Poole MD [facility] 3 - 5 In-person encounter Office Visit Moris Poole MD [facility] 1 - 8 In-person encounter Office Visit Mikel Link MD [facility] PALPITATIONS-11/15 NUC NEGCP- 07/14 ECHO EF 60 VITAL SIGNS Date Observation Value Provider Body Mass Index (Ratio) 31.70 kg/m2 Vikash Mata MD blood pressure, cuff size regular Ol ivia Mckinnon blood pressure, diastolic 86 mm[Hg] Ol ivia Mckinnon blood pressure, systolic 160 mm[Hg] [place] via Mckinnon oxygen saturation, oximetry 99 % Thalia Mckinnon respiratory rate E&M 12 /min Thalia Mckinnon pulse rate 74 /min Thalia Mckinnon weight E&M 179 [lb_av] Thalia Mckinnon height E&M 63 [in_i] ThaliaEverypost Body Mass Index (Ratio) 31.46 kg/m2 Vikash Mata MD blood pressure, diastolic 82 mm[Hg] ashley Mallory blood pressure, systolic 142 mm[Hg] She rrjavier [place] blood pressure, cuff size regular ashley Mallory weight E&M 177.6 [lb_av] Betty Mallory oxygen saturation, oximetry 98 % Betty Mallory respiratory rate E&M 20 /min Bettyspenser Mallory height E&M 63 [in_i] Betty Mallory Body Mass Index (Ratio) 31.35 kg/m2 Vikash Mata MD pulse rate 90 /min Betty Mallory blood pressure, diastolic 110 mm[Hg] ashley Mallory blood pressure, systolic 170 mm[Hg] She rrjavier Mallory blood pressure, cuff size regular ashley Mallory oxygen saturation, oximetry 100 % Betty Mallory weight E&M 177 [lb_av] Betty Mallory respiratory rate E&M 20 /min Betty Mallory height E&M 63 [in_i] Betty Mallory blood pressure, diastolic 85 mm[Hg] Karina Cardenas blood pressure, systolic 147 mm[Hg] Jazmine Cardenas pulse rate 78 /min Natanael loyd oxygen saturation, oximetry 99 % Natanael Cardenas respiratory rate E&M 16 /min Raul Cardenas Body Mass Index (Ratio) 36.95 kg/m2 Kenia Cardenas weight E&M 208.6 [lb_av] Natanael miller blood pressure, diastolic, left arm 88 mm [Hg] Chloe Murray blood pressure, systolic, left arm 149 mm [Hg] Chloe Murray blood pressure, diastolic, right arm 98 m m[Hg] Chloe Murray blood pressure, systolic, right arm 153 m m[Hg] Chloe Murray blood pressure, diastolic 88 mm[Hg] Dc bailee blood pressure, systolic 149 mm[Hg] Andria farris pulse rate 74 /min Chloe Murray oxygen saturation, oximetry 96 % Chloe Murray respiratory rate E&M 15 /min Chloe Murray Body Mass Index (Ratio) 38.08 kg/m2 Shruthi scott height E&M 63 [in_i] Chloe Murray weight E&M 215 [lb_av] Chloe Mariaann blood pressure, diastolic 79 mm[Hg] Wilder Birmingham RN blood pressure, systolic 124 mm[Hg] Romie Birmingham RN pulse rate 83 /min Romie Birmingham RN oxygen saturation, oximetry 100 % Romie Birmingham RN respiratory rate E&M 18 /min Romie cui RN weight E&M 189 [lb_av] Romie Birmingham RN ALLERGIES No Known Drug Allergies RESULTS Date Observation Value Provider Reference Range Interpretation Location 7 prothrombin time (patient) 10.7 s [facility] 9.0 - 11.5 7 international normalized ratio (INR) 1.0 [facility] 0.9 - 1.1 7 red blood cell distribution width, size density 54.8 fL [facility] - 7 immature granulocytes, percentage of total cells, blood 0.2 % [facility] - 7 nucleated red blood cells as percent of blood leukocytes 0.0 % [facility] - 7 red blood cell (erythrocyte) count, per high power field 0.0 10*3/UL [facility] - 7 eosinophils as percent of blood leukocytes 4.7 % [facility] - 7 neutrophils as percent of blood leukocytes 47.9 % [facility] - 7 Absolute Neutrophils 3.0 CELLS/UL [facility] 1.5 - 7.8 7 basophils as percent of blood leukocytes 1.1 % [facility] - 7 Absolute Basophils 0.1 CELLS/UL [facility] 0.0 - 0.2 7 monocytes as percent of blood leukocytes 7.1 % [facility] - 7 Absolute Monocytes 0.4 CELLS/UL [facility] 0.2 - 1.0 7 lymphocytes as percent of blood leukocytes 39.0 % [facility] - 7 Absolute Lymphocytes 2.4 CELLS/UL [facility] 0.9 - 3.9 7 mean platelet volume 11.2 (?) [facility] - 7 platelet count 390.0 THOUSAND/ UL [facility] 100.0 - 400.0 7 mean corpuscular hemoglobin concentration, RBC 29.8 G/DL [facility] 31.0 - 38.0 Low 7 mean corpuscular hemoglobin, RBC 23.2 pg [facility] 25.0 - 35.0 Low 7 mean corpuscular volume, RBC 77.9 fL [facility] 75.0 - 100.0 7 hematocrit, blood 35.2 % [facility] 35.0 - 55.0 7 hemoglobin, blood 10.5 g/dL [facility] 11.5 - 16.5 Low 7 erythrocyte count, whole blood 4.5 MILLION/U L [facility] 3.5 - 5.5 7 very low density lipoproteins 11.2 mg/dL [facility] 5.0 - 40.0 7 LDL/HDL (low-density lipoprotein/high-den sity lipoprotein) ratio 2.8 RATIO [facility] - 7 lipoprotein, beta, serum, point, quantitative, calculated 137.8 (?) [facility] 0.0 - 100.0 High 7 HDL cholesterol, serum 49.0 mg/dL [facility] 45.0 - 65.0 7 cholesterol, serum 198.0 mg/dL [facility] 0.0 - 200.0 7 triglyceride, serum, fasting 56.0 mg/dL [facility] 0.0 - 150.0 7 anion gap, serum 13.4 [facility] - 7 albumin/globulin ratio, serum 2.7 g/dL [facility] 1.1 - 2.5 High 7 globulin, serum 3.1 [facility] 2.3 - 3.8 7 urea nitrogen/creatinine ratio, serum 6.3 [facility] - 7 Estimated Glomerular Filtration Rate (calc) 83.6 (?) [facility] 59.0 - 7 chloride, serum 102.6 mmol/L [facility] 98.0 - 107.0 7 potassium, serum 4.1 mmol/L [facility] 3.5 - 5.1 7 sodium, serum 140.0 mmol/L [facility] 136.0 - 145.0 7 creatinine, serum 0.8 mg/dL [facility] 0.5 - 0.9 7 carbon dioxide, venous blood 24.0 mmol/L [facility] 22.0 - 29.0 7 albumin, serum 4.5 g/dL [facility] 3.5 - 5.2 7 calcium, serum 9.1 mg/dL [facility] 8.6 - 10.2 7 aspartate aminotransferase (SGOT), serum 13.0 1/L [facility] 0.0 - 32.0 7 alkaline phosphatase, serum 62.0 1/L [facility] 40.0 - 130.0 7 alanine aminotransferase (SGPT), serum 10.0 1/L [facility] 0.0 - 33.0 7 protein, total, serum 7.6 g/dL [facility] 6.6 - 8.7 7 bilirubin, serum, total 0.2 mg/dL [facility] 0.0 - 1.2 7 urea nitrogen, blood 5.0 mg/dL [facility] 6.0 - 20.0 Low 7 blood glucose, random 112.0 mg/dL [facility] 74.0 - 99.0 High 0 cholesterol/HDL ratio, serum, percent 3.4 (calc) [facility] < OR = 5.0 Normal 0 LDL cholesterol, serum 109 MG/DL (CALC) [facility] <130 Normal 0 HDL cholesterol, serum 48 mg/dL [facility] > OR = 46 Normal 0 cholesterol, serum 164 mg/dL [facility] 125-200 Normal 0 triglyceride, serum, fasting 35 mg/dL [facility] <150 Normal HISTORY OF MEDICATION USE Medication Status Instructions Dates Provider Indications Com ments amlodipine 5 mg tablet active To dale Mata MD atorvastatin 40 mg tablet active Johana Mata MD aspirin 81 mg tablet,chewable active TAKE 1 TABLET BY MOUTH EVERY DAY Johana Mata MD Toprol XL 25 mg tablet extended release 24 hr active TAKE 1 TABLET BY MOUTH AT BEDTIME Elva Akhtar RN amlodipine 10 mg tablet completed - Johana Mata MD olanzapine 10 mg tablet active Aftab Ortiz lorazepam 1 mg tablet completed - Aftab Ortiz hydroxyzine HCl 25 mg tablet completed - Aftab Ortiz lamotrigine 150 mg tablet completed - Aftab Ortiz hydrochlorothiazide 25 mg tablet completed - Aftab Ortiz losartan 100 mg tablet completed 1 tablet by mouth once a day - Aftab Ortiz FE TABS 325 (65 Fe) MG TBEC completed 1 tablet three times a day - Aftab Ortiz CYMBALTA 30 MG ORAL CAPSULE DELAYED RELEASE PARTICLES completed one tab daily - Chloe Murray SOCIAL HISTORY Date Observation Value Provider social history E&M Marital Statu s: Single L chaim with family/friends E thnicity: Smoking History: Prema douglass has never smoked. Aftabrylie Guerrerojose smoking status Never smoker Betty Mallory social history reviewed E&M revi ewed - no changes required Aftab Ortiz social history E&M Marital Statu s: Single L chaim with family/friends E thnicity: Smoking History: Prema douglass has never smoked. Aftab Ortiz smoking status Never smoker Betty Mallory social history reviewed E&M revi ewed - no changes required Aftab Ortiz social history reviewed E&M revi ewed - no changes required Moris Poole MD physical exercise, f requency, days per week no Natanael Cardenas alcohol use, average drinks per day social basis only Natanael Cardenas caffeine use, averag e drinks per day no Natanael Cardenas drug use none Natanaelcalvin loyd smoking status Never smoker Natanael Harper social history E&M Marital Statu s: Single L chaim with family/friends E thnicity: Smoking History: Prema douglass has never smoked. Moris Poole MD social history reviewed E&M revi ewed - no changes required Moris Poole MD physical exercise, f requency, days per week no Chloe Murray alcohol use, average drinks per day social basis only Chloe Murray caffeine use, averag e drinks per day no Chloe Murray drug use none Chloe Murray smoking status Never smoker Chloe Garcia calvin social history E&M Marital Statu s: Single L chaim with family/friends E thnicity: Mikel Link MD drug use none Mikel Randall social history reviewed E&M reviewed Mikel Link MD physical exercise, f requency, days per week no [facility] caffeine use, averag e drinks per day no [facility] alcohol use, average drinks per day social basis only [facility] smoking status Non-smoker [facility] MENTAL STATUS Date Observation Value Provider assessment of judgme nt and insight E&M Alert and oriented to time, place and person. Mood and affect are normal. Romie Birmingham RN FAMILY HISTORY Family Member Condition Mother Negative FH of Coron shailesh Artery Disease INSURANCE PROVIDERS Payer name Policy type / Coverage type Spencer red democrat [place] MEDICAID (2) Medicaid [id number] ADVANCE DIRECTIVES Name Date DISCUSSED - NO DECISION MADE TREATMENT PLAN Date Name Performer [id number],S, Aftab Ahmedza i [id number],S, Aftab Ahmedza i [id number],S, Aftab Ahmedza i [id number],S, Aftab Ahmedza i [id number],S, Aftab Ahmedza i [id number],S, Aftab Ahmedza i [id number],S, Aftab Ahmedza i [id number],S, Aftab Ahmedza i Cardiology Aftab Ahmedzai Cardiology Aftab Ahmedzai Cardiology Aftab Ahmedzai Cardiology Aftab Ahmedzai Cardiology Aftab Ahmedzai Cardiology Aftab Ahmedzai Cardiology Aftab Ahmedzai Cardiology Aftab Ahmedzai Cardiology:Still hav ing CP. Myoview scan showed small reversible inferoapical wall defect consistent with ischemia. Will schedule cardiac cath. Moris Poole MD Cardiology:This is a 40 years old female who presents with CHEST PAIN EVALUATION. The patient complains of chest pain at rest and chest pain with exercise. Location of pain is substernal. Pain radiates to none. Seven years, she had a negative echo and stress test. She's had chest pain for about 2-3 weeks. The pain feels like pressure. Will obtain stress myoview and echo. Moris Poole MD office visit: B P today: 124/79 Prior BP: / () Orders: E KG ([id number]) Mikel Link MD Date Name CT, Coronary Calcium Score Stress Routine PROTHROMBIN TIME WIT H INR LIPID PANEL CBC (INCLUDES DIFF/P LT) COMPREHENSIVE METABO LIC PANEL W/EGFR Cardiac Cath - Left - GC STR - Nuclear Complete Echo LIPID PANEL Stress Test - Adenos ine HISTORY OF PROCEDURES Procedure Date Procedure Name Provider Procedure Notes S tatus SNOMED-CT: [id number] Current Medications Documented Moris Poole MD completed Stress EKG Josh Villa MD complet ed Cardiolite, 2 units Moris Poole MD c ompleted SPECT Images Josh Villa MD compl eted SNOMED-CT: [id number] Current Medications Documented Moris Poole MD completed EKG Moris Poole MD completed JO ANN Link MD complete d
--- OUTSIDE RECORDS SUMMARY | 2025-01-18 16:50 | XMS_ITS | Continuity of Care Document ---
Author Organization [facility] Address [address] [place] [address] [place] [address] Phone Care Team Providers Care Continuing Education Instructor Name Role Phone Paniagua OD, Gio Unavailable Unavailable Procedures Procedure Date Eye Exam Established Pt Office/outpatient Visit, Est Office/outpatient Visit, New Advance Directives Directive Yes / No Effective Date File Name No Information Encounters Encounter Description Practice Location Reason(s) For Visit Diagnoses Date Provider Providers Copied on Encounter formerly [facility], [address] [place] [address] [address], [place], [place], [id number], tel:[phone] [facility] No Information Apr-0 1-200 9 Paniagua OD Gio. [address] [facility] , [address], [place], [place], [facility], . tel:[phone] Office/outpat ient Visit, Est formerly [facility], [address] [place] [address] [address], [place], [place], [id number], [place] tel:[phone] [facility] No Information February-1 8-200 7 Paniagua OD Gio. [address] [facility] [address], [address], [place], [address], [place]. tel:[phone] Office/outpat ient Visit, New formerly [facility], [address] [place] [address] [address], [place], [place], [id number], [place] tel:[phone] [facility] No Information February-0 9-200 7 Paniagua OD Gio. [address] , [address], [place], [address], [place]. tel:[phone] Family History Family Member Type Diagnosis Age At Onset No Information Payers Payer name Insurance type Covered republican ID Marly fournier(s) Medicaid [facility] [id number] Social History Type Description Quantity Date Captured Comments Sex Female Smoking Status No Information Chief Complaint And Reason For Visit No Information Reason For Referral Reason For Referral No Information History Of Present Illness Encounter Date Complaint History Of Prese nt Illness No Information Functional Status Date Functional Assessmen t No Information Instructions Date Instruction Additional Infor mation No Information Assessments Type Assessment Date No Information Patient Care Teams Name Effective Dates (start - stop) Status Members No Information
--- OUTSIDE RECORDS SUMMARY | 2025-01-18 16:50 | XMS_ITS | Clinical Summary ---
Author Organization [facility] Address [address] [place] [address] Care Team Providers Care Tobacco Drummer Name Role Phone Mohsen Fernandes MD Primary Care Provider Source Comments [facility],non-owned Affiliates and Associated Physician Practices is amultiple site organization consisting of ambulatory clinics and hospital sitesin [place], [place], [place] and [place]. This disclosure is being madepursuant to the Care Everywhere program and may not contain all information available regarding this patient. Last updated 18.[facility] Allergies No known active allergies Medications * Be aware that medications may not be up to date on this document. Alwaysverify current medications with the patient. venlafaxine XR 24hr (EFFEXOR XR) 150 MG capsule Take 150 mg by mouth once daily 0 01/05/2019 Active HYDROCHLOROTHIA ZIDE PO Active lamoTRIgine (LaMICtal) 100 MG tablet Take 1 (one) tablet by mouth at bedtime 60 tablet 12/16/2022 Active losartan (Cozaar) 25 MG tablet Take 1 (one) tablet by mouth once daily 30 tablet 12/16/2022 Active LORazepam (Ativan) 1 MG tablet Take 1 (one) tablet by mouth nightly as needed for Anxiety or Insomnia 4 tablet 12/16/2022 Active traZODone (Desyrel) 50 MG tablet Take 1 (one) tablet by mouth at bedtime 30 tablet 03/03/2023 Active Active Problems Problem Noted Date Diagnosed Date Abdominal bloating 04/17/2019 Diverticulosis of colon 04/17/2019 Lactose intolerance 04/17/2019 Social History Tobacco Use Types Packs/Day Years Used Date Smoking Tobacco: Never Smokeless Tobacco: Never Alcohol Use Standard Drinks/Week Comments Yes 0 (1 standard drink = 0.6 oz pur e alcohol) AUDIT-C Answer Date Recorded Q1: How often do you have a drink containing alcohol? Never 12/16/2022 Q2: How many drinks containi ng alcohol do you have on a typical day when you are drinking? Patient does not drink Q3: How often do you have si x or more drinks on one occasion? 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 Gender Identity Not on file Sexual Orientation Not on file Last Filed Vital Signs Vital Sign Reading Time Taken Comments Blood Pressure 151/93 03/03/2023 12:29 PM CDT RN aware Pulse 104 03/03/2023 12:29 PM CDT RN aware;RN took vitals Temperature 36.2 C (97.1 F) 03/03/2023 7:15 AM CDT Respiratory Rate 18 03/03/2023 7:15 AM CDT Oxygen Saturation 100% 03/03/2023 12: 29 PM CDT Inhaled Oxygen Concentration - - Weight 77.1 kg (170 lb) 03/03/2023 7:15 AM CDT Height 157.5 cm (5' 2 ) 03/03/2023 7:15 AM CDT Body Mass Index 31.09 03/03/2023 7:15 AM CDT Plan of Treatment Health Maintenance Due Date Last Done Comments COLOGUARD (AGES 45-75) - COL ON CA SCREENING 1973 COLON MONITORING 1973 COLONOSCOPY - COLON CA SCREENING 1973 CT COLONOGRAPHY - COLON CA SCREENING 1973 Colorectal Cancer Screening 1973 FIT - COLON CA SCREENING 1973 FLEX SIG - COLON CA SCREENING 1973 LIPID TESTING 1973 MAMMOGRAM 1973 PAP SMEAR 1973 HIV SCREENING 1988 HEPATITIS C SCREENING 04/06/1991 DTAP/TDAP/TD VACCINES (1 - Tdap) 1992 HEPATITIS B VACCINE (1 of 3 - 19+ 3-dose series) 1992 PNEUMOCOCCAL VACCINE 50+ (1 of 1 - PCV) 2023 ZOSTER VACCINE (1 of 2) 2023 COVID-19 VACCINE (1 - 2023-2 5 season) 2024 DEPRESSION SCREENING 10/07/2024 INFLUENZA VACCINE (Season Ended) 2025 SCREENING FOR DIABETES 03/03/2026 3, 12/16/2022 HIB VACCINE Aged Out No longer eligi ble based on patient's age to complete this topic HPV VACCINE Aged Out No longer eligi ble based on patient's age to complete this topic MENINGOCOCCAL (Group B) VACCINE SHARED DECISION-MAKING Aged Out No longer eligible based on patient's age to complete this topic MENINGOCOCCAL GROUPS A/C/Y/W VACCINE Aged Out No longer eligible b ased on patient's age to complete this topic Procedures Procedure Name Priority Date/Time Associated Diagnosis Comments COMPREHENSIVE METABOLIC PANEL STAT 03/03/2023 7:44 AM CDT from Last 3 Months or Most Recently Relevant to Health Maintenance Results * COMPREHENSIVE METABOLIC PANEL (03/03/2023 7:44 AM CDT) BUN 9 7 - 26 mg/dL 03/03/2023 8:59 AM [facility] Creatinine 0.78 0.56 - 0.96 mg/dL 03/03/2023 8:59 AM [facility] Sodium 138 136 - 145 mmol/L 03/03/2023 8:59 AM [facility] Potassium 3.5 3.5 - 4.5 mmol/L 03/03/2023 8:59 AM [facility] Chloride 102 98 - 107 mmol/L 03/03/2023 8:59 AM [facility] CO2 26 22 - 29 mmol/L 03/03/2023 8:59 AM [facility] Glucose 108 70 - 115 mg/dL 03/03/2023 8:59 AM [facility] Calcium 9.7 8.4 - 10.2 mg/dL 03/03/2023 8:59 AM [facility] Protein Total 6.7 6.0 - 8.3 g/dL 03/03/2023 8:59 AM [facility] Albumin 3.8 3.4 - 5.0 g/dL 03/03/2023 8:59 AM [facility] Bilirubin Total 0.3 0.2 - 1.2 mg/dL 03/03/2023 8:59 AM [facility] Alkaline Phosphatase 50 40 - 150 U/L 03/03/2023 8:59 AM [facility] ALT 7 5 - 55 U/L 03/03/2023 8:59 AM [facility] AST 12 5 - 34 U/L 03/03/2023 8:59 AM [facility] Anion Gap 14 8 - 18 03/03/2023 8:59 AM [facility] BUN/Creatinine Ratio 12 7 - 23 03/03/2023 8:59 AM [facility] Osmolality Calculated 285 270 - 300 mOsm/kg 03/03/2023 8:59 AM [facility] Albumin/Globulin Ratio 1.3 1.1 - 2.3 03/03/2023 8:59 AM [facility] eGFR by CKD-EPI >90 >=90 mL/min/1.7 3 m2 03/03/2023 8:59 AM [facility] Blood BLOOD SPECIMEN / Unknown Venipuncture / Unknown 03/03/2023 7:44 AM T 03/03/2023 8:03 AM [facility] us Merry Bustos MD LAB - CHEMISTRY ORDERABLES Fin al Result [facility] [address] [place] [address], [facility] [phone] from Last 3 Months or Most Recently Relevant to Health Maintenance Insurance [facility] Care Teams Tobacco Drummer Relationship Specialty Start Date End Date Mohsen Fernandes MD [address] [place], [place] [phone] PCP - General 04/17/19
--- OUTSIDE RECORDS SUMMARY | 2025-01-18 16:50 | XMS_ITS | Referral Summary ---
Author Organization [facility] Address [address] [place] [address] Care Team Providers Care Fire Controlman Name Role Phone Mohsen Fernandes MD Primary Care Provider Allergies No known active allergies Medications traZODone (DESYREL) 100 mg tablet Take 1 tablet (100 mg total) by mouth nightly 30 tablet 03/12/2023 Active Active Problems Problem Noted Date Diagnosed Date Depression 03/12/2023 Insomnia 03/12/2023 Social History Tobacco Use Types Packs/Day Years Used Date Smoking Tobacco: Never Smokeless Tobacco: Never Tobacco Cessation:Counseling Given: Not Answered Alcohol Use Standard Drinks/Week Comments Not Currently 0 (1 standard drink = 0.6 oz pur e alcohol) Personal Safety Answer Date Recorded Getting School Help Needed Not on file 03/15 Comments Unknown Sex and Gender Information Value Date Recorded Sex Assigned at Not on file 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 Gender Identity Not on file Sexual Orientation Not on file Last Filed Vital Signs Vital Sign Reading Time Taken Comments Blood Pressure 136/81 03/12/2023 10:00 PM CDT Pulse 87 03/12/2023 10:00 PM CDT Temperature 36.4 C (97.5 F) 03/12/2023 2:44 PM CDT Respiratory Rate 22 03/12/2023 2:44 PM CDT Oxygen Saturation 100% 03/12/2023 10:00 PM CDT Inhaled Oxygen Concentration - - Weight 74.4 kg (164 lb) 03/12/2023 2:44 PM CDT Height 160 cm (5' 3 ) 03/12/2023 2:44 PM CDT Body Mass Index 29.05 03/12/2023 2:44 PM CDT Plan of Treatment Not on file Procedures Procedure Name Priority Date/Time Associated Diagnosis Comments HEPATITIS C ANTIBODY Routine 05/04/2013 9:03 AM CDT from Last 3 Months or Most Recently Relevant to Health Maintenance Results * Hepatitis C antibody (05/04/2013 9:03 AM CDT) Hep C Ab NONREACT NONREACTIVE Comment: Siemens GarpunaurXP using CAN (chemiluminescent immunoassay) technology. NONREACTIVE: Antibodies to Hepatitis C not detected. This does not exclude early acute Hepatitis C infection, possibility of exposure to Hepatitis C, antibodies below detection limit, or to lack of antibody reactivity to the antigen used in this assay. EQUIVOCAL: Antibodies to Hepatitis C may or may not be present. Sample to be confirmed by real-time PCR method. REACTIVE: Antibodies to Hepatitis C detected. 05/04/2013 9:03 AM CDT 05/04/2013 9:07 AM CDT Dawson Horan MD LAB MICROBIOLOGY - GENERAL ORDERABLES Final Result [facility] HISTORICAL RESULTS from Last 3 Months or Most Recently Relevant to Health Maintenance Insurance [facility] Care Teams Fire Controlman Relationship Specialty [place] [address] [place] [id number] PCP - General Internal Medicine 04/16/23
--- OUTSIDE RECORDS SUMMARY | 2025-01-18 16:50 | XMS_ITS | Clinical Summary ---
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 Gender Identity Not on file Sexual Orientation Not on file Obstetrics History Last Filed Vital Signs Vital Sign Reading [...] 03/12/2023 2:44 PM CDT Plan of Treatment Health Maintenance Due Date Last Done Comments Breast Cancer Screening-Mammogram 1973 Cervical Cancer Screening 1973 Colon Cancer Screening-Colonoscopy 1973 Depression Screening 1973 DTaP/Tdap/Td Vaccine (1 - Tdap) 1984 Hepatitis B Screening 1991 Regular Well Visit/Exam 18-64 1991 Zoster Vaccine (1 of 2) 2023 Influenza Vaccine (#1) 2024 Hepatitis C Screening Completed 05/04/2013 Pneumococcal vaccine <65 Aged Out No longer eligible based on patient's age to complete this topic Procedures Procedure Name Priority Date/Time Associated Diagnosis Comments HEPATITIS C ANTIBODY Routine 05/04/2013 9:03 AM CDT from Last 3 Months or Most Recently Relevant to Health Maintenance Results * Hepatitis C antibody (05/04/2013 9:03 AM CDT) Hep C Ab NONREACT NONREACTIVE 05/04/2013 10:[address] [facility] HISTORICAL RESULTS Comment: Siemens CentaurXP using CAN (chemiluminescent immunoassay) technology. NONREACTIVE: Antibodies [...] 9:03 AM CDT 05/04/2013 9:07 AM CDT us Dawson Horan MD LAB MICROBIOLOGY - GENERAL ORDERABLES Final Result [facility] HISTORICAL RESULTS from Last 3 Months or Most Recently Relevant to Health Maintenance Insurance [facility] Member Subscriber Plan / Payer ( fective 2023-Present) Name:Matthieu Mccoyradha Gonzales Relation to Subscriber:Self Name:Linda Mccoy Janet Payer ID:[id number] (NAIC) Group ID:Not on file Type:MEDICAID RISK OTHER Address: ATTN: CLAIMS DEPT [address] [place] [phone] Care Teams Cork Slabs Sawyer Relationship Specialty Start Date End Date Mohsen Fernandes MD [address] [place], [place] [id number] PCP - General Internal Medicine 04/16/23
--- OUTSIDE RECORDS SUMMARY | 2025-01-18 16:50 | XMS_ITS ---
Author Organization [facility] Address [address] [place] [address] Care Team Providers Care Medical Screener Name Role Phone Lulu Bobby Primary Care Provider [phone] REASON FOR VISIT 2 Month Psych F/U & Med Refill Social History Sex Assigned At : Social History Observation Description Sex Assigned At Female Encounters Encounter Location Date Provider Diagnosis [address] [place] [address] 11/19/2024 Lulu Bobby Plan Of Treatment No Information Progress Notes * Matthieu SALCEDOBishnuB:1975 (49 yo F)Acc No.[id number]:11/19/2024 UNLOCKED PROGRESS NOTE Patient: Linda WILSON Provider: JOSIANE Milligan, CLARITY DEVELOPER, REGIONAL REFRIGERATED CDL TRUCK DRIVER-C :1975 A ge:49 Y S ex:Female Date:11/19/2024 [facility] Subjective: * Chief Complaints: * 1 . 2 Month Psych F/U & Med Refill. * Medical History: Objective: * Vitals: Assessment: Plan: * Treatment: * * Electronic signature of Edy Bobby , [id number] on 01/18/2025 at 04:50 PM CDT Sign off status: Pending * Provider: Prema Bobby MSN, CLARITY DEVELOPER, REGIONAL REFRIGERATED CDL TRUCK DRIVER-C Date: 0 11/19/2024 Generated for Deborah sharp/Aisha/Hermelinda on: 0 01/18/2025 04:50 PM CDT
--- OUTSIDE RECORDS SUMMARY | 2025-01-18 16:50 | XMS_ITS ---
Author Organization [facility] Address [address] [place] [address] Care Team Providers Care Rocket Engine Mechanic Name Role Phone Lulu Bobby Primary Care Provider REASON FOR VISIT 2 Month Psych F/U & Med Refill Social History Sex Assigned At : Social History Observation Description Sex Assigned At Female Encounters Encounter Location Date Provider Diagnosis [address] [place] [address] 11/23/2024 Lulu Bobby Plan Of Treatment No Information Progress Notes * Matthieu SALCEDOBishnuB:1975 (49 yo F)Acc No.[id number]:11/23/2024 UNLOCKED PROGRESS NOTE Patient: Linda WILSON Provider: JOSIANE Milligan, AUTO SERVICE ADVISOR, LEASE ATTENDANT-C :1975 A ge:49 Y S ex:Female Date:11/23/2024 [facility] Subjective: * Chief Complaints: * 1 . 2 Month Psych F/U & Med Refill. * Medical History: Objective: * Vitals: Assessment: Plan: * Treatment: * * Electronic signature of Edy Bobby , [id number] on 01/18/2025 at 04:50 PM CDT Sign off status: Pending * Provider: Prema Bobby MSN, AUTO SERVICE ADVISOR, LEASE ATTENDANT-C Date: 0 11/23/2024 Generated for Deborah sharp/Aisha/Hermelinda on: 0 01/18/2025 04:50 PM CDT
--- OUTSIDE RECORDS SUMMARY | 2025-01-18 16:51 | XMS_ITS ---
Author Organization [facility] Address [address] [place] [address] Care Team Providers Care Welding Technician Name Role Phone Lulu Bobby Primary Care Provider Allergies Allergen (clinical drug ingredient) Drug/Non Drug Allergy documented on EMR Reaction Allergy Type Onset Date Status No Known Drug Allergy Unknown Drug Allergy Active REASON FOR VISIT 2 Month Psych F/U & Med Refill Medications Medication SIG (Take, Route, Frequency, Duration) Notes Start Date End Date Status buPROPion HCl ER (XL) 150 MG 1 tablet in the morning Orally Once a day for 30 days Active Latuda 40 MG 1 tablet in the even ing with food Orally Once a day for 30 days Active amLODIPine Besylate 5 MG 1 tablet Orally Once a day Active Metoprolol Tartrate 25 MG 1 tablet with food Orally Twice a day Active Cholecalciferol 25 MCG (1000 UT) 1 capsule Orally Once a day for 30 days Active Auvelity 45-105 MG as directed Orally o nce per day for 3 days then increase to twice daily for 31 days 12/07/2024 Active Social History Sex Assigned At : Social History Observation Description Sex Assigned At Female Problems Problem Type SNOMED Code ICD Code Onset Dates Problem Status W/U Status Risk Notes Problem Major depressive disorder ([id number]) Major depressive disorder (F32.9) Active confirmed Vital Signs Weight 173.4 lbs 12/07/2024 Height 63 in 12/07/2024 BMI 30.71 kg/m2 12/07/2024 Blood pressure systolic 146 mm Hg 12/08/19 25 Blood pressure diastolic 86 mm Hg 03/03/2 025 Heart Rate 86 /min 12/07/2024 Oximetry 98 % 12/07/2024 Temperature 98.6 degrees Fahrenheit 12/08/19 25 Respiratory Rate 16 /min 12/07/2024 states did not take BP medic ations this morning Encounters Encounter Location Date Provider Diagnosis [facility] [place] [place] [address] 12/07/2024 Lulu Kanu Dysthymia F34.1 ; Major depressive disorder F32.9 and Anxiety disorder, unspecified F41.9 Assessments Encounter Date Diagnosis (ICD Code) Assessment Notes Treatment Notes Treatment Clinical Notes Section Notes 12/07/2024 Dysthymia (ICD-10 - F34.1) Client reports no efficacy with current medications and not able to take Latuda with 350 calories as she does not eat that much throughout the day at once, plan to D/C. Continue meds at this time as client does not have active current SI, stop once able to start Auvelity. Changing to Auvelity as client has tried SSRIs, SNRIs, NDRIs, mood stabilizers, and SGAs. Client has an extensive hx of past medication trials: see clinical noted for all medications noted in the past. Client does have hx of HTN, advised to monitor B/P as she has a cuff at home and to let PCP know we have started this medication. Take as Latuda prescribed. Reviewed purpose (mood stability), benefits, and risks - low blood pressure, metabolic syndrome with high cholesterol or high blood sugars, change in cardiac conduction, nausea, vomiting, temporary or permanent movement disorders, and akathisia. Clinical Notes: Adjuncts: Hx of Zyprexa with poor mood, SIHx of Abilify with shaking, possible TD and low efficacyHx of Vraylar, states it made her groggy often and aphasiaHx of Seroquel, fatigue Hx of Zyprexa with fatigueHx of lamotrigine at highest doses with no efficacy Hx of lithium with tremors Hx of fluoxetine at highest dose with no minimal efficacy Hx of Effexor and at high doses with minimal to no efficacy Hx of Lexapro, Paxil, Zoloft with no efficacy at high doses per reports. Hx of: Trintellix, Viibryd, and remeron: all with at least 1-2 months of taking and no efficacy noted per reports. 12/07/2024 Major depressive disorder (ICD-10 - F32.9) Discussed r/b/se. See below for further information. 12/07/2024 Anxiety disorder, unspecified (ICD-10 - F41.9) Encouraged thearpy. Client declines. 12/07/2024 Other Reasons, potential benefits, potential risks, interactions and side effects of all medications were discussed. The Patient/Guardian asked appropriate questions, appeared to understand the answers, and decided to accept the treatment and continue being followed. Alternatives and expected course without treatment were reviewed. The Patient/Guardian is aware of the need to contact the office or return for an earlier appointment if any problems or concerns arise. May also contact the 24-hour crisis hotline ([facility]), refer to the closest emergency room or call 911 if new symptoms arise of existing symptoms worsen. The Patient/Guardian is aware that this would apply to symptoms like: suicidal ideation, homicidal ideation, high risk behaviors, manic symptoms, psychotic symptoms, physical symptoms, or any other symptoms that may be dangerous to self or others. Greater than 50% of time spent on coordination and counseling where psychopharmacology as well as psychotherapeutic interventions were discussed along with review of treatments in the past. Education provided concerning need for adequate hydration. Patient/Guardian verbalized understanding of education, treatment plan and follow up. Plan Of Treatment Medication Medication Name Sig Start Date Stop Date Notes buPROPion HCl ER (XL) 150 MG 1 tablet in the morning Orally Once a day for 30 days Latuda 40 MG 1 tablet in the even ing with food Orally Once a day for 30 days Auvelity 45-105 MG as directed Orally o nce per day for 3 days then increase to twice daily for 31 days 12/07/2024 Treatment Notes Assessment Notes Dysthymia Client reports no efficacy with current medications and not able to take Latuda with 350 calories as she does not eat that much throughout the day at once, plan to D/C. Continue meds at this time as client does not have active current SI, stop once able to start Auvelity. Changing to Auvelity as client has tried SSRIs, SNRIs, NDRIs, mood stabilizers, and SGAs. Client has an extensive hx of past medication trials: see clinical noted for all medications noted in the past. Client does have hx of HTN, advised to monitor B/P as she has a cuff at home and to let PCP know we have started this medication. Take as Latuda prescribed. Reviewed purpose (mood stability), benefits, and risks - low blood pressure, metabolic syndrome with high cholesterol or high blood sugars, change in cardiac conduction, nausea, vomiting, temporary or permanent movement disorders, and akathisia. Major depressive disorder Discussed r/b/ se. See below for further information. Anxiety disorder, unspecified Encouraged thearpy. Client declines. Other Reasons, potential benefits, potential risks, interactions and side effects of all medications were discussed. The Patient/Guardian asked appropriate questions, appeared to understand the answers, and decided to accept the treatment and continue being followed. Alternatives and expected course without treatment were reviewed. The Patient/Guardian is aware of the need to contact the office or return for an earlier appointment if any problems or concerns arise. May also contact the 24-hour crisis hotline ([facility]), refer to the closest emergency room or call 911 if new symptoms arise of existing symptoms worsen. The Patient/Guardian is aware that this would apply to symptoms like: suicidal ideation, homicidal ideation, high risk behaviors, manic symptoms, psychotic symptoms, physical symptoms, or any other symptoms that may be dangerous to self or others. Greater than 50% of time spent on coordination and counseling where psychopharmacology as well as psychotherapeutic interventions were discussed along with review of treatments in the past. Education provided concerning need for adequate hydration. Patient/Guardian verbalized understanding of education, treatment plan and follow up. Next Appt Details Follow Up: 4 Weeks, Reason: Psych F/U, may be telehealth Progress Notes * Leslie SALCEDOB:1975 (49 yo F)Acc No.[id number]:12/07/2024 Patient: Mark WILSONesha Provider: Prema Bobby, MSN, WEIGHT CLERK, CERTIFIED REGISTERED NURSE PRACTITIONER-C :1975 A ge:49 Y S ex:Female Date:12/07/2024 [id number] Check In:10:09 AM COMMUNITY ORGANIZATION DIRECTOR Subjective: * Chief Complaints: * 2 Month Psych F/U & Med Refill * HPI: S creening: [facility] Suicide Severity Rating Scale (LF) D o you want to initiate with S creener form, I nterpretation: M oderate Risk, 6 . Suicide Behavior Question: Have you ever done anything,started to do anything, or prepared to end your life? N o, 2 . Suicidal Thoughts: Have you actually had any thoughts of killing yourself? N o, 1 . Wish to be : Have you wished you were or wished you could go to sleep and not wake up??Yes. I nterim History: Emergency room visit N o. W as hospitalized N o.? D epression Screening: PHQ-9 L ittle interest or pleasure in doing things N early every day, F eeling down, depressed, or hopeless N early every day, T rouble falling or staying asleep, or sleeping too much S everal days, F eeling tired or having little energy S everal days, P oor appetite or overeating S everal days, F eeling bad about yourself or that you are a failure, or have let yourself or your family down N early every day, Trouble concentrating on things, such as reading the newspaper or watching television N early every day, M oving or speaking so slowly that other people could have noticed; or the opposite, being so fidgety or restless that you have been moving around a lot more than usual N ot at all,?Thoughts that you would be better off or of hurting yourself in some way N early every day (Consider Suicide Assessment Risk), T otal Score 1 8, I nterpretation M oderately Severe Depression. I ntervention D epression Screening Findings P ositive, F ollow-Up for Depression N o Referral necessary, patient involved in behavioral health treatment ..? C SSRS Interpretation and Follow Up Plan: CSSRS Interpretation and Follow Up Plan C SSRS Screen documented using JUDE Y es, R isk Disposition from SF M oderate - Follow Up Plan required, F ollow Up Plan M oderate/High: Patient risk further assessed by Behavioral Health WEIGHT CLERK or Clinician, no warm hand off needed at this time Client talked with this provider. Denies plan or intent. Denies crisis intervention. Verified that client has access to crisis phone numbers.. P sychiatric Assessment - Current Symptoms: How ct. doing today? Client is a 49 yo F in office today reporting not doing well. States she has been just down and out. Goals? --- To feel better Coping strategies? --- I just stay in my room really. Social Activities?-- Talks with mom some. Reports I talk with a little family, but mainly stay in my room. Reports not working at this time. Drugs/ETOH? Denies Therapy?-- Denies Medications effective.--- No Medication Adherence--- I know I am supposed to take the Latuda with food, but my appetite is a problem. Side effects.--- Denies Sleep-- Broken, but I do sleep. Energy: Not that great, I just stay in my room. Appetite- Not good. States this is low, once a day at times. Depression--- 07/16 Reports feeling hopeless and helpless. Anxiety--- 03/16 Anger/Irritability--- Yes Hallucinations---Paranoia--- Denies Suicidal ideation--- Reports passive thoughts. States these are pretty common, denies plan or intent. Homicidal ideation--- Denies Medical concerns - Denies. A bnormal Involuntary Movement Scale: Facial and Oral Movements M uscles of Facial Expression?0- None, L ips and Perioral Area 0 - None, J aw 0 - None, T ongue 1 - Minimal. E xtremity Movements U pper (arms, wrists, hands, fingers) 1 - Minimal, L ower (legs, knees, ankles, toes) 0 - None. T runk Movements N ilan, Shoulders and hips 0 - None. G lobal Judgement S everity of abnormal movements overall 1 - Minimal, I ncapacitation due to abnormal movements 0 - None, P atient's awareness of abnormal movements 0- No Awareness. D ental Status C urrent problems with teeth and/or dentures N o, A re dentures usually worn? N o, E ndentia N o, D o movements disappear with sleep??No. * ROS: P sych ROS: Constitutional D enies. E yes D enies. E ars/Nose/Mouth/Throat D enies. R espiratory D enies. A llergic/Immunologic D enies.?Cardiovascular R eports, H TN. G I D enies. M usculoskeletal D enies. N eurological D enies. P sych reports high depression and moderate anxiety. . * Medical History: * Surgical History: c section x 3 * Hospitalization/Major Diagno stic Procedure: c hild x3 * Family History: F ather: alive, diabetes mellitus. M other: alive, hypertension. 2 brother(s) , 1 sister(s) - healthy. 1 son(s) , 2 daughter(s) - healthy. . * Social History: P rimary Social History: L iving Arrangement L iving Arrangement: I ndependent Living, I s this a supportive environment? Y es. A lcohol Use A lcohol Use Frequency: M onthly or less. I llicit Substance Usage I llicit Substance Usage: N o. E mployment Status E mployment Status: U nemployed. M iscellaneous: M ethod of learning P referred method of learning: D emonstration. * Medications: T akingMetoprolol Tartrate 25 MG Tablet 1 tablet with food Orally Twice a day amLODIPine Besylate 5 MG Tablet 1 tablet Orally Once a day Cholecalciferol 25 MCG (1000 UT) Capsule 1 capsule Orally Once a day Latuda 40 MG Tablet 1 tablet in the evening with food Orally Once a day buPROPion HCl ER (XL) 150 MG Tablet Extended Release 24 Hour 1 tablet in the morning Orally Once a day Medication List reviewed and reconciled with the patientTaking Metoprolol Tartrate 25 MG Tablet 1 tablet with food Orally Twice a day Taking amLODIPine Besylate 5 MG Tablet 1 tablet Orally Once a day Taking Cholecalciferol 25 MCG (1000 UT) Capsule 1 capsule Orally Once a day Taking Latuda 40 MG Tablet 1 tablet in the evening with food Orally Once a day Taking buPROPion HCl ER (XL) 150 MG Tablet Extended Release 24 Hour 1 tablet in the morning Orally Once a day Medication List reviewed and reconciled with the patient * Allergies: N o Known Drug Allergyno[Allergies Verified] Objective: * Vitals: I nitials: rt, Wt:173.4, Ht: 63, BMI:30.71, BP:146/86, HR:86, Oxygen sat %:98, Temp:98.6, RR:16, LMP: NA, Pain scale:0. states did not take BP medications this morning. * Examination: M ental Status Exam: SENSORIUM AND COGNITION Alert, Oriented to Person, Oriented to Place, Oriented to Time, Oriented to Situation. ATTENTION AND CONCENTRATION No deficits. APPEARANCE A ppropriate, Neatly dressed and groomed. ATTITUDE AND BEHAVIOR Cooperative, Receptive. MEMORY Immediate, Recent, Remote. EYE CONTACT L imited. AFFECT S ad. MOOD D ysthymic, depressed. SPEECH QUANTITY Appropriate. SPEECH QUALITY Appropriate volume. THOUGHT PROCESS Coherent and goal directed. THOUGHT CONTENT Appropriate - WNL. MOTOR ACTIVITY G oal directed, Normal gait. SUICIDAL IDEATION A dmits to passive suicidal ideation; denies plan or intent. HOMICIDAL IDEATION Denies homicidal ideation. HALLUCINATIONS Denies hallucinations. INSIGHT F air. JUDGMENT F air. FUND OF KNOWLEDGE F air. ABILITY TO PARTICIPATE IN TREATMENT M oderate. WILLINGNESS TO PARTICIPATE IN TREATMENT M oderate. ? Assessment: * Assessment: 1. M ajor depressive disorder - F32.9 (Primary) 2 . D ysthymia - F34.1 3 . A nxiety disorder, unspecified - F41.9 Plan: * Treatment: 2. D ysthymia Continue Latuda Tablet, 40 MG, 1 tablet in the evening with food, Orally, Once a day, 30 days, 30, Refills 0; C ontinue buPROPion HCl ER (XL) Tablet Extended Release 24 Hour, 150 MG, 1 tablet in the morning, Orally, Once a day, 30 days, 30, Refills 0. Notes: Client reports no efficacy with current medications and not able to take Latuda with 350 calories as she does not eat that much throughout the day at once, plan to D/C. Continue meds at this time as client does not have active current SI, stop once able to start Auvelity. Changing to Auvelity as client has tried SSRIs, SNRIs, NDRIs, mood stabilizers, and SGAs. Client has an extensive hx of past medication trials: see clinical noted for all medications noted in the past. Client does have hx of HTN, advised to monitor B/P as she has a cuff at home and to let PCP know we have started this medication. Take as Latuda prescribed. Reviewed purpose (mood stability), benefits, and risks - low blood pressure, metabolic syndrome with high cholesterol or high blood sugars, change in cardiac conduction, nausea, vomiting, temporary or permanent movement disorders, and akathisia. Clinical Notes: Clinical Notes: Adjuncts: Hx of Zyprexa with poor mood, SIHx of Abilify with shaking, possible TD and low efficacyHx of Vraylar, states it made her groggy often and aphasiaHx of Seroquel, fatigue Hx of Zyprexa with fatigueHx of lamotrigine at highest doses with no efficacy Hx of lithium with tremors Hx of fluoxetine at highest dose with no minimal efficacy Hx of Effexor and at high doses with minimal to no efficacy Hx of Lexapro, Paxil, Zoloft with no efficacy at high doses per reports. Hx of: Trintellix, Viibryd, and remeron: all with at least 1-2 months of taking and no efficacy noted per reports. 3. A nxiety disorder, unspecified Notes: Encouraged thearpy. Client declines. 4. O thers Notes: Reasons, potential benefits, potential risks, interactions and side effects of all medications were discussed. The Patient/Guardian asked appropriate questions, appeared to understand the answers, and decided to accept the treatment and continue being followed. Alternatives and expected course without treatment were reviewed. The Patient/Guardian is aware of the need to contact the office or return for an earlier appointment if any problems or concerns arise. May also contact the 24-hour crisis hotline ([facility]), refer to the closest emergency room or call 911 if new symptoms arise of existing symptoms worsen. The Patient/Guardian is aware that this would apply to symptoms like: suicidal ideation, homicidal ideation, high risk behaviors, manic symptoms, psychotic symptoms, physical symptoms, or any other symptoms that may be dangerous to self or others. Greater than 50% of time spent on coordination and counseling where psychopharmacology as well as psychotherapeutic interventions were discussed along with review of treatments in the past. Education provided concerning need for adequate hydration. Patient/Guardian verbalized understanding of education, treatment plan and follow up. * Procedure Codes: * Follow Up: 4 Weeks (Reason: Psych F/U, may be telehealth) * * UNITY ORGANIZATION DIRECTOR Sign off status: Completed true * Provider: Prema Bobby, MSN, WEIGHT CLERK, CERTIFIED REGISTERED NURSE PRACTITIONER-C Date: 0 12/07/2024 Generated for Deborah sharp/Aisha/Hermelinda on: 0 01/18/2025 04:50 PM CDT History and Physical Notes * HPI (History of Present Illness) Category Sub-Category Detail Notes Category Not es Interim History Was hospitalized No Emergency room visit No Depression Screening PHQ-9 Little inte rest or pleasure in doing things: Nearly every day Feeling down, depressed, or hopeless: Ne john every day Trouble falling or staying asleep, or sl eeping too much: Several days Feeling tired or having little energy: S everal days Poor appetite or overeating: Several day s Feeling bad about yourself o r that you are a failure, or have let yourself or your family down: Nearly every day Trouble concentrating on thi ngs, such as reading the newspaper or watching television: Nearly every day Moving or speaking so slowly that other people could have noticed; or the opposite, being so fidgety or restless that you have been moving around a lot more than usual: Not at all Thoughts that you would be b shahram off or of hurting yourself in some way: Nearly every day (Consider Suicide Assessment Risk) Total Score: 18 Interpretation: Moderately Severe Depres yamini Intervention Depression Screening Findings: P ositive Follow-Up for Depression: No Referral necessary, patient involved in behavioral health treatment . Abnormal Involuntary Movement Scale Facial and Oral Movements Muscles of Facial Expression: 0- None Lips and Perioral Area: 0- None Jaw: 0- None Tongue: 1- Minimal Extremity Movements Upper (arms, wrists, hands, fingers): 1- Minimal Lower (legs, knees, ankles, toes): 0- No ne Trunk Movements Neck, Shoulders and hips: 0- Non e Global Judgement Severity of abnormal movements overall: 1- Minimal Incapacitation due to abnormal movements : 0- None Patient's awareness of abnormal movement s: 0- No Awareness Dental Status Current problems with teeth and/ or dentures: No Are dentures usually worn?: No Endentia: No Do movements disappear with sleep?: No Subjective Experience Psychiatric Assessment - Current Symptoms How ct. doing today? Client is a 49 yo F in office today reporting not doing well. States she has been just down and out. Goals? --- To feel better Coping strategies? --- I just stay in my room really. Social Activities?-- Talks with mom some. Reports I talk with a little family, but mainly stay in my room. Reports not working at this time. Drugs/ETOH? Denies Therapy?-- Denies Medications effective.--- No Medication Adherence--- I know I am supposed to take the Latuda with food, but my appetite is a problem. Side effects.--- Denies Sleep-- Broken, but I do sleep. Energy: Not that great, I just stay in my room. Appetite- Not good. States this is low, once a day at times. Depression--- 07/16 Reports feeling hopeless and helpless. Anxiety--- 03/16 Anger/Irritability--- Yes Hallucinations---Paranoia--- Denies Suicidal ideation--- Reports passive thoughts. States these are pretty common, denies plan or intent. Homicidal ideation--- Denies Medical concerns - Denies Screening [facility] Suicide Severity Rating Scale (LF) Do you want to initiate with: Screener form Interpretation:: Moderate Risk 6. Suicide Behavior Question: Have you ever done anything,started to do anything, or prepared to end your life?: No 2. Suicidal Thoughts: Have you actually had any thoughts of killing yourself?: No 1. Wish to be : Have you wished you were or wished you could go to sleep and not wake up?: Yes CSSRS Interpretation and Follow Up Plan CSSRS Interpretation and Follow Up Plan CSSRS Screen documented using SF: Yes Risk Disposition from SF: Mo derate - Follow Up Plan required Follow Up Plan: Moderate/Hig h: Patient risk further assessed by Behavioral Health WEIGHT CLERK or Clinician, no warm hand off needed at this time Client talked with this provider. Denies plan or intent. Denies crisis intervention. Verified that client has access to crisis phone numbers. Examination Category Sub-Category Detail Notes Category Not es Mental Status Exam SENSORIUM AND COGNITION Alert , Oriented to Person, Oriented to Place, Oriented to Time, Oriented to Situation ATTENTION AND CONCENTRATION No deficits APPEARANCE Appropriate, Neatly dressed and groomed ATTITUDE AND BEHAVIOR Cooperative, Flaker Operator tive MEMORY Immediate, Recent, R emote EYE CONTACT Limited AFFECT Sad MOOD Dysthymic, depressed SPEECH QUANTITY Appropriate SPEECH QUALITY Appropriate volume THOUGHT PROCESS Coherent and goal di rected THOUGHT CONTENT Appropriate - WNL MOTOR ACTIVITY Goal directed, Maritza l gait SUICIDAL IDEATION Admits to passive mclean icidal ideation; denies plan or intent HOMICIDAL IDEATION Denies homicidal yolande ation HALLUCINATIONS Denies hallucination s INSIGHT Fair JUDGMENT Fair FUND OF KNOWLEDGE Fair ABILITY TO PARTICIPATE IN TREATMENT Mode rate WILLINGNESS TO PARTICIPATE IN TREATMENT Moderate
--- OUTSIDE RECORDS SUMMARY | 2025-01-18 16:51 | XMS_ITS | Patient Health Record ---
Author Organization [facility] Address [address] [place] [address] Care Team Providers Care Cable Worker Helper Name Role Phone Lulu Bobby Primary Care Provider DillonPat Unavailable [phone] Maggy Yu Unavailable [phone] Allergies Allergen (clinical drug ingredient) Drug/Non Drug Allergy documented on EMR Reaction Allergy Type Onset Date Status No Known Drug Allergy Unknown Drug Allergy Active Reason For Referral No Information Medications Medication SIG (Take, Route, Frequency, Duration) [...] with food Orally Twice a day Active Auvelity 45-105 MG as directed Orally o nce per day for 3 days then increase to twice daily for 31 days 12/07/2024 Active Cholecalciferol 25 MCG (1000 UT) 1 capsule Orally Once a day for 30 days Active Social History Sex Assigned At : Social History Observation Description Sex Assigned At Female Problems Problem Type SNOMED Code ICD Code Onset Dates Problem Status W/U Status Risk Notes Problem Anxiety disorder (236587678) Anxiety disorder, unspecified (F41.9) Active confirmed Problem Major depressive disorder (756891450) Major depressive disorder (F32.9) Active confirmed Problem Dysthymia (84517756) Dysthymia (F34.1) Active confirmed Vital Signs Heart Rate 86 /min 12/07/2024 states did not take BP medications this morning Temperature 98.6 degrees Fahrenheit 12/07/2024 stat es did not take BP medications this morning Respiratory Rate 16 /min 12/07/2024 states did not take BP medications this morning Blood pressure diastolic 86 mm Hg 12/07/2024 sta chadd did not take BP medications this morning Oximetry 98 % 12/07/2024 states did not take BP medications this morning Height 63 in 12/07/2024 states did not take BP medications this morning Blood pressure systolic 146 mm Hg 12/07/2024 stat es did not take BP medications this morning Weight 173.4 lbs 12/07/2024 states did not take BP medications this morning BMI 30.71 kg/m2 12/07/2024 states did not take BP medications this morning Encounters Encounter Location Date Provider Diagnosis [address] [place] [address] 04/03/2024 Pat Dillon Anxiety disorder, unspecified F41.9 and Dysthymia F34.[address] [address] 06/24/2024 Lulu Bobby Anxiety disorder, unspecified F41.9 and Dysthymia F34.[address] [address] 08/12/2024 Lulu Bobby Anxiety disorder, unspecified F41.9 and Dysthymia F34.[address] [address] 09/16/2024 Lulu Bobby Anxiety disorder, unspecified F41.9 and Dysthymia F34.[address] [address] 12/07/2024 Lulu Bobby Dysthymia F34.1 ; Major depressive disorder F32.9 and Anxiety disorder, unspecified F41.[address] [address] 02/24/2024 Lulu Bobby Encounter for screening for malignant neoplasm of cervix Z12.4 Assessments Encounter Date Diagnosis (ICD Code) Assessment Notes Treatment Notes Treatment Clinical Notes Section Notes 02/24/2024 Encounter for screening for malignant neoplasm of cervix (ICD-10 - Z12.4) Patient Educated with: Learning about Cervical Cancer Screenings.pdf (Learning about Cervical Cancer Screenings.pdf) 04/03/2024 Anxiety disorder, unspecified (ICD-10 - F41.9) 06/24/2024 Anxiety disorder, unspecified (ICD-10 - F41.9) 08/12/2024 Anxiety disorder, unspecified (ICD-10 - F41.9) Encouraged thearpy. Client declines. 09/16/2024 Anxiety disorder, unspecified (ICD-10 - F41.9) Encouraged thearpy. Client declines. 09/16/2024 Dysthymia (ICD-10 - F34.1) Client does have hx of HTN, advised to monitor B/P as she has a cuff at home and to let PCP know we have started this medication. Reports she has been on it in the past and does not remember how it worked for her. Starting for depression, low interest, low motivation, poor concentration. Adult ADHD Screener positive, may look to other options, but keeping HTN in mind as well. Discussed importance of taking Latuda with food, at least 250 calories. Take as Latuda prescribed. Reviewed purpose (mood stability), benefits, and risks - low blood pressure, metabolic syndrome with high cholesterol or high blood sugars, change in cardiac conduction, nausea, vomiting, temporary or permanent movement disorders, and akathisia. Clinical Notes: Adjuncts: Hx of Zyprexa with poor mood, SIHx of Abilify with shaking, possible TD and low efficacyHx of Vraylar, states it made her groggy oftenHx of Seroquel, fatigueHx of lamotrigine at higher doses with no efficacy Hx of lithium with tremors, was also taking Abilify at the time. Antidepressant s: Hx of Celexa, Cymbalta, Lexapro, paxil, Pristiq, Prozac, venlafaxine, Zoloft, Trintellix, viibryd, Remeron, Wellbutrin?; all with poor efficacy. 12/07/2024 Major depressive disorder (ICD-10 - F32.9) Discussed r/b/se. See below for further information. 12/07/2024 Dysthymia (ICD-10 - F34.1) Client reports [...] and no efficacy noted per reports. 12/07/2024 Anxiety disorder, unspecified (ICD-10 - F41.9) Encouraged thearpy. Client declines. 08/12/2024 Dysthymia (ICD-10 - F34.1) Clinical Notes: Adjuncts: Hx of Zyprexa with poor mood, SIHx of Abilify with shaking, possible TD and low efficacyHx of Vraylar, states it made her groggy oftenHx of Seroquel, fatigueHx of lamotrigine at higher doses with no efficacy Hx of lithium with tremors, was also taking Abilify at the time. Antidepressant s: Hx of Celexa, Cymbalta, Lexapro, paxil, Pristiq, Prozac, venlafaxine, Zoloft, Trintellix, viibryd, Remeron, Wellbutrin; all with poor efficacy. 06/24/2024 Dysthymia (ICD-10 - F34.1) Continue Latuda. Client had not been taking, when she was taking, was not taking consistently- discussed importance of this with client and need to take with food. Discussed SI- client denies plan or intent, given crisis numbers. Encouraged therapy. 04/03/2024 Dysthymia (ICD-10 - F34.1) Stop Fluoxetine and caplyta- ineffective and had already stopped. start Latuda to help with low moods. Referred to HN with warm hand off. May self-administer medications or be administered own oral medications per [facility] protocols. Provided informed consent with understanding of side effects, adverse effects, risks and benefits as well as alternative treatments as previously discussed and with the above recommended medications & other aspects of the treatment program. Agrees to return sooner if symptoms worsen or suicidal or homicidal ideations occur. 06/24/2024 Other Reasons, potential benefits, potential risks, interactions [...] May also contact the 24-hour crisis hotline ([facility]), refer to the closest emergency [...] of education, treatment plan and follow up. This session was completed telephonically with client/parental/guard mitra consent: Unable to determine movement status, assess appearance, affect, AIMS, or vital signs. 08/12/2024 Other Reasons, potential benefits, potential risks, interactions [...] May also contact the 24-hour crisis hotline ([facility]), refer to the closest emergency [...] of education, treatment plan and follow up. This session was completed telephonically with client/parental/guard mitra consent: Unable to determine movement status, assess appearance, affect, AIMS, or vital signs. 09/16/2024 Other Reasons, potential benefits, potential risks, interactions [...] May also contact the 24-hour crisis hotline ([facility]), refer to the closest emergency [...] of education, treatment plan and follow up. This session was completed telephonically with client/parental/guard mitra consent: Unable to determine movement status, assess appearance, affect, AIMS, or vital signs. 12/07/2024 Other Reasons, potential benefits, potential risks, [...] May also contact the 24-hour crisis hotline ([facility]), refer to the closest emergency [...] plan and follow up. Plan Of Treatment No Information Insurance Providers Payer Name Payer Address Payer Phone Subscriber Number Group Number Insured Name Patient Relationship to Insured Coverage Start Date Coverage End Date [facility] Attn Claims Department [address] [place] [address] [phone] [id number] Linda Salcedo Self - patient is the insured 3 [facility] Attn Claims Department [address] [place] [address] [phone] [id number] Linda Salcedo Self - patient is the insured 3 Medical (General) History Medical History History ICD Code Hypertension Surgical History Surgery Date(Month/Year) c section x 3 Hospitalization History Reason Date(Month/Year) child x3
[2025-01-18 17:44] LABS: Basophils Absolute Auto 0.1 K/mm3 (0.0-0.1); Basophils Percent Auto 1.3 % (0.2-1.2); Eosinophils Absolute Auto 0.2 K/mm3 (0-0.3); Eosinophils Percent Auto 2.6 % (0-4.4); Hematocrit 37.2 % (37.0-47.0); Hemoglobin 11.9 g/dL (12.0-15.0); Immature Granulocyte Absolute 0.01 K/mm3 (0.00-0.031); Immature Granulocyte Percent A 0.2 % (0-0.5); Lymphocytes Absolute Auto 2.89 K/mm3 (0.9-3.2); Lymphocytes Percent Auto 46.3 % (18.3-44.2); Mean Corpuscular Hemoglobin 30.4 pg (26-34); Mean Corpuscular Volume 94.9 fl (80-100); Mean Platelet Volume 10.8 fl (7.4-10.4); Monocytes Absolute Auto 0.6 K/mm3 (0.1-0.6); Monocytes Percent Auto 10.3 % (2.6-8.5); Neutrophils Absolute Auto 2.5 K/mm3 (1.3-6.7); Neutrophils Percent Auto 39.3 % (45.5-73.1); Platelet Count Result 258 k/mm3 (150-375); Red Blood Count 3.92 M/mm3 (4.2-5.4); White Blood Count 6.2 K/mm3 (4.5-10.0)
[2025-01-18 17:54] LABS: Alanine Aminotransferase 13 U/L (6-35); Alkaline Phosphatase 66 U/L (38-126); Anion Gap 7 mmol/L (4-12); Aspartate Amino Transferase 18 U/L (14-36); Bilirubin,Total 0.3 mg/dL (0.2-1.3); Blood Urea Nitrogen 10 mg/dL (7-17); Calcium 8.9 mg/dL (8.4-10.2); Carbon Dioxide 31 mmol/L (22-30); Chloride 99 mmol/L (98-107); Estimated CRCL calculation 68 ml/min; Estimated Glomerular Filt Rate > 60; Glucose 81 mg/dL (65-110); Lipase 39 U/L (23-300); Potassium 3.3 mmol/L (3.4-5.0); Prothrombin Time 13.5 Seconds (11.1-14.7); Sodium 137 mmol/L (137-145)
[2025-01-18 17:55] LABS: Partial Thromboplastin Time 26.6 Seconds (22.3-36.8)
[2025-01-18 18:06] LABS: Troponin I < 0.012 ng/mL (0.000-0.034)
--- OUTSIDE RECORDS SUMMARY | 2025-01-18 18:12 | XMS_ITS | Referral Summary ---
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 NONREACTIVE: Antibodies [...] LAB MICROBIOLOGY - GENERAL ORDERABLES Final Result [facility] HISTORICAL RESULTS from Last 3 Months or Most Recently Relevant to Health Maintenance Insurance [facility] Care Teams Budget Specialist Relationship Specialty [place] [address] [place] [phone] PCP - General Internal Medicine 04/16/23
--- OUTSIDE RECORDS SUMMARY | 2025-01-18 18:12 | XMS_ITS | Clinical Summary ---
Author Organization [email or web address] Address [address] [place] [address] Care Team Providers Care Hydrometer Tester Name Role Phone Mohsen Fernandes MD Primary Care Provider Source Comments [email or web address],non-owned Affiliates and Associated Physician Practices is amultiple site organization consisting of ambulatory clinics and hospital sitesin [place], [place], [place] and [place]. This disclosure is being madepursuant to the Care Everywhere program and may not contain all information available regarding this patient. 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 Gender Identity Not on file Sexual Orientation [...] 7 - 26 mg/dL 03/03/2023 8:59 AM [facility] Creatinine 0.78 0.56 - 0.96 mg/dL 03/03/2023 8:59 AM [facility] Sodium 138 136 - 145 mmol/L 03/03/2023 8:59 AM [facility] Potassium 3.5 3.5 - 4.5 mmol/L 03/03/2023 8:59 AM [facility] Chloride 102 98 - 107 mmol/L 03/03/2023 8:59 AM [facility] CO2 26 22 - 29 mmol/L 03/03/2023 8:59 AM [facility] Glucose 108 70 - 115 mg/dL 03/03/2023 8:59 AM [facility] Calcium 9.7 8.4 - 10.2 mg/dL 03/03/2023 8:59 AM [facility] Protein Total 6.7 6.0 - 8.3 g/dL 03/03/2023 8:59 AM [facility] Albumin 3.8 3.4 - 5.0 g/dL 03/03/2023 8:59 AM [facility] Bilirubin Total 0.3 0.2 - 1.2 mg/dL 03/03/2023 8:59 AM [facility] Alkaline Phosphatase 50 40 - 150 U/L 03/03/2023 8:59 AM [facility] ALT 7 5 - 55 U/L 03/03/2023 8:59 AM [facility] AST 12 5 - 34 U/L 03/03/2023 8:59 AM [facility] Anion Gap 14 8 - 18 03/03/2023 8:59 AM [facility] BUN/Creatinine Ratio 12 7 - 23 03/03/2023 8:59 AM [facility] Osmolality Calculated 285 270 - 300 mOsm/kg 03/03/2023 8:59 AM [facility] Albumin/Globulin Ratio 1.3 1.1 - 2.3 03/03/2023 8:59 AM [facility] eGFR by CKD-EPI >90 >=90 mL/min/1.7 3 m2 03/03/2023 8:59 AM [facility] Blood BLOOD SPECIMEN / Unknown Venipuncture / Unknown 03/03/2023 7:44 AM T 03/03/2023 8:03 AM [facility] us Merry Bustos MD LAB - CHEMISTRY ORDERABLES Fin al Result [facility] [address] [place] [address], [facility] [phone] from Last 3 Months or Most Recently Relevant to Health Maintenance Insurance [facility] Care Teams Hydrometer Tester Relationship Specialty Start Date End Date Mohsen Fernandes MD [address] [place], [place] [phone] PCP - General 04/17/19
--- OUTSIDE RECORDS SUMMARY | 2025-01-18 18:12 | XMS_ITS | Clinical Summary ---
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 Gender Identity Not on file Sexual Orientation [...] Vaccine (1 of 2) 2023 Influenza Vaccine (Season Ended) 2025 Hepatitis C Screening Completed 05/04/2013 Pneumococcal vaccine [...] Ab NONREACT NONREACTIVE 05/04/2013 10:59 AM CDT [facility] HISTORICAL RESULTS Comment: Siemens CentaurXP using CAN [...] LAB MICROBIOLOGY - GENERAL ORDERABLES Final Result [facility] HISTORICAL RESULTS from Last 3 Months or Most Recently Relevant to Health Maintenance Insurance [facility] Member Subscriber Plan / Payer ( fective 2023-Present) Name:Matthieu Mccoyradha Gonzales Relation to Subscriber:Self Name:Linda Mccoy Janet Payer ID:[id number] (NAIC) Group ID:Not on file Type:MEDICAID RISK OTHER Address: ATTN: CLAIMS DEPT [address] [place] [id number] Care Teams Hospital Unit Clerk Relationship Specialty Start Date End Date Mohsen Fernandes MD [address] [place], [place] [id number] PCP - General Internal Medicine 04/16/23
--- OUTSIDE RECORDS SUMMARY | 2025-01-18 18:12 | XMS_ITS | Continuity of Care Document ---
Author Organization [facility] Address [address] [place] [address] [place] [address] Phone Care Team Providers Care Smt Machine Operator Name Role Phone Paniagua OD, Igo Unavailable Unavailable Procedures Procedure Date Eye Exam Established Pt Office/outpatient Visit, Est Office/outpatient Visit, New Advance Directives Directive Yes / No Effective Date File Name No Information Encounters Encounter Description Practice Location Reason(s) For Visit Diagnoses Date Provider Providers Copied on Encounter [facility], [address] [place] [address] [address], [place], [place], [id number], tel:[phone] [facility] No Information Apr-0 1-200 9 Paniagua OD Gio. [address] , [address], [place], [place], [facility], . tel:[phone] Office/outpat ient Visit, Est [facility], [address] [place] [address] [address], [place], [place], [id number], [place] tel:[phone] [facility] No Information February-1 8-200 7 Paniagua OD [address]io. [address], [address], [place], [address], [place]. tel:[phone] Office/outpat ient Visit, New [facility], [address] [place] [address] [address], [place], [place], [id number], [place] tel:[phone] [facility] No Information February-0 9-200 7 Paniagua OD Gio. [address] , [address], [place], [address], [place]. tel:[phone] Family History Family Member Type Diagnosis Age At Onset No Information Payers Payer name Insurance type Covered alliance party ID Marly fournier(s) Medicaid [facility] [id number] Social History Type Description Quantity Date Captured [...]
--- OUTSIDE RECORDS SUMMARY | 2025-01-18 18:12 | XMS_ITS | CONTINUITY OF CARE DOCUMENT ---
Author Name kumar, kumar Address Unknown Organization [facility] Address [address] [place] [address] Phone [phone] Care Team Providers Care Machine Clothing Replacer Name Role Phone Johana Mata MD Unavailable PEGGY FINK MD Unavailable PEGGY FINK MD Unavailable [phone] PROBLEMS Condition Status Date Provider Notes PALPITATIONS-11/15 NUC NEG completed - Johana santiago MD CP- 07/14 ECHO EF 60 completed - Johana Mata MD Chest pain--cath 06/30 showed Mild CAD active 1 Johana Mata MD Palpitations active Johana Maat MD Anxiety active Johana Mata MD Hypertension active Johana Mata MD ENCOUNTERS Date Type Provider Location Encounter Diag nosis 2 - 2 In-person encounter Office Visit Johana Mata MD [facility] Chest pain--cath 06/30 showed Mild CAD 8 - 8 In-person encounter Office Visit Johana Mata MD [facility] 1 - 1 In-person encounter Office Visit Johana Mata MD [facility] PALPITATIONS-11/15 NUC NEGCP- 07/14 ECHO EF 60Chest pain--cath 06/30 showed Mild CADPalpitationsAnxietyHypertension 0 - 2 In-person encounter Office Visit Moris Poole MD [facility] 3 - 5 In-person encounter Office Visit Moris Poole MD [facility] 1 - 8 In-person encounter Office Visit Mikel Link MD [facility] PALPITATIONS-11/15 NUC NEGCP- 07/14 ECHO EF [...] [lb_av] Thalia Mckinnon height E&M 63 [in_i] [email or web address] Body Mass Index (Ratio) 31.46 kg/m2 Vikash [...] Chloe Murray blood pressure, diastolic 88 mm[Hg] Ia bailee blood pressure, systolic 149 mm[Hg] Andria farris pulse rate 74 /min Chloe Murray oxygen saturation, oximetry 96 % Chloe Murray respiratory rate E&M 15 /min Chloe Murray Body Mass Index (Ratio) 38.08 kg/m2 Shruthi scott height E&M 63 [in_i] Chloe Murray weight E&M 215 [lb_av] Chloe Mariaann blood pressure, diastolic 79 mm[Hg] Wilder Birmingham RN blood pressure, systolic 124 mm[Hg] Roime Birmingham RN pulse rate 83 /min Romie [...] chaim with family/friends E thnicity: Smoking History: Pream douglass has never smoked. Aftab Ortiz smoking [...] Payer name Policy type / Coverage type [place] red alliance party ID [place] MEDICAID (2) Medicaid [id number] ADVANCE DIRECTIVES Name Date DISCUSSED - NO DECISION MADE TREATMENT PLAN Date Name Performer [id number],S, Aftab Ahmedza i [id number],S, Aftab Ahmedza i [id number],S, Aftab Ahmedza i [id number],S, Aftab Ahmedza i [id number],S, Aftab Ahmedza i [id number],S, Aftab Ahmedza i [id number],S, Aftab Ahmedza i [id number],S, Aftab Ahmedza i Cardiology Aftab Ahmedzai Cardiology [...] Prior BP: / () Orders: E KG ([id number]) Mikel Link MD Date Name CT, Coronary Calcium Score Stress Routine PROTHROMBIN TIME WIT H INR LIPID PANEL CBC (INCLUDES DIFF/P LT) COMPREHENSIVE METABO LIC PANEL W/EGFR Cardiac Cath - Left - GC STR - Nuclear Complete Echo LIPID PANEL Stress Test - Adenos ine HISTORY OF PROCEDURES Procedure Date Procedure Name Provider Procedure Notes S tatus SNOMED-CT: [id number] Current Medications Documented Moris Poole MD completed Stress EKG Josh Villa MD complet ed Cardiolite, 2 units Moris Poole MD c ompleted SPECT Images Josh Villa MD compl eted SNOMED-CT: [id number] Current Medications Documented Moris Poole MD completed EKG Moris Poole MD completed JO ANN Link MD complete d
[2025-01-18 18:14] LABS: D Dimer 0.28 ug/mL (<0.48)
--- NOTE | 2025-01-18 18:33 | ED_ITS ---
HPI - Chest Pain General Chief Complaint: Chest Pain Stated Complaint: chest pain, light headed Time Seen by Provider: 01/18/25 17:35 Source: patient Mode of arrival: ambulatory Limitations: no limitations History of Present Illness HPI narrative: This is is a 49-year-old female with PMH of HTN, anxiety who presents to the ED for chief complaint of chief chest pain over the past 2 days. Patient states that she has associated low back pain, headache, generalized fatigue. States that the pain is in the left side of the chest and feels like a tightness. There is no specific pattern to the pain or any exertional component. Denies radiation of pain. Denies associated lightheadedness, syncope, nausea, vomiting, diaphoresis, numbness, weakness of an extremity. Denies any heart history. He states that she has been under a lot of stress but does not feel this is anxiety. Denies leg swelling, palpitations, abdominal pain, fevers, chills, cough, shortness of breath. Related Data Allergies Allergy/AdvReac Type Severity Reaction Status Date / Time No Known Allergies Allergy Verified 03/11/23 11:51 Review of Systems 2 Review of Systems: All systems as dictated in HPI [facility] Past Medical History Medical History (Updated 01/18/25 @ 19:41 by Yves Cornell PA-C) Hypertension Depression Anxiety Surgical History Surgical History (Updated 03/11/23 @ 13:02 by Nino Johnson MD) No pertinent past surgical history Exam 2 Narrative: GENERAL: Well-appearing, well-nourished, and in no acute distress. HEAD: Normocephalic, atraumatic. EYES: PERRLA and EOMI. ENT: Nares clear, no rhinorrhea or epistaxis. Mucous membranes moist. Oropharynx without tonsillar hypertrophy exudate or other lesions. NECK: Supple. No adenopathy or masses. CHEST: No respiratory distress. Clear to auscultation. No wheezes rales or rhonchi HEART: Regular rate and rhythm. No murmur heard. Normal peripheral pulses. ABDOMEN: Soft, nontender, nondistended, normal active bowel sounds. MSK: Normal range of motion. No edema. SKIN: Warm, dry, no rash. NEURO: Alert and oriented x4. No focal deficits. PSYCH: Normal mood and affect. Course Reevaluation(s) Reevaluation #1: Nursing staff updated that patient is requesting Ativan for anxiety. 0.5 mg Ativan IV given. Patient is reporting pain relief with the Toradol. Date: 01/18/25 Time: 19:41 Vital Signs Vital signs: Vital Signs Temperature 96.9 F L 01/18/25 15:17 Pulse Rate 76 01/18/25 15:17 Respiratory Rate 18 01/18/25 15:17 Blood Pressure 168/100 H 01/18/25 15:17 Pulse Oximetry 100 01/18/25 15:17 Oxygen Delivery Room Air 01/18/25 15:17 Temperature 96.9 F L 01/18/25 15:17 Pulse Rate 77 01/18/25 19:31 Respiratory Rate 20 01/18/25 19:31 Blood Pressure 180/108 H 01/18/25 19:31 Pulse Oximetry 100 01/18/25 19:16 Oxygen Delivery Room Air 01/18/25 17:34 MDM - Chest Pain MDM Narrative Medical decision making narrative: This is a 49-year-old female who presents to the ED for chief complaint chest pain. Vitals are showing elevated blood pressure but otherwise normal. Exam remarkable. Lab work shows low potassium at 3.3 but otherwise comprehensive is unremarkable. Troponin is negative. EKG shows sinus rhythm with no acute ischemic findings. Heart score is 3. D-dimer negative. Chest x-ray normal. Patient feels improved after Toradol. She was feeling anxious she was given Ativan and now she feels asymptomatic. Low concern for ACS or other acute cardiopulmonary cause of her chest pain today. Seems more likely to be consistent with anxiety. Patient will be discharged in stable condition. Supportive measures discussed and return precautions given. Patient is understanding and agreeable with plan for discharge with PCP follow-up. Lab Data 01/18/25 17:37 01/18/25 17:37 Labs: Lab Results 01/18/25 Range/Units 17:37 WBC 6.2 (4.5-10.0) K/mm3 RBC 3.92 L (4.2-5.4) M/mm3 Hgb 11.9 L (12.0-15.0) g/dL Hct 37.2 (37.0-47.0) % MCV 94.9 (80-100) fl MCH 30.4 (26-34) pg MCHC 32.0 (32-36) g/dl RDW 14.0 (11.5-14.5) % Plt Count 258 (150-375) k/mm3 MPV 10.8 H (7.4-10.4) fl Immature Gran % (Auto) 0.2 (0-0.5) % Neut % (Auto) 39.3 L (45.5-73.1) % Lymph % (Auto) 46.3 H (18.3-44.2) % [place] % (Auto) 10.3 H (2.6-8.5) % Eos % (Auto) 2.6 (0-4.4) % Baso % (Auto) 1.3 H (0.2-1.2) % Lymph # (Auto) 2.89 (0.9-3.2) K/mm3 [place] # (Auto) 0.6 (0.1-0.6) K/mm3 Eos # (Auto) 0.2 (0-0.3) K/mm3 Baso # (Auto) 0.1 (0.0-0.1) K/mm3 Abs Immat Gran (auto) 0.01 (0.00-0.031) K/mm3 Absolute Neuts (auto) 2.5 (1.3-6.7) K/mm3 Absolute Nucleated RBC 0.000 (0.0-0.012) K/mm3 Nucleated RBC % 0.0 (0.0-0.2) % PT 13.5 (11.1-14.7) Seconds INR 1.0 APTT 26.6 (22.3-36.8) Seconds D-Dimer 0.28 (<0.48) ug/mL Sodium 137 (137-145) mmol/L Potassium 3.3 L (3.4-5.0) mmol/L Chloride 99 (98-107) mmol/L Carbon Dioxide 31 H (22-30) mmol/L Anion Gap 7 (4-12) mmol/L BUN 10 (7-17) mg/dL Creatinine 0.83 (0.7-1.0) mg/dL Estim Creat Clear Calc 68 ml/min Estimated GFR > 60 (59 - ) Glucose 81 (65-110) mg/dL Calcium 8.9 (8.4-10.2) mg/dL Total Bilirubin 0.3 (0.2-1.3) mg/dL AST 18 (14-36) U/L ALT 13 (6-35) U/L Alkaline Phosphatase 66 (38-126) U/L Troponin I < 0.012 (0.000-0.034) ng/mL Total Protein 7.0 (6.3-8.2) g/dL Albumin 4.0 (3.5-5.1) g/dL Lipase 39 (23-300) U/L Discharge Plan Discharge Clinical Impression: Chest pain Patient Disposition: Home Condition: Stable Instructions: Antibiotic Form Additional Instructions: Your exam and imaging today are reassuring overall. Please follow-up very closely with your PCP on this issue. Take Tylenol and ibuprofen every 6 hours as needed for pain control. If you have any new or worsening symptoms please return to the ER for further evaluation. Patient Language: Azeri Follow-up/Referrals: Dom,Edi Connolly [Primary Care Provider] - Time of Disposition: 20:08 Quality HEART score for chest pain patients History: slightly suspicious ECG: non specific repolarization disturbance/LBTB/PM Age: > 45 and < 65 years Risk factors: 1 or 2 risk factors Troponin: < or = to 1x normal limit Heart score: 3
[2025-01-18] MEDS: POTASSIUM CHLORIDE 20 MEQ ER TABLET 40 MEQ PO (19:28)
[2025-01-18] MEDS: KETOROLAC 30 MG/ML VIAL (*BKC) IV PUSH (19:28)
[2025-01-18] MEDS: LORazepam INJ (*CRX) 2 MG/ML VIAL 0.5 MG IV PUSH (19:34)
== END 2025-01-18 21:05 | disposition home or self-care (01) ==
PROVIDERS: Emergency Medicine; Emergency Provider Physician Assistant; PCP Internal Medicine Infectious Disease
DX: R07.89 Other chest pain (principal); I10 Essential (primary) hypertension; F41.9 Anxiety disorder, unspecified
CPT/HCPCS: 36415; 71046; 80053; 83690; 84484; 85025; 85380; 85610; 85730; 93005; 96374; 96375; 99284; A9270; J1885; J2060

== ENCOUNTER 2025-02-02 20:48 | Emergency (ER) | payer OTHER, SELFPAY ==
--- NOTE | ~2025-02-02 | CT_ITS ---
EXAMINATION: CT thoracic lumbar wo con DATE: 02/02/2025 21:17 INDICATION: back pain, parasthesias . TECHNIQUE: Computed tomography (CT) of the thoracic and lumbar spine was performed without intravenou s contrast. Automated exposure control and iterative reconstruction technique were employed. The dose -length product was 595.84 mGy-cm. COMPARISON: X-ray chest 01/18/2025 FINDINGS: THORACIC SPINE: Bilateral cervical accessory ribs. Vertebral body alignment intact. Exaggerated kyphosis. Chronic mil d anterior wedge deformities at T7-T12. Multilevel mild-moderate degrees of degenerative disc disease , worse in the mid/lower thoracic spine. Multilevel moderate facet arthropathy. No severe central can al or neural foraminal narrowing. Multilevel moderate bilateral neural foraminal narrowing in the mid thoracic spine secondary to degenerative changes. No traumatic malalignment or fracture. Visualized l ayaz parenchyma is clear. LUMBAR SPINE: 5 nonrib-bearing lumbar-type vertebral bodies. Pedicles intact. Normal vertebral body alignment. Vert ebral body heights preserved. Multilevel mild degenerative disc disease. Severe hypertrophy and scler osis at the L5-S1 facets. No severe central canal or neural foraminal narrowing. Moderate central can al narrowing at L4-5 secondary to degenerative change. IMPRESSION: No acute fracture or traumatic malalignment detected in the thoracic or lumbar spine. Severe facet arthropathy at L5-S1. Reviewed, dictated and finalized at location K.
--- NOTE | ~2025-02-02 | CT_ITS ---
EXAMINATION: CT cervical spine wo con DATE: 02/02/2025 21:13 INDICATION: back pain, parasthesias TECHNIQUE: Computed tomography (CT) of the cervical spine was performed without intravenous contrast. Automated exposure control and iterative reconstruction technique were employed. The dose-length pro duct was 480.58 mGy-cm. COMPARISON: None. FINDINGS: Vertebral Body Alignment: Intact. Craniocervical and atlantoaxial alignment: No significant degenerative change. Alignment intact. Osseous structures/fracture: No evidence of a lytic or blastic process in the visualized spine. No e vidence of acute fracture. Cervical soft tissues: The paraspinal soft tissues planes are maintained. Degenerative changes: Mild degenerative disc disease at C4-5. No severe central canal or neural kimberly inal narrowing. IMPRESSION: No acute fracture or traumatic malalignment in the cervical spine. Reviewed, dictated and finalized at location K.
[2025-02-02 20:48] VITALS: BP 160/97; PULSE 93; RESP 20; TEMP 36.8; O2SAT 100
--- NOTE | 2025-02-02 20:58 | ED_ITS ---
HPI - Back Pain/Injury General Chief Complaint: Back Pain/Injury Stated Complaint: BACK PAIN X FEW WEEKS History of Present Illness HPI Narrative: 49-year-old female with a past medical history including hypertension and anxiety. Presenting for her 3rd ER visit in 4 days. Patient was seen at [facility] ER on the and discharged from the emergency department as well as being seen on the and discharged from the emergency department. She presents with back pain. She states that she has paresthesias in both her legs and midline back pain. Denies any falls or injury. No ataxia or trouble walking. No saddle anesthesias or incontinence. States that this happened to her previously but she has never had this workup but did start gabapentin for at in the remote past that seem to help. Denies any other chronic medical conditions. States that she had blood work but no imaging done during her to previous ER visits. Patient was also seen here earlier in January for chest pain and had a largely unremarkable workup including negative D-dimer negative troponin. She is not having any chest pain or shortness of breath today. No nausea, vomiting, headache, vision changes, weakness, fatigue. Related Data Allergies Allergy/AdvReac Type Severity Reaction Status Date / Time No Known Allergies Allergy Verified 03/11/23 11:51 Review of Systems Review of Systems: As reviewed above in [facility] Past Medical History Medical History Hypertension Depression Anxiety Surgical History Surgical History No pertinent past surgical history Exam Narrative: GENERAL: [Well-appearing, well-nourished, and in no acute distress.] HEAD: [Normocephalic, atraumatic.] EYES: [PERRLA and EOMI.] ENT: Nares clear, no rhinorrhea or epistaxis. Mucous membranes moist. NECK: Supple. CHEST: [Clear to auscultation. No respiratory distress.] HEART: [Regular rate and rhythm]. No murmur heard. [Normal peripheral pulses.] ABDOMEN: [Soft, nondistended], [nontender], [No rigidity or guarding] EXTREMITIES: Normal range of motion. [No edema.] SKIN: Warm, dry, no rash. NEURO: [No focal deficits]. Alert and oriented [x3.] Full strength and sensation throughout both arms and legs, able to flex and extend at the hip, knee and ankle with full symmetric strength. No saddle anesthesias, no paresthesias in the arms or legs presently. No midline back pain or step-offs reproducible on examination. Negative straight leg raise bilaterally. PSYCH: [Normal mood and affect.] Course Vital Signs Vital signs: Vital Signs Temperature 36.8 C 02/02/25 20:48 Pulse Rate 93 02/02/25 20:48 Respiratory Rate 02/02/25 20:48 Blood Pressure 160/97 H 02/02/25 20:48 Pulse Oximetry 100 02/02/25 20:48 Oxygen Delivery Room Air 02/02/25 20:48 Temperature 36.8 C 02/02/25 20:48 Pulse Rate 93 02/02/25 20:48 Respiratory Rate 02/02/25 20:48 Blood Pressure 160/97 H 02/02/25 20:48 Pulse Oximetry 100 02/02/25 20:48 Oxygen Delivery Room Air 02/02/25 20:48 MDM - Back Pain/Injury MDM Narrative Medical decision making narrative: 49-year-old female presenting for repeating counter of back pain. She states that she is occasional paresthesias in her legs as well as midline back pain. Denies any trauma or injury. States that she was evaluated 2 different times at [facility] in the last several days. Did not have any imaging studies done. Denies any falls or injury today. She has normal vital signs without any significant hypertension, tachycardia, fever, hypoxia. She has no red flag signs or symptoms of back pain including no saddle anesthesias, weakness, incontinence, traumatic onset. She is overall well-appearing has an unremarkable neurological examination. She is ambulatory without an antalgic or ataxic gait and strong symmetric strength both legs and no weakness/sensory deficits on examination. Given her repeating encounters without imaging we did elect to get CT scans of her spinal column today. Ultimately she will have to be referred to a primary care provider for referral to get MRI imaging done if this is a persistent concern. She was given gabapentin for her pain. CT scan of the cervical spine shows no traumatic fractures or malalignment. CT of the thoracic and lumbar spine shows no fractures or malalignment in the thoracic or lumbar spine but there is severe facet arthropathy at L5-S1 likely the source of patient's intermittent back pain. She is safe and stable for discharge home at this time and provided appropriate follow-up. Patient provided return precautions and discharge. Medical Records Attestation: I reviewed the patient's medical records. Imaging Data Attestation: I personally reviewed and interpreted this imaging study as follows: My impression: Impressions Cervical Spine CT 02/02/25 21:17 IMPRESSION: No acute fracture or traumatic malalignment in the cervical spine. Thoracic/Lumbar Spine CT 02/02/25 21:19 IMPRESSION: No acute fracture or traumatic malalignment detected in the thoracic or lumbar spine. Severe facet arthropathy at L5-S1. Discharge Plan Discharge Clinical Impression: Strain of lumbar region, Arthropathy of facet joint Patient Disposition: Home Condition: Stable Instructions: Antibiotic Form, Acute Low Back Pain (ED), Back Pain (ED) Additional Instructions: Your CT scan shows arthritis at L5-S1 but no malalignment or obvious bulging discs or any canal stenosis which is reassuring. Follow-up with the provided specialists further evaluation. Take Tylenol and ibuprofen for any aches or pains. Return to the ER if you have increased pain in your back, you develop lower extremity weakness/numbness/paralysis, you have numbness or tingling in your private parts, or you are unable to control your ability to urinate/stool. Patient Language: Botswanan Prescriptions: New acetaminophen [Tylenol Extra Strength] 500 mg tablet 1,000 mg PO TID PRN (Reason: pain) Qty: 30 0RF ibuprofen 600 mg tablet 600 mg PO TID PRN (Reason: pain) Qty: 20 0RF Follow-up/Referrals: Kana,Edi Connolly [Primary Care Provider] - Wilmar Powers MD [Physician] - 1 Week (Back pain, facet arthritis) Time of Disposition: 22:06
--- OUTSIDE RECORDS SUMMARY | 2025-02-02 21:31 | XMS_ITS | Continuity of Care Document ---
Author Organization [facility] Address [address] [place] [address] [place] [address] Phone Care Team Providers Care Support Service Tech Name Role Phone Paniagua OD, Gio Unavailable Unavailable Procedures Procedure Date Eye Exam Established Pt Office/outpatient Visit, Est Office/outpatient Visit, New Advance Directives Directive Yes / No Effective Date File Name No Information Encounters Encounter Description Practice Location Reason(s) For Visit Diagnoses Date Provider Providers Copied on Encounter [facility], [address] [place] [address] [address], [place], [place], [id number], tel:[phone] [facility] [place] [facility] [place] No Information Apr-0 1-200 9 Paniagua OD Gio. [address] [facility] , [address], [place], [address], . tel:[phone] Office/outpat ient Visit, Est [facility], [address] [place] [address] [address], [place], [place], [id number], [place] tel:[phone] [facility] [place] [facility] [place] No Information February-1 8-200 7 Paniagua OD Gio. [address] [facility] [address], [address], [place], [address], [place]. tel:[phone] Office/outpat ient Visit, New [facility], [address] [place] [address] [address], [place], [place], [id number], [place] tel:[phone] [facility] [place] [facility] [place] No Information February-0 9-200 7 Paniagua OD Gio. [address] , [address], [place], [address], [place]. tel:[phone] Family History Family Member Type Diagnosis Age At Onset No Information Payers Payer name Insurance type Covered democrat ID Marly fournier(s) Medicaid [facility] [id number] Social History Type Description Quantity Date Captured [...]
--- OUTSIDE RECORDS SUMMARY | 2025-02-02 21:31 | XMS_ITS | Clinical Summary ---
Author Organization [facility] Address [address] [facility] [place] [address] Care Team Providers Care Er Tech Name Role Phone Mohsen Fernandes MD Primary Care Provider Source Comments [facility],non-owned Affiliates and Associated Physician Practices is amultiple site organization consisting of ambulatory clinics and hospital sitesin [place], [place], [place] and [place]. This disclosure is being madepursuant to the Care Everywhere program and may not contain all information available regarding this patient. 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 Gender Identity Not on file Sexual Orientation [...] 7 - 26 mg/dL 03/03/2023 8:59 AM [facility] Creatinine 0.78 0.56 - 0.96 mg/dL 03/03/2023 8:59 AM [facility] Sodium 138 136 - 145 mmol/L 03/03/2023 8:59 AM [facility] Potassium 3.5 3.5 - 4.5 mmol/L 03/03/2023 8:59 AM [facility] Chloride 102 98 - 107 mmol/L 03/03/2023 8:59 AM [facility] CO2 26 22 - 29 mmol/L 03/03/2023 8:59 AM [facility] Glucose 108 70 - 115 mg/dL 03/03/2023 8:59 AM [facility] Calcium 9.7 8.4 - 10.2 mg/dL 03/03/2023 8:59 AM [facility] Protein Total 6.7 6.0 - 8.3 g/dL 03/03/2023 8:59 AM [facility] Albumin 3.8 3.4 - 5.0 g/dL 03/03/2023 8:59 AM [facility] Bilirubin Total 0.3 0.2 - 1.2 mg/dL 03/03/2023 8:59 AM [facility] Alkaline Phosphatase 50 40 - 150 U/L 03/03/2023 8:59 AM [facility] ALT 7 5 - 55 U/L 03/03/2023 8:59 AM [facility] AST 12 5 - 34 U/L 03/03/2023 8:59 AM [facility] Anion Gap 14 8 - 18 03/03/2023 8:59 AM [facility] BUN/Creatinine Ratio 12 7 - 23 03/03/2023 8:59 AM [facility] Osmolality Calculated 285 270 - 300 mOsm/kg 03/03/2023 8:59 AM [facility] Albumin/Globulin Ratio 1.3 1.1 - 2.3 03/03/2023 8:59 AM [facility] eGFR by CKD-EPI >90 >=90 mL/min/1.7 3 m2 03/03/2023 8:59 AM [facility] Blood BLOOD SPECIMEN / Unknown Venipuncture / Unknown 03/03/2023 7:44 AM T 03/03/2023 8:03 AM [facility] us Merry Bustos MD LAB - CHEMISTRY ORDERABLES Fin al Result [facility] [address] [place] [address], [place] [phone] from Last 3 Months or Most Recently Relevant to Health Maintenance Insurance [facility] Care Teams Er Tech Relationship Specialty Start Date End Date Mohsen Fernandes MD [address] [place], [place] [phone] PCP - General 04/17/19
--- OUTSIDE RECORDS SUMMARY | 2025-02-02 21:31 | XMS_ITS | Referral Summary ---
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 NONREACTIVE: Antibodies [...] LAB MICROBIOLOGY - GENERAL ORDERABLES Final Result [facility] HISTORICAL RESULTS from Last 3 Months or Most Recently Relevant to Health Maintenance Insurance [facility] Care Teams Jewelry Making Instructor Relationship Specialty [place] [address] [place] [id number] PCP - General Internal Medicine 04/16/23
--- OUTSIDE RECORDS SUMMARY | 2025-02-02 21:31 | XMS_ITS ---
Author Organization [facility] Address [address] [place] [address] Care Team Providers Care Director Emergency Name Role Phone Lulu Bobby Primary Care Provider REASON FOR VISIT 2 Month Psych F/U & Med Refill Social History Sex Assigned At : Social History Observation Description Sex Assigned At Female Encounters Encounter Location Date Provider Diagnosis [address] [place] [address] 11/23/2024 Lulu Bobby Plan Of Treatment No Information Progress Notes * Matthieu SALCEDOBishnuB:1975 (49 yo F)Acc No.[id number]:11/23/2024 UNLOCKED PROGRESS NOTE Patient: Linda WILSON Provider: JOSIANE Milligan, ROD STRAIGHTENER, FUNERAL LOCATION MANAGER-C :1975 A ge:49 Y S ex:Female Date:11/23/2024 Address: [address] [facility] Subjective: * Chief Complaints: * 1 . 2 Month Psych F/U & Med Refill. * Medical History: Objective: * Vitals: Assessment: Plan: * Treatment: * * Electronic signature of Edy Bobby , [id number] on 02/02/2025 at 09:31 PM CDT Sign off status: Pending * Provider: Prema Bobby MSN, ROD STRAIGHTENER, FUNERAL LOCATION MANAGER-C Date: 0 11/23/2024 Generated for Deborah sharp/Aisha/Hermelinda on: 0 02/02/2025 09:31 PM CDT
--- OUTSIDE RECORDS SUMMARY | 2025-02-02 21:31 | XMS_ITS | Data Portability ---
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, [address], [place], [address], 01/20/2025 06:47:55 vitamin B12, serum 2024 025 [facility], [address] [facility] [address], [address], [place], [address], 01/20/2025 09:40:10 HbA1c (hemoglob in A1c), blood 2024 025 [facility], [facility], [address], [place], [address], 01/20/2025 09:40:08 lipid panel, serum 2023 024 MYKE LIN, [address], [address], [place], [address], 07/01/2024 08:31:28 vitamin B12, serum 2023 024 [facility], [address], [address], [place], [address], 07/01/2024 08:31:23 HbA1c (hemoglob in A1c), blood 2023 024 [facility], [address], [address], [place], [address], 07/01/2024 08:31:22 vitamin D, 25-hydrox y, total, serum 2023 024 [facility], [address], [address], [place], [address], 07/01/2024 08:31:24 vitamin B12, serum 2022 023 MYKE LIN, [address], [address], [place], [address], 05/02/2023 10:15:26 HbA1c (hemoglob in A1c), blood 2022 023 [facility], [address], [address], [place], [address], 05/02/2023 10:15:25 urinalysi s, dipstick 2022 023 [facility], [address], [address], [place], [address], 05/02/2023 06:39:57 basic metabolic 1998 panel, serum or plasma 2022 023 [facility], [facility], [address], [place], [address], 05/02/2023 06:39:56 vitamin B12, serum 2022 023 [facility], [address] [place] [address], [address], [place], [address], 03/20/2023 13:10:58 TSH, ultra-sen sitive, serum 2022 023 [facility], [address] [place] [address], [address], [place], [address], 03/20/2023 13:10:57 basic metabolic 1998 panel, serum or plasma 2022 023 [facility], [address] [place] [address], [address], [place], [address], 03/20/2023 06:17:06 Referral gastroent erologist referral 2023 024 himanshu Guerrero MD, [address] [place], [address], 07/29/2024 12:24:10 Procedures None recorded. Surgeries None recorded. Imaging MAMMO, screening , digital, bilateral 2023 024 [facility] [address] [place], [address], 08/03/2024 13:29:53 XR, knee - Pain, lateral and posterior part of the right knee 2022 023 [facility] ([facility]), [address] [place], [address], 05/23/2023 17:42:28 MRI, brain, w/o contrast - Severe headache, parasthes ia, negative CT scan 2022 023 [facility] ([facility]), [address] [place], [address], 03/22/2023 13:17:02 Medication Orders atorvasta tin 40 mg tablet [address] [id number], [address], [place], [id number], 12/30/2024 13:14:40 Vitamin D2 1,250 mcg (50,000 unit) capsule [address] [facility]64820, [address], [place], [id number], 12/30/2024 13:18:09 amlodipin e 5 mg tablet [address] [facility]87688, [address], [place], [id number], 12/30/2024 13:14:38 metoprolo l succinate ER 25 mg tablet,ex tended release [address] [facility]39303, [address], [place], [id number], 12/30/2024 13:14:32 atorvasta tin 40 mg tablet [address] [facility] #82132, [address], [place], [id number], 06/30/2024 13:04:00 pantopraz ole 40 mg tablet,de layed release [address] [facility] #55378, [address], [place], [id number], 06/30/2024 13:04:55 amlodipin e 5 mg tablet [address] [facility] #39651, [address], [place], [id number], 06/30/2024 12:56:29 cyanocoba norman (vit B-12) 1,000 mcg/mL injection solution 2022 023 hdoverma Not available 06/30/2024 12:35:48 amlodipin e 10 mg tablet 2022 023 [facility], [address], [place], [id number], 06/30/2024 12:46:58 hydrochlo rothiazid e 25 mg tablet 2022 023 [facility], [address], [place], [id number], 05/01/2023 13:03:46 Patient TargetsNo targets recorded. Patient Instructions Encounter Date Encounter Id Patient Instructions Last Modified By Organization Details Last Modified Time 03/19/2023 [id number] MRI brain Labs Psychiatrist GODFREY ER if her symptoms worsen. oajao Not available 03/19/2023 15:10:40 Detailed visit oajao Not available 0 03/19/2023 16:47:11 05/01/2023 [id number] prediabetes: car e instructions oajao Not available 05/01/2023 13:07:31 Labs Xray MMG as previously ordered Discharge summary from her recent admission to [facility] Follow up in 2 weeks oajao Not available 05/01/2023 13:15:24 Detailed visit oajao Not available 0 05/01/2023 14:05:42 06/30/2024 [id number] mammogram: about this test oajao Not available 06/30/2024 12:57:49 high cholesterol : care instructions oajao Not available 06/30/2024 13:03:49 gastroesophageal reflux disease (GERD): care instructions oajao Not available 06/30/2024 13:04:49 Labs MMG Cardio logy GI Follow up in 6 months and PRN oajao Not available 06/30/2024 13:06:58 12/30/2024 [id number] body mass index: care instructions oajao Not available 12/30/2024 13:00:11 learning about healthy weight oajao Not available 12/30/2024 13:00:11 Restart Atorvast atin Take Amlodipine and Metoprolol as prescribed Labs in 2 weeks Follow up in 3-4 weeks oajao Not available 12/30/2024 13:18:38 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 DEPRES SHAMIKA OF PROGRAM EVALUATION CONSULTANT: >100 MG/DL POTENT IALLY CRITIC AL: >250 [...] <10: None Detec jennifer. Depre ssion of PROGRAM EVALUATION CONSULTANT: >100 mg/dl Poten tiall y Criti olya: [...] 10.5 10 3/uL 03/03 8:10 AM CDT [facility] Not Available Not Available 12/30/2024 03:23:02 03/03/2003/03/2023 CBC W Auto Diffe renti al panel - Blood erythrocytes [#/volume] in blood by automated count 4.46 text: 3.80 - 5.20 10 6/uL RBC 4.46 3.80 - 5.20 10 6/uL 03/03 8:10 AM CDT [facility] Not Available Not Available 12/30/2024 03:23:02 03/03/2003/03/2023 CBC W Auto Diffe renti al panel - Blood hemoglobin [mass/volume ] in blood 13.2 g/dL low: 12g/dL high: 15.6g/ dL Hemog lobin 13.2 12.0 - 15.6 g/dL 03/03 8:10 AM [facility] Not [facility] Not Available 12/30/2024 03:23:02 03/03/2003/03/2023 CBC W Auto Diffe renti al panel - Blood hematocrit [volume fraction] of blood by automated count 38.1 % low: 35%hig h: 45% Hemat ocrit 38.1 35.0 - 45.0 % 03/03 8:10 AM [facility] Not Available Not Available 12/30/2024 03:23:02 03/03/2003/03/2023 CBC W Auto Diffe renti al panel - Blood MCV [entitic volume] by automated count 85.4 fL low: 80.7fL high: 98.3fL MCV 85.4 80.7 - 98.3 fL 03/03 8:10 AM [facility] Not Available Not Available 12/30/2024 03:23:02 03/03/2003/03/2023 CBC W Auto Diffe renti al panel - Blood MCH [entitic mass] by automated count 29.6 pg low: 26.7pg high: 34pg MCH 29.6 26.7 - 34.0 pg 03/03 8:10 AM [facility] Not Available Not Available 12/30/2024 03:23:02 03/03/2003/03/2023 CBC W Auto Diffe renti al panel - Blood MCHC [mass/volume ] by automated count 34.6 g/dL low: 30.8g/ dLhigh : 35.9g/ dL MCHC 34.6 30.8 - 35.9 g/dL 03/03 8:10 AM [facility] Not Available Not Available 12/30/2024 03:23:02 03/03/2003/03/2023 CBC W Auto Diffe renti al panel - Blood erythrocyte distribution width [entitic volume] by automated count 46.9 fL low: 36fLhi gh: 50fL RDW-S D 46.9 36.0 - 50.0 fL 03/03 8:10 AM CDT [facility] Not Available Not Available 12/30/2024 03:23:02 03/03/20 23 03/03/2023 CBC W Auto Diffe renti al panel - Blood erythrocyte distribution width [ratio] by automated count 15.1 % low: 11.2%h igh: 14.8% high RDW-C V 15.1 (H) 11.2 - 14.8 % 03/03 8:10 AM CDT [facility] Not Available Not Available 12/30/2024 03:23:02 03/03/20 23 03/03/2023 CBC W Auto Diffe renti al panel - Blood platelets [#/volume] in blood by automated count 259 text: 150 - 400 10 3/uL Plate let Count 259 150 - 400 10 3/uL 03/03 8:10 AM CDT [facility] Not Available Not Available 12/30/2024 03:23:02 03/03/20 23 03/03/2023 CBC W Auto Diffe renti al panel - Blood platelet mean volume [entitic volume] in blood by automated count 10.5 fL low: 9.4fLh igh: 12.9fL MPV 10.5 9.4 - 12.9 fL 03/03 8:10 AM CDT [facility] Not Available Not Available 12/30/2024 03:23:02 03/03/2003/03/2023 CBC W Auto Diffe renti al panel - Blood nucleated erythrocytes [#/volume] in blood by automated count 0 text: 0 10 3/uL nRBC Absol campo 0.00 0 10 3/uL 03/03 8:10 AM CDT [facility] Not Available Not Available 12/30/2024 03:23:02 03/03/20 23 03/03/2023 CBC W Auto Diffe renti al panel - Blood nucleated erythrocytes /100 leukocytes [ratio] in blood by automated count 0 text: 0 /100 WBC nRBC Auto 0.0 0 /100 WBC 03/03 8:10 AM CDT [facility] Not Available Not Available 12/30/2024 03:23:02 03/03/20 23 03/03/2023 CBC W Auto Diffe renti al panel - Blood neutrophils/ 100 leukocytes in blood by automated count 61.1 % low: 35%hig h: 70% Neutr ophil s % 61.1 35.0 - 70.0 % 03/03 8:10 AM CDT [facility] Not Available Not Available 12/30/2024 03:23:02 03/03/20 23 03/03/2023 CBC W Auto Diffe renti al panel - Blood lymphocytes/ 100 leukocytes in blood by automated count 28.2 % low: 20%hig h: 43% Lymph ocyte s % 28.2 20.0 - 43.0 % 03/03 8:10 AM CDT [facility] Not Available Not Available 12/30/2024 03:23:02 03/03/20 23 03/03/2023 CBC W Auto Diffe renti al panel - Blood monocytes/10 0 leukocytes in blood by automated count 7.7 % low: 5%high : 13% Monoc ytes % 7.7 5.0 - 13.0 % 03/03 8:10 AM CDT [facility] Not Available Not Available 12/30/2024 03:23:02 03/03/20 23 03/03/2023 CBC W Auto Diffe renti al panel - Blood eosinophils/ 100 leukocytes in blood by automated count 1.6 % low: 0%high : 6% Eosin ophil s % 1.6 0.0 - 6.0 % 03/03 8:10 AM CDT [facility] Not Available Not Available 12/30/2024 03:23:02 03/03/20 23 03/03/2023 CBC W Auto Diffe renti al panel - Blood basophils/10 0 leukocytes in blood by automated count 1 % low: 0%high : 2% Basop hil % 1.0 0.0 - 2.0 % 03/03 8:10 AM CDT [facility] Not Available Not Available 12/30/2024 03:23:02 03/03/20 23 03/03/2023 CBC W Auto Diffe renti al panel - Blood neutrophils [#/volume] in blood by automated count 5.09 text: 1.60 - 7.00 10 3/uL Neutr ophil s Absol campo 5.09 1.60 - 7.00 10 3/uL 03/03 8:10 AM CDT [facility] Not Available Not Available 12/30/2024 03:23:02 03/03/2003/03/2023 CBC W Auto Diffe renti al panel - Blood lymphocytes [#/volume] in blood by automated count 2.35 text: 1.10 - 3.90 10 3/uL Lymph ocyte Absol campo 2.35 1.10 - 3.90 10 3/uL 03/03 8:10 AM CDT [facility] Not Available Not Available 12/30/2024 03:23:02 03/03/2003/03/2023 CBC W Auto Diffe renti al panel - Blood monocytes [#/volume] in blood by automated count 0.64 text: 0.26 - 1.07 10 3/uL Monoc ytes Absol campo 0.64 0.26 - 1.07 10 3/uL 03/03 8:10 AM T [facility] Not Available Not Available 12/30/2024 03:23:02 03/03/2003/03/2023 CBC W Auto Diffe renti al panel - Blood eosinophils [#/volume] in blood by automated count 0.13 text: 0.00 - 0.47 10 3/uL Eosin ophil s Absol campo 0.13 0.00 - 0.47 10 3/uL 03/03 8:10 AM CDT [facility] Not Available Not Available 12/30/2024 03:23:02 03/03/2003/03/2023 CBC W Auto Diffe renti al panel - Blood basophils [#/volume] in blood by automated count 0.08 text: 0.00 - 0.08 10 3/uL Basop hils Absol campo 0.08 0.00 - 0.08 10 3/uL 03/03 8:10 AM CDT [facility] Not Available Not Available 12/30/2024 03:23:02 03/03/20 23 03/03/2023 CBC W Auto Diffe renti al panel - Blood immature granulocytes /100 leukocytes in blood by automated count 0.4 % low: 0%high : 1% Immat ure Granu locyt es % 0.4 0.0 - 1.0 % 03/03 8:10 AM CDT [facility] Not Available Not Available 12/30/2024 03:23:02 03/03/20 23 03/03/2023 CBC W Auto Diffe renti al panel - Blood immature granulocytes absolute 0.03 Immat ure Granu locyt es Absol campo 0.03 03/03 8:10 AM CDT [facility] [...] 7 - 26 mg/dL 03/03 8:59 AM CDT [facility] Not Available Not Available 12/30/2024 03:21:25 03/03/20 23 03/03/2023 Compr ehens naedem metab olic 1999 panel - Serum or Plasm a creatinine [mass/volume ] in serum or plasma 0.78 mg/dL low: 0.56mg /dLhig h: 0.96mg /dL Creat inine 0.78 0.56 - 0.96 mg/dL 03/03 8:59 AM CDT [facility] Not Available Not Available 12/30/2024 03:21:25 03/03/20 23 03/03/2023 Compr ehens nadeem metab olic 1999 panel - Serum or Plasm a sodium [moles/volum e] in serum or plasma 138 mmol/ L low: 136mmo l/Lhig h: 145mmo l/L Sodiu m 138 136 - 145 mmol/ L 03/03 8:59 AM CDT [facility] Not Available Not Available 12/30/2024 03:21:25 03/03/20 23 03/03/2023 Compr ehens nadeem metab olic 1999 panel - Serum or Plasm a potassium [moles/volum e] in serum or plasma 3.5 mmol/ L low: 3.5mmo l/Lhig h: 4.5mmo l/L Potas sium 3.5 3.5 - 4.5 mmol/ L 03/03 8:59 AM CDT [facility] Not Available Not Available 12/30/2024 03:21:25 03/03/20 23 03/03/2023 Compr ehens nadeem metab olic 1999 panel - Serum or Plasm a chloride [moles/volum e] in serum or plasma 102 mmol/ L low: 98mmol /Lhigh : 107mmo l/L Chlor yolande 102 98 - 107 mmol/ L 03/03 8:59 AM CDT [facility] Not Available Not Available 12/30/2024 03:21:25 03/03/20 23 03/03/2023 Compr ehens nadeem metab olic 1999 panel - Serum or Plasm a carbon dioxide, total [moles/volum e] in serum or plasma 26 mmol/ L low: 22mmol /Lhigh : 29mmol /L CO2 26 22 - 29 mmol/ L 03/03 8:59 AM CDT [facility] Not Available Not Available 12/30/2024 03:21:25 03/03/20 23 03/03/2023 Compr ehens nadeem metab olic 1999 panel - Serum or Plasm a glucose [mass/volume ] in serum or plasma 108 mg/dL low: 70mg/d Lhigh: 115mg/ dL Gluco se 108 70 - 115 mg/dL 03/03 8:59 AM CDT [facility] Not Available Not Available 12/30/2024 03:21:25 03/03/20 23 03/03/2023 Compr ehens nadeem metab olic 2000 panel - Serum or Plasm a calcium [moles/volum e] in serum or plasma 9.7 mg/dL low: 8.4mg/ dLhigh : 10.2mg /dL Calci um 9.7 8.4 - 10.2 mg/dL 03/03 8:59 AM CDT [facility] Not Available Not Available 12/30/2024 03:21:25 03/03/20 23 03/03/[address] [facility] nadeem metab olic 1999 panel - Serum or Plasm a protein [mass/volume ] in serum or plasma 6.7 g/dL low: 6g/dLh igh: 8.3g/d L Prote in Total 6.7 6.0 - 8.3 g/dL 03/03 8:59 AM CDT [facility] Not Available Not Available 12/30/2024 03:21:25 03/03/20 23 03/03/[address] [facility] nadeem metab ic 1999 panel - Serum or Plasm a albumin [mass/volume ] in serum or plasma by bromocresol green (bcg) dye binding method 3.8 g/dL low: 3.4g/d Lhigh: 5g/dL Album in 3.8 3.4 - 5.0 g/dL 03/03 8:59 AM CDT [facility] Not Available Not Available 12/30/2024 03:21:25 03/03/2003/03/2023 [facility] nadeem metab ic 1999 panel - Serum or Plasm a bilirubin.to capri [mass/volume ] in serum or plasma 0.3 mg/dL low: 0.2mg/ dLhigh : 1.2mg/ dL Bilir ubin Total 0.3 0.2 - 1.2 mg/dL 03/03 8:59 AM CDT [facility] Not Available Not Available 12/30/2024 03:21:25 03/03/20 23 03/03/[address] [facility] nadeem metab olic 2000 panel - Serum or Plasm a alkaline phosphatase [enzymatic activity/vol ume] in serum or plasma 50 U/L low: 40U/Lh igh: 150U/L Alkal ine Phosp hatas e 50 40 - 150 U/L 03/03 8:59 AM CDT [facility] Not Available Not Available 12/30/2024 03:21:25 03/03/20 23 03/03/2023 Compr ehens nadeem metab olic 1999 panel - Serum or Plasm a alanine aminotransfe rase [enzymatic activity/vol ume] in serum or plasma by no addition of P-5'-P 7 U/L low: 5U/Lhi gh: 55U/L ALT 7 5 - 55 U/L 03/03 8:59 AM CDT [facility] Not Available Not Available 12/30/2024 03:21:25 03/03/20 23 03/03/2023 Compr ehens nadeem metab olic 1999 panel - Serum or Plasm a aspartate aminotransfe rase [enzymatic activity/vol ume] in serum or plasma 12 U/L low: 5U/Lhi gh: 34U/L AST 12 5 - 34 U/L 03/03 8:59 AM CDT [facility] Not Available Not Available 12/30/2024 03:21:25 03/03/20 23 03/03/2023 Compr ehens nadeem metab olic 1999 panel - Serum or Plasm a anion gap 14 low: 8high: 18 Anion Gap 14 8 - 18 03/03 8:59 AM CDT [facility] Not Available Not Available 12/30/2024 03:21:25 03/03/20 23 03/03/2023 Compr ehens nadeem metab olic 1999 panel - Serum or Plasm a urea nitrogen/cre atinine [mass ratio] in serum or plasma 12 low: 7high: 23 BUN/C reati nine Ratio 12 7 - 23 03/03 8:59 AM CDT [facility] Not Available Not Available 12/30/2024 03:21:25 03/03/20 23 03/03/2023 Compr ehens nadeem metab olic 2000 panel - Serum or Plasm a osmolality [...] 1.3 1.1 - 2.3 03/03 8:59 AM T [facility] [...] mL/mi n/1.7 3 m2 03/03 8:59 AM [facility] Not Available Not Available 12/30/2024 03:21:25 03/03/20 23 03/03/2023 Compr ehens nadeem metab olic 2000 panel - Serum or Plasm a interpretati on and review of laboratory results NORMAL Not Available Not Available 12/06 03:21:25 03/19/20 23 03/19/2023 BASIC METAB OLIC PANEL (7) glucose 103 mg/dL 65-99 above high normal Not Available [facility] [address] [place], [address], 03/20/2023 06:17:06 03/19/20 23 03/19/2023 BASIC METAB OLIC PANEL (7) BUN 8 mg/dL 8-26 Not Available [facility] [address] [place], [address], 03/20/2023 06:17:06 03/19/20 23 03/19/2023 BASIC METAB OLIC PANEL (7) creatinine 0.61 mg/dL 0.50-1 .40 Not Available [facility] [address] [place], [address], 03/20/2023 06:17:06 03/19/20 23 03/19/2023 BASIC METAB OLIC PANEL (7) eGFR 110 mL/mi n/1.7 3 >=60 Not Available [facility] [address] [place], [address], 03/20/2023 06:17:06 03/19/20 23 03/19/2023 BASIC METAB OLIC PANEL (7) BUN/creatini ne ratio 13.3 Not Available [facility] [address] [place], [address], 03/20/2023 06:17:06 03/19/20 23 03/19/2023 BASIC METAB OLIC PANEL (7) sodium 138.0 mmol/ L 136.0- 144.0 Not Available [facility] [address] [place], [address], 03/20/2023 06:17:06 03/19/20 23 03/19/2023 BASIC METAB OLIC PANEL (7) potassium 4.0 mmol/ L 3.5-5. 3 Not Available [facility] [address] [place], [address], 03/20/2023 06:17:06 03/19/20 23 03/19/2023 BASIC METAB OLIC PANEL (7) chloride 99 mmol/ l 101-11 1 below low normal Not Available [facility] [address] [place], [address], 03/20/2023 06:17:06 03/19/20 23 03/19/2023 BASIC METAB OLIC PANEL (7) carbon dioxide, total 23.0 mmol/ L 21.0-3 2.0 Not Available [facility] [address] [place] [address], [address], 03/20/2023 06:17:06 03/19/20 23 03/20/2023 TSH RFX ON ABNOR MAL TO FREE T4 TSH 0.910 uIU/m L 0.450- 4.500 Not Available [facility] ([facility]) [address], [place], [address], 03/20/2023 13:10:57 03/19/20 23 03/20/2023 VITAM IN B12 vitamin B12 195 pg/mL 232-12 45 below low normal Not Available [facility] ([facility]) [address], [place], [address], 03/20/2023 13:10:58 05/01/20 23 05/01/2023 BASIC METAB OLIC PANEL (7) glucose 86 mg/dL 65-99 Not Available [facility] [address] [place] [address], [address], 05/02/2023 06:39:55 05/01/20 23 05/01/2023 BASIC METAB OLIC PANEL (7) BUN 11 mg/dL 8-26 Not Available [facility] [address] [place], [address], 05/02/2023 06:39:55 05/01/20 23 05/01/2023 BASIC METAB OLIC PANEL (7) creatinine 0.74 mg/dL 0.50-1 .40 Not Available [facility] [address] [place], [address], 05/02/2023 06:39:55 05/01/20 23 05/01/2023 BASIC METAB OLIC PANEL (7) eGFR 99 mL/mi n/1.7 3 >=60 Not Available [facility] [address] [place], [address], 05/02/2023 06:39:55 05/01/20 23 05/01/2023 BASIC METAB OLIC PANEL (7) BUN/creatini ne ratio 15.0 Not Available [facility] [address] [place], [address], 05/02/2023 06:39:55 05/01/2005/01/2023 BASIC METAB OLIC PANEL (7) sodium 139.0 mmol/ L 136.0- 144.0 Not Available [facility] [address] [place], [address], 05/02/2023 06:39:55 05/01/20 23 05/01/2023 BASIC METAB OLIC PANEL (7) potassium 4.1 mmol/ L 3.5-5. 3 Not Available [facility] [address] [place], [address], 05/02/2023 06:39:55 05/01/2005/01/2023 BASIC METAB OLIC PANEL (7) chloride 105 mmol/ L 101-11 1 Not Available [facility] [address] [place], [address], 05/02/2023 06:39:55 05/01/2005/01/2023 BASIC METAB OLIC PANEL (7) carbon dioxide, total 24.9 mmol/ L 21.0-3 2.0 Not Available [facility] [address] [place], [address], 05/02/2023 06:39:55 05/01/2005/02/2023 HEMOG LOBIN A1C hemoglobin A1C 5.5 % 4.8-5. 6 Predi abete s: 5.7 - 6.4 Diabe chadd: >6.4 Glyce marin contr ol for adult s with diabe chadd: <7.0 Not Available [facility] ([facility]) [address], [place], [address], 05/02/2023 10:15:25 05/01/2005/02/2023 VITAM IN B12 vitamin B12 177 pg/mL 232-12 45 below low normal Not Available [facility] ([facility]) [address], [place], [address], 05/02/2023 10:15:05/01/20 23 05/01/2023 URINA LYSIS , ROUTI NE specific gravity 1.025 1.001- 1.035 Not Available [facility] [address] [place], [address], 05/02/2023 06:39:57 05/01/20 23 05/01/2023 URINA LYSIS , ROUTI NE pH 6.0 5.0-7. 0 Not Available [facility] [address] [place], [address], 05/02/2023 06:39:57 05/01/20 23 05/01/2023 URINA LYSIS , ROUTI NE urine-color YELLOW yellow Not Available [facility] [address] [place], [address], 05/02/2023 06:39:57 05/01/20 23 05/01/2023 URINA LYSIS , ROUTI NE appearance CLEAR Not Available [facility] Department [address] [place], [address], 05/02/2023 06:39:57 05/01/20 23 05/01/2023 URINA LYSIS , ROUTI NE WBC esterase Commen t NEGAT NADEEM Not Available [facility] Department [address] [place], [address], 05/02/2023 06:39:57 05/01/20 23 05/01/2023 URINA LYSIS , ROUTI NE protein Commen t NEGAT NADEEM Not Available [facility] Department [address] [place], [address], 05/02/2023 06:39:57 05/01/20 23 05/01/2023 URINA LYSIS , ROUTI NE glucose Commen t NEGAT NADEEM Not Available [facility] Department [address] [place], [address], 05/02/2023 06:39:57 05/01/20 23 05/01/2023 URINA LYSIS , ROUTI NE ketones Commen t NEGAT NADEEM Not Available [facility] Department [address] [place], [address], 05/02/2023 06:39:57 05/01/20 23 05/01/2023 URINA LYSIS , ROUTI NE occult blood See below: yusef/u L negati ve abnormal MODER ATE Not Available [facility] Department [address] [place], [address], 05/02/2023 06:39:57 05/01/20 23 05/01/2023 URINA LYSIS , ROUTI NE bilirubin Commen t negati ve NEGAT NADEEM Not Available [facility] Department [address] [place], [address], 05/02/2023 06:39:57 05/01/20 23 05/01/2023 URINA LYSIS , ROUTI NE urobilinogen ,semi-qn 0.2 eu/dL <=1.0 Not Available [facility] Department [address] [place], [address], 05/02/2023 06:39:57 05/01/20 23 05/01/2023 URINA LYSIS , ROUTI NE nitrite, urine Commen t negati ve NEGAT NADEEM Not Available [facility] Department [address] [place], [address], 05/02/2023 06:39:57 05/01/20 23 05/01/2023 MICRO SCOPI C EXAMI NATIO N WBC 0-2 Not Available [facility] Department [address] [place], [address], 05/02/2023 06:39:56 05/01/20 23 05/01/2023 MICRO SCOPI C EXAMI NATIO N RBC 0-2 Not Available [facility] Department [address] [place], [address], 05/02/2023 06:39:56 05/01/20 05/01/2023 MICRO SCOPI C EXAMI NATIO N epithelial cells (non renal) 1+ Not Available [facility] Department [address] [place], [address], 05/02/2023 06:39:56 05/01/2005/01/2023 MICRO SCOPI C EXAMI NATIO N mucus threads TRACE Not Available [facility] Department [address] [place], [address], 05/02/2023 06:39:56 05/01/2005/01/2023 MICRO SCOPI C EXAMI NATIO N bacteria Commen t NONE SEEN Not Available [facility] Department [address] [place], [address], 05/02/2023 06:39:56 06/30/20 24 07/01/2024 HEMOG LOBIN A1C hemoglobin A1C 6.0 % 4.8-5. 6 above high normal Predi abete s: 5.7 - 6.4 Diabe chadd: >6.4 Glyce marin contr ol for adult s with diabe chadd: <7.0 Not Available [facility] ([facility]) [address] [place], [address], 07/01/2024 08:31:22 06/30/20 24 07/01/2024 VITAM IN B12 vitamin B12 216 pg/mL 232-12 45 below low normal Not Available [facility] ([facility]) [address] [place], [address], 07/01/2024 08:31:23 06/30/20 24 07/01/2024 VITAM IN [...] owens MF, Trang roach [place], Navin off-F errar i STEPHEN, et al. Evalu ation , treat ment, and preve ntion of vitam in D defic iency : an Endoc rine Socie ty clini olya pract ice guide line. JCEM. 2010; 96(7) :1911 -30. Not Available [facility] ([facility]) [address] [place], [address], 07/01/2024 08:31:24 06/30/20 24 07/01/2024 LIPID PANEL cholesterol, total 132 mg/dL 100-19 9 Not Available [facility] ([facility]) [address] [place], [address], 07/01/2024 08:31:28 06/30/20 24 07/01/2024 LIPID PANEL triglyceride s 41 mg/dL 0-149 Not Available [facility] ([facility]) [address] [place], [address], 07/01/2024 08:31:28 06/30/20 24 07/01/2024 LIPID PANEL HDL cholesterol 49 mg/dL >39 Not Available [facility] ([facility]) [address] [place], [address], 07/01/2024 08:31:28 06/30/20 24 07/01/2024 LIPID PANEL VLDL cholesterol olya 10 mg/dL 5-40 Not Available [facility] ([facility]) [address] [place], [address], 07/01/2024 08:31:28 09/24/07/01/2024 LIPID PANEL LDL chol calc ([facility]) 73 mg/dL 0-99 Not Available [facility] ([facility]) [address], [place], [address], 07/01/2024 08:31:28 01/03/20 25 01/02/2025 Tropo navid [...] Available 01/03/2025 11:15:29 01/03/20 25 01/02/2025 Compr [employer] nadeem metab olic 1999 panel - Serum [...] Available 01/03/2025 11:15:29 01/03/20 25 01/02/2025 Compr [employer] nadeem metab olic 1999 panel - Serum or Plasm a carbon dioxide, total [moles/volum e] in serum or plasma 27 mmol/ L low: 22mmol /Lhigh : 30mmol /L normal Not Available Not Available 01/03/2025 11:15:29 01/03/20 25 01/02/2025 Compr [employer] nadeem [employer] olic 1999 panel - Serum or Plasm a anion gap in serum or plasma by calculation 6.4 mmol/ L low: 14mmol /Lhigh : 22mmol /L low Not Available Not Available 01/03/2025 11:15:29 01/03/20 25 01/02/2025 Compr [employer] nadeem metab olic 1999 panel - Serum or Plasm a glucose [mass/volume ] in serum or plasma 117 mg/dL low: 70mg/d Lhigh: 99mg/d L high Not Available Not Available 01/03/2025 11:15:29 01/03/20 25 01/02/2025 Compr [employer] nadeem [employer] olic 1999 panel - Serum or Plasm a urea nitrogen [mass or moles/volume ] in serum or plasma 10 mg/dL low: 8mg/dL high: 19mg/d L normal Not Available Not Available 01/03/2025 11:15:29 01/03/20 25 01/02/2025 Compr [employer] nadeem [employer] olic 1999 panel - Serum or Plasm a creatinine [mass/volume ] in serum or plasma 0.78 mg/dL low: 0.66mg /dLhig h: 1.25mg /dL normal Not Available Not Available 01/03/2025 11:15:29 01/03/20 25 01/02/2025 [facility] [employer] [facility] 1999 panel - Serum or Plasm a glomerular filtration rate [volume rate/area] in serum, plasma or blood by based on 1.73 sq M >60 normal Not Available Not Available 11:15:29 01/03/20 25 01/02/2025 [facility] 1999 panel - Serum or Plasm a alkaline phosphatase [enzymatic activity/vol ume] in serum or plasma 53 U/L low: 38U/Lh igh: 126U/L normal Not Available Not Available 01/03/2025 11:15:29 01/03/20 25 01/02/2025 [facility] [employer] [facility] 1999 panel - Serum or Plasm a alanine aminotransfe rase [enzymatic activity/vol ume] in serum or plasma 16 U/L low: 0U/Lhi gh: 35U/L normal Not Available Not Available 01/03/2025 11:15:29 01/03/20 25 01/02/2025 [facility] [employer] [facility] 1999 panel - Serum or Plasm a aspartate aminotransfe rase [enzymatic activity/vol ume] in serum or plasma 22 U/L low: 15U/Lh igh: 37U/L normal Not Available Not Available 01/03/2025 11:15:29 01/03/20 25 01/02/2025 [facility] [employer] [facility] 1999 panel - Serum or Plasm a bilirubin.to capri [mass/volume ] in serum or plasma 0.5 mg/dL low: 0.2mg/ dLhigh : 1.3mg/ dL normal Not Available Not Available 01/03/2025 11:15:29 01/03/20 25 01/02/2025 [facility] [employer] [facility] 1999 panel - Serum or Plasm a [...] Available 01/03/2025 11:15:29 01/03/20 25 01/02/2025 Compr ens nadeem metab olic 1999 panel - Serum [...] Not Available 01/04/20 11:15:29 01/04/20 25 01/03/2025 [facility] 1999 panel - Serum or Plasm a sodium [moles/volum e] in blood 136 mmol/ L low: 137mmo l/Lhig h: 145mmo l/L low Not Available Not Available 01/03/2025 11:15:29 01/04/20 25 01/03/2025 [facility] 1999 panel - Serum or Plasm a potassium [moles/volum e] in serum or plasma 3.9 mmol/ L low: 3.5mmo l/Lhig h: 5.1mmo l/L normal Not Available Not Available 01/03/2025 11:15:29 01/04/20 25 01/03/2025 [facility] 1999 panel - Serum or Plasm a chloride [moles/volum e] in serum or plasma 108 mmol/ L low: 98mmol /Lhigh : 107mmo l/L high Not Available Not Available 01/03/2025 11:15:29 01/04/20 25 01/03/2025 [facility] 1999 panel - Serum or Plasm a carbon dioxide, total [moles/volum e] in serum or plasma 26 mmol/ L low: 22mmol /Lhigh : 30mmol /L normal Not Available Not Available 01/03/2025 11:15:29 01/04/20 25 01/03/2025 [facility] 1999 panel - Serum or Plasm a anion gap in serum or plasma by calculation 5.9 mmol/ L low: 14mmol /Lhigh : 22mmol /L low Not Available Not Available 01/03/2025 11:15:29 01/04/20 25 01/03/2025 [facility] 1999 panel - Serum or Plasm a glucose [mass/volume ] in serum or plasma 105 mg/dL low: 70mg/d Lhigh: 99mg/d L high Not Available Not Available 01/03/2025 11:15:29 01/04/20 25 01/03/2025 [facility] 1999 panel - Serum or Plasm [...] normal Not Available Not Available 01/03/2025 11:15:29 01/20/20 25 01/20/2025 LIPID PANEL cholesterol, total 159 mg/dL 100-19 9 Not Available [facility] Department [address] [place] [address], [address], 01/20/2025 06:47:55 01/20/20 25 01/20/2025 LIPID PANEL triglyceride s 61 mg/dL 0-149 Not Available [facility] Department [address] [place], [address], 01/20/2025 06:47:55 01/20/20 25 01/20/2025 LIPID PANEL HDL cholesterol 51 mg/dL 40-999 Not Available [facility] Department [address] [place], [address], 01/20/2025 06:47:55 01/20/20 25 01/20/2025 LIPID PANEL VLDL cholesterol olya 12 mg/dL 5-40 Not Available [facility] Department [address] [place], [address], 01/20/2025 06:47:55 01/20/20 25 01/20/2025 LIPID PANEL LDL chol calc ([facility]) 103 mg/dL 0-99 above high normal Not Available [facility] [address], [place], [address], 01/20/2025 06:47:55 01/20/2001/20/2025 HEMOG LOBIN A1C hemoglobin A1C 5.8 % 4.8-5. 6 above high normal Predi abete s: 5.7 - 6.4 Diabe chadd: >6.4 Glyce marin contr ol for adult s with diabe chadd: <7.0 Not Available [facility] ([facility]) [address], [place], [address], 01/20/2025 09:40:08 01/20/2001/20/2025 VITAM IN B12 vitamin B12 443 pg/mL 232-12 45 Not Available [facility] ([facility]) [address], [place], [address], 01/20/2025 09:40:10 01/28/20 25 01/27/2025 Drugs ident ified in Urine by Scree n metho d Nomin al amphetamines [presence] in urine Negati ve text: negati ve normal Not Available Not Available 01/28/2025 15:15:34 01/28/20 25 01/27/2025 Drugs ident ified in Urine by Scree n metho d Nomin al barbiturates [presence] in urine Negati ve text: negati ve normal Not Available Not Available 01/28/2025 15:15:34 01/28/20 25 01/27/2025 Drugs ident ified in Urine by Scree n metho d Nomin al benzodiazepi shruti [presence] in urine Negati ve text: negati ve normal Not Available Not Available 01/28/2025 15:15:34 01/28/20 25 01/27/2025 Drugs ident ified in Urine by Scree n metho d Nomin al cocaine [presence] in urine Negati ve text: negati ve normal Not Available Not Available 01/28/2025 15:15:34 01/28/20 25 01/27/2025 Drugs ident ified in Urine by Scree n metho d Nomin hope fentanyl Negati ve text: negati ve normal Not Available Not Available 01/28/2025 15:15:34 01/28/20 25 01/27/2025 Drugs ident ified in Urine by Screpamela Bensonin al methadone [presence] in urine Negati ve text: negati ve normal Not Available Not Available 01/28/2025 15:15:34 01/28/20 25 01/27/2025 Drugs ident ified in Urine by Screpamela Bensonin hope opiates [presence] in urine Negati ve text: negati ve normal Not Available Not Available 01/28/2025 15:15:34 01/28/20 25 01/27/2025 Drugs ident ified in Urine by Screpamela Bensonin al oxycodone [presence] in urine Negati ve text: negati ve normal Not Available Not Available 01/28/2025 15:15:34 01/28/20 25 01/27/2025 Drugs ident ified in Urine by Screpamela Bensonin al phencyclidin e [presence] in urine Negati ve text: negati ve normal Not Available Not Available 01/28/2025 15:15:34 01/28/20 25 01/27/2025 Drugs ident ified in Urine by Screpamela Bensonin al cannabinoids [presence] in urine Negati ve text: negati ve normal Not Available Not Available 01/28/2025 15:15:34 01/28/20 25 01/27/2025 Natri ureti c pepti de.B proho rmone N-Ter henri [Mass /volu me] in Serum or Plasm a natriuretic peptide.B prohormone N-terminal [mass/volume ] in serum or plasma 82 pg/mL low: 0pg/mL high: 221pg/ mL normal Not Available Not Available 01/28/2025 15:15:34 01/28/20 25 01/27/2025 Tropo navid I.car diac [Mass /volu me] in Serum or Plasm a by Detec tion limit <= 0.01 ng/mL troponin I.cardiac [mass/volume ] in serum or plasma by detection limit <= 0.01 NG/mL <0.012 low: 0NG/mL high: 0.034N G/mL normal Not Available Not Available 01/28/2025 15:15:34 01/28/20 25 01/27/2025 aPTT in Plate let poor plasm a by Coagu latio n assay APTT in platelet poor plasma by coagulation assay 24.2 secon ds low: 22.7se condsh igh: 30.2se conds normal Not Available Not Available 01/28/2025 15:15:34 01/28/20 25 01/27/2025 Proth rombi n time (PT) prothrombin time (PT) 11.1 secon ds low: 9.7sec ondshi gh: 12.2se conds normal Not Available Not Available 01/28/2025 15:15:34 01/28/20 25 01/27/2025 Proth rombi n time (PT) INR in platelet poor plasma by coagulation assay 1 1 normal Not Available Not Available 01/06 15:15:34 01/28/20 25 01/27/2025 Fibri n D-dim er FEU [Mass /volu me] in Plate let poor plasm a fibrin D-dimer feu [mass/volume ] in platelet poor plasma 0.26 mg/L_ feu low: 0mg/L feuhig h: 0.49mg /L feu normal Not Available Not Available 01/28/2025 15:15:34 01/28/20 25 01/27/2025 Magne sium [Mass /volu me] in Serum or Plasm a magnesium [mass/volume ] in serum or plasma 2 mg/dL low: 1.6mg/ dLhigh : 2.3mg/ dL normal Not Available Not Available 01/28/2025 15:15:34 01/28/20 25 01/27/2025 Lipas e [Enzy matic activ ity/v olume ] in Serum or Plasm a lipase [enzymatic activity/vol ume] in serum or plasma 40 U/L low: 23U/Lh igh: 300U/L normal Not Available Not Available 01/28/2025 15:15:34 01/28/20 25 01/27/2025 Compr ehens nadeem metab olic 2000 panel - Serum or Plasm a sodium [moles/volum e] in blood 138 mmol/ L low: 137mmo l/Lhig h: 145mmo l/L normal Not Available Not Available 01/28/2025 15:15:34 01/28/20 25 01/27/2025 Compr ehens nadeem metab olic 1999 panel - Serum or Plasm a potassium [moles/volum e] in serum or plasma 3.6 mmol/ L low: 3.5mmo l/Lhig h: 5.1mmo l/L normal Not Available Not Available 01/28/2025 15:15:34 01/28/20 25 01/27/2025 Compr ehens nadeem metab olic 1999 panel - Serum or Plasm a chloride [moles/volum e] in serum or plasma 103 mmol/ L low: 98mmol /Lhigh : 107mmo l/L normal Not Available Not Available 01/28/2025 15:15:34 01/28/20 25 01/27/2025 Compr ehens nadeem metab olic 1999 panel - Serum or Plasm a carbon dioxide, total [moles/volum e] in serum or plasma 31 mmol/ L low: 22mmol /Lhigh : 30mmol /L high Not Available Not Available 01/28/2025 15:15:34 01/28/20 25 01/27/2025 Compr ehens nadeem metab olic 1999 panel - Serum or Plasm a anion gap in serum or plasma by calculation 7.6 mmol/ L low: 14mmol /Lhigh : 22mmol /L low Not Available Not Available 01/28/2025 15:15:34 01/28/20 25 01/27/2025 Compr ehens nadeem metab olic 1999 panel - Serum or Plasm a glucose [mass/volume ] in serum or plasma 87 mg/dL low: 70mg/d Lhigh: 99mg/d L normal Not Available Not Available 01/28/2025 15:15:34 01/28/20 25 01/27/2025 Compr ehens nadeem metab olic 1999 panel - Serum or Plasm a urea nitrogen [mass or moles/volume ] in serum or plasma 15 mg/dL low: 8mg/dL high: 19mg/d L normal Not Available Not Available 01/28/2025 15:15:34 01/28/20 25 01/27/2025 Compr ehens nadeem metab [facility] 1999 panel - Serum or Plasm a creatinine [mass/volume ] in serum or plasma 1.03 mg/dL low: 0.66mg /dLhig h: 1.25mg /dL normal Not Available Not Available 01/28/2025 15:15:34 01/28/20 25 01/27/2025 [facility] nadeem [facility] 1999 panel - Serum or Plasm a glomerular filtration rate [volume rate/area] in serum, plasma or blood by based on 1.73 sq M >60 normal Not Available Not Available 15:15:34 01/28/20 25 01/27/2025 [facility] 1999 panel - Serum or Plasm a alkaline phosphatase [enzymatic activity/vol ume] in serum or plasma 58 U/L low: 38U/Lh igh: 126U/L normal Not Available Not Available 01/28/2025 15:15:34 01/28/20 25 01/27/2025 [facility] [place] [address] panel - Serum or Plasm a alanine aminotransfe rase [enzymatic activity/vol ume] in serum or plasma 13 U/L low: 0U/Lhi gh: 35U/L normal Not Available Not Available 01/28/2025 15:15:34 01/28/20 25 01/27/2025 [facility] [place] [address] panel - Serum or Plasm a aspartate aminotransfe rase [enzymatic activity/vol ume] in serum or plasma 21 U/L low: 15U/Lh igh: 37U/L normal Not Available Not Available 01/28/2025 15:15:34 01/28/20 25 01/27/2025 [facility] [place] [address] panel - Serum or Plasm a bilirubin.to capri [mass/volume ] in serum or plasma 0.4 mg/dL low: 0.2mg/ dLhigh : 1.3mg/ dL normal Not Available Not Available 01/28/2025 15:15:34 01/28/20 25 01/27/2025 [facility] [place] [address] panel - Serum or Plasm a calcium [mass/volume ] in serum or plasma 9.5 mg/dL low: 8.4mg/ dLhigh : 10.2mg /dL normal Not Available Not Available 01/28/2025 15:15:34 01/28/20 25 01/27/2025 [facility] [employer] olic 1999 panel - Serum or Plasm a protein [mass/volume ] in serum or plasma 7 g/dL low: 6.3g/d Lhigh: 8.2g/d L normal Not Available Not Available 01/28/2025 15:15:34 01/28/20 25 01/27/2025 [facility] [employer]lic 1999 panel - Serum or Plasm a albumin [mass/volume ] in serum or plasma 4.2 g/dL low: 3.4g/d Lhigh: 5g/dL normal Not Available Not Available 01/28/2025 15:15:34 01/28/20 25 01/27/2025 [facility] [employer] nadeem [employer] olic 1999 panel - Serum or Plasm a globulin [mass/volume ] in serum 2.8 g/dL low: 2.6g/d Lhigh: 4.2g/d L normal Not Available Not Available 01/28/2025 15:15:34 01/28/20 25 01/27/2025 [facility] [employer] 1999 panel - Serum or Plasm a albumin/glob ulin [mass ratio] in serum or plasma 1.5 ratio low: 1ratio high: 2ratio normal Not Available Not Available 01/28/2025 15:15:34 01/28/20 25 01/27/2025 CBC W Auto Diffe renti al panel - Blood leukocytes [#/volume] in blood by automated count 6.5 x10'3 /uL low: 4.2x10 '3/uLh igh: 10.8x1 0'3/uL normal Not Available Not Available 01/28/2025 15:15:34 01/28/20 25 01/27/2025 CBC W Auto Diffe renti al panel - Blood erythrocytes [#/volume] in blood by automated count 3.93 x10'6 /uL low: 3.8x10 '6/uLh igh: 5.2x10 '6/uL normal Not Available Not Available 01/28/2025 15:15:34 01/28/20 25 01/27/2025 CBC W Auto Diffe renti al panel - Blood hemoglobin [mass/volume ] in blood 12.3 g/dL low: 12g/dL high: 15.6g/ dL normal Not Available Not Available 01/28/2025 15:15:34 01/28/20 25 01/27/2025 CBC W Auto Diffe renti al panel - Blood hematocrit [volume fraction] of blood by automated count 36.9 % low: 35.7%h igh: 45.7% normal Not Available Not Available 01/28/2025 15:15:34 01/28/20 25 01/27/2025 CBC W Auto [employer]iffe renti al panel - Blood MCV [entitic mean volume] in red blood cells by automated count 93.9 fL low: 82fLhi gh: 99fL normal Not Available Not Available 01/28/2025 15:15:34 01/28/20 25 01/27/2025 CBC W Auto [employer]iffe renti al panel - Blood MCH [entitic mass] by automated count 31.3 pg low: 27pghi gh: 33pg normal Not Available Not Available 01/28/2025 15:15:34 01/28/20 25 01/27/2025 CBC W Auto [employer]iffe [employer]i al panel - Blood MCHC [entitic mass/volume] in red blood cells by automated count 33.3 g/dL low: 31g/dL high: 36g/dL normal Not Available Not Available 01/28/2025 15:15:34 01/28/20 25 01/27/2025 CBC W Auto [employer]iffe renti al panel - Blood erythrocyte [distwidth] in red blood cells 14 % low: 11.8%h igh: 15.5% normal Not Available Not Available 01/28/2025 15:15:34 01/28/20 25 01/27/2025 CBC W Auto [employer]iffe renti al panel - Blood platelets [#/volume] in blood by automated count 239 x10'3 /uL low: 150x10 '3/uLh igh: 400x10 '3/uL normal Not Available Not Available 01/28/2025 15:15:34 01/28/20 25 01/27/2025 CBC W Auto [employer]i al panel - Blood platelet [entitic mean volume] in blood by automated count 10.8 fL low: 9fLhig h: 12.4fL normal Not Available Not Available 01/28/2025 15:15:34 01/28/20 25 01/27/2025 CBC W Auto [employer]iffe renti al panel - Blood neutrophils/ leukocytes in blood 46.3 % low: 39%hig h: 72% normal Not Available Not Available 01/28/2025 15:15:34 01/28/20 25 01/27/2025 CBC W Auto Diffe renti al panel - Blood lymphocytes/ leukocytes in blood 41.5 % low: 16%hig h: 47% normal Not Available Not Available 01/28/2025 15:15:34 01/28/20 25 01/27/2025 CBC W Auto [employer]iffe renti al panel - Blood monocytes/le ukocytes in blood 7.9 % low: 5%high : 12% normal Not Available Not Available 01/28/2025 15:15:34 01/28/20 25 01/27/2025 CBC W Auto [employer]iffe renti al panel - Blood eosinophils [#/volume] in blood 2.9 % low: 1%high : 7% normal Not Available Not Available 01/28/2025 15:15:34 01/28/20 25 01/27/2025 CBC W Auto [employer]iffe renti al panel - Blood basophils/le ukocytes in blood 1.1 % low: 0%high : 2% normal Not Available Not Available 01/28/2025 15:15:34 01/28/20 25 01/27/2025 CBC W Auto Diffe renti al panel - Blood immature granulocytes /leukocytes in blood 0.3 % low: 0%high : 0.5% normal Not Available Not Available 01/28/2025 15:15:34 01/28/20 25 01/27/2025 CBC W Auto [employer]iffe renti al panel - Blood neutrophils [#/volume] in blood 3 x10'3 /uL low: 1.5x10 '3/uLh igh: 8x10'3 /uL normal Not Available Not Available 01/28/2025 15:15:34 01/28/20 25 01/27/2025 CBC W Auto Diffe renti al panel - Blood lymphocytes [#/volume] in blood 2.69 x10'3 /uL low: 1.07x1 0'3/uL high: 3.43x1 0'3/uL normal Not Available Not Available 01/28/2025 15:15:34 01/28/20 25 01/27/2025 CBC W Auto [employer]iffe renti al panel - Blood monocytes [#/volume] in blood 0.51 x10'3 /uL low: 0.29x1 0'3/uL high: 0.99x1 0'3/uL normal Not Available Not Available 01/28/2025 15:15:34 01/28/20 25 01/27/2025 CBC W Auto Diffe renti al panel - Blood eosinophils [#/volume] in blood 0.19 x10'3 /uL low: 0.02x1 0'3/uL high: 0.53x1 0'3/uL normal Not Available Not Available 01/28/2025 15:15:34 01/28/20 25 01/27/2025 CBC W Auto Diffe renti al panel - Blood basophils [#/volume] in blood 0.07 x10'3 /uL low: 0.01x1 0'3/uL high: 0.08x1 0'3/uL normal Not Available Not Available 01/28/2025 15:15:34 01/28/20 25 01/27/2025 CBC W Auto Diffe renti al panel - Blood immature granulocytes [#/volume] in blood 0.02 x10'3 /uL low: 0x10'3 /uLhig h: 0.05x1 0'3/uL normal Not Available Not Available 01/28/2025 15:15:34 01/28/20 25 01/27/2025 CBC W Auto Diffe renti al panel - Blood nucleated erythrocytes /leukocytes [ratio] in blood 0 % high: 0% normal Not Available Not Available 01/28/2025 15:15:34 01/28/20 25 01/27/2025 CBC W Auto Diffe renti al panel - Blood nucleated erythrocytes [#/volume] in blood by automated count 0 x10'3 /uL normal Not Available Not Available 01/29/20 15:15:34 01/29/20 25 01/28/2025 Thyro tropi n [Unit s/vol ume] in Serum or Plasm a by Detec tion limit <= 0.005 mIU/L thyrotropin [units/volum e] in serum or plasma by detection limit <= 0.005 mIU/L 1.11 uIU/m L low: 0.465u IU/mLh igh: 4.68uI U/mL normal Not Available Not Available 01/28/2025 15:15:35 01/29/20 25 01/28/2025 Lipid 1995 panel - Serum or Plasm a cholesterol [mass/volume ] in serum or plasma 142 mg/dL low: 140mg/ dLhigh : 199mg/ dL normal Not Available Not Available 01/28/2025 15:15:35 01/29/20 25 01/28/2025 Lipid 1995 panel - Serum or Plasm a triglyceride [mass/volume ] in serum or plasma 52 mg/dL low: 0mg/dL high: 150mg/ dL normal Not Available Not Available 01/28/2025 15:15:35 01/29/20 25 01/28/2025 Lipid 1995 panel - Serum or Plasm a cholesterol in HDL [mass or moles/volume ] in serum or plasma 44 mg/dL low: 40mg/d L normal Not Available Not Available 01/28/2025 15:15:35 01/29/20 25 01/28/2025 Lipid 1995 panel - Serum or Plasm a cholesterol in LDL [mass/volume ] in serum or plasma 88 mg/dL low: 0mg/dL high: 130mg/ dL normal Not Available Not Available 01/28/2025 15:15:35 01/29/20 25 01/28/2025 Magne sium [Mass /volu me] in Serum or Plasm a magnesium [mass/volume ] in serum or plasma 2 mg/dL low: 1.6mg/ dLhigh : 2.3mg/ dL normal Not Available Not Available 01/28/2025 15:15:35 01/29/20 25 01/28/2025 Tropo navid I.car diac [Mass /volu me] in Serum or Plasm a by Detec tion limit <= 0.01 ng/mL troponin I.cardiac [mass/volume ] in serum or plasma by detection limit <= 0.01 NG/mL <0.012 low: 0NG/mL high: 0.034N G/mL normal Not Available Not Available 01/28/2025 15:15:35 01/29/20 25 01/28/2025 Compr ehens nadeem metab olic 1999 panel - Serum or Plasm a sodium [moles/volum e] in blood 133 mmol/ L low: 137mmo l/Lhig h: 145mmo l/L low Not Available Not Available 01/28/2025 15:15:35 01/29/20 25 01/28/2025 Compr [employer] nadeem metab olic 1999 panel - Serum or Plasm a potassium [moles/volum e] in serum or plasma 3.9 mmol/ L low: 3.5mmo l/Lhig h: 5.1mmo l/L normal Not Available Not Available 01/28/2025 15:15:35 01/29/20 25 01/28/2025 Compr ehens nadeem metab olic 1999 panel - Serum or Plasm a chloride [moles/volum e] in serum or plasma 108 mmol/ L low: 98mmol /Lhigh : 107mmo l/L high Not Available Not Available 01/28/2025 15:15:35 01/29/20 25 01/28/2025 Compr ehens nadeem metab olic 1999 panel - Serum or Plasm a carbon dioxide, total [moles/volum e] in serum or plasma 28 mmol/ L low: 22mmol /Lhigh : 30mmol /L normal Not Available Not Available 01/28/2025 15:15:35 01/29/20 25 01/28/2025 Compr [employer] nadeem metab olic 1999 panel - Serum or Plasm a anion gap in serum or plasma by calculation 0.9 mmol/ L low: 14mmol /Lhigh : 22mmol /L low Not Available Not Available 01/28/2025 15:15:35 01/29/20 25 01/28/2025 Compr [employer] nadeem metab olic 1999 panel - Serum or Plasm a glucose [mass/volume ] in serum or plasma 100 mg/dL low: 70mg/d Lhigh: 99mg/d L high Not Available Not Available 01/28/2025 15:15:35 01/29/20 25 01/28/2025 Compr [employer] nadeem metab olic 1999 panel - Serum or Plasm a urea nitrogen [mass or moles/volume ] in serum or plasma 19 mg/dL low: 8mg/dL high: 19mg/d L normal Not Available Not Available 01/28/2025 15:15:35 01/29/20 25 01/28/2025 Compr ehens nadeem metab olic 1999 panel - Serum or Plasm a creatinine [mass/volume ] in serum or plasma 0.81 mg/dL low: 0.66mg /dLhig h: 1.25mg /dL normal Not Available Not Available 01/28/2025 15:15:35 01/29/20 25 01/28/2025 [facility] 1999 panel - Serum or Plasm a glomerular filtration rate [volume rate/area] in serum, plasma or blood by based on 1.73 sq M >60 normal Not Available Not Available 15:15:35 01/29/20 25 01/28/2025 [facility] 1999 panel - Serum or Plasm a alkaline phosphatase [enzymatic activity/vol ume] in serum or plasma 52 U/L low: 38U/Lh igh: 126U/L normal Not Available Not Available 01/28/2025 15:15:35 01/29/20 25 01/28/2025 [facility] [place] [address] panel - Serum or Plasm a alanine aminotransfe rase [enzymatic activity/vol ume] in serum or plasma 10 U/L low: 0U/Lhi gh: 35U/L normal Not Available Not Available 01/28/2025 15:15:35 01/29/20 25 01/28/2025 [facility] [place] [address] panel - Serum or Plasm a aspartate aminotransfe rase [enzymatic activity/vol ume] in serum or plasma 15 U/L low: 15U/Lh igh: 37U/L normal Not Available Not Available 01/28/2025 15:15:35 01/29/20 25 01/28/2025 [facility] [place] [address] panel - Serum or Plasm a bilirubin.to capri [mass/volume ] in serum or plasma 0.2 mg/dL low: 0.2mg/ dLhigh : 1.3mg/ dL normal Not Available Not Available 01/28/2025 15:15:35 01/29/20 25 01/28/2025 [facility] [place] [address] panel - Serum or Plasm a calcium [mass/volume ] in serum or plasma 9 mg/dL low: 8.4mg/ dLhigh : 10.2mg /dL normal Not Available Not Available 01/28/2025 15:15:35 01/29/20 25 01/28/2025 [facility] 1999 panel - Serum or Plasm a protein [mass/volume ] in serum or plasma 5.5 g/dL low: 6.3g/d Lhigh: 8.2g/d L low Not Available Not Available 01/28/2025 15:15:35 01/29/20 25 01/28/2025 [facility] [employer] 1999 panel - Serum or Plasm a albumin [mass/volume ] in serum or plasma 3.1 g/dL low: 3.4g/d Lhigh: 5g/dL low Not Available Not Available 01/28/2025 15:15:35 01/29/20 25 01/28/2025 [facility] [employer] 1999 panel - Serum or Plasm a globulin [mass/volume ] in serum 2.4 g/dL low: 2.6g/d Lhigh: 4.2g/d L low Not Available Not Available 01/28/2025 15:15:35 01/29/20 25 01/28/2025 [facility] [employer] [facility] 1999 panel - Serum or Plasm a albumin/glob ulin [mass ratio] in serum or plasma 1.3 ratio low: 1ratio high: 2ratio normal Not Available Not Available 01/28/2025 15:15:35 01/29/20 25 01/28/2025 [facility] [employer] [employer] panel - Blood leukocytes [#/volume] in blood by automated count 6 x10'3 /uL low: 4.2x10 '3/uLh igh: 10.8x1 0'3/uL normal Not Available Not Available 01/28/2025 15:15:35 01/29/20 25 01/28/2025 [facility] [employer] al panel - Blood erythrocytes [#/volume] in blood by automated count 3.57 x10'6 /uL low: 3.8x10 '6/uLh igh: 5.2x10 '6/uL low Not Available Not Available 01/28/2025 15:15:35 01/29/20 25 01/28/2025 [facility] [employer] [employer] panel - Blood hemoglobin [mass/volume ] in blood 11 g/dL low: 12g/dL high: 15.6g/ dL low Not Available Not Available 01/28/2025 15:15:35 01/29/20 25 01/28/2025 [facility] W [employer] [employer] al panel - Blood hematocrit [volume fraction] of blood by automated count 33.5 % low: 35.7%h igh: 45.7% low Not Available Not Available 01/28/2025 15:15:35 01/29/20 25 01/28/2025 [facility] W [employer] al panel - Blood MCV [entitic mean volume] in red blood cells by automated count 93.8 fL low: 82fLhi gh: 99fL normal Not Available Not Available 01/28/2025 15:15:35 01/29/20 25 01/28/2025 [facility] W [employer] al panel - Blood MCH [entitic mass] by automated count 30.8 pg low: 27pghi gh: 33pg normal Not Available Not Available 01/28/2025 15:15:35 01/29/20 25 01/28/2025 [facility] W [employer] al panel - Blood MCHC [entitic mass/volume] in red blood cells by automated count 32.8 g/dL low: 31g/dL high: 36g/dL normal Not Available Not Available 01/28/2025 15:15:35 01/29/20 25 01/28/2025 [facility] [employer] panel - Blood erythrocyte [distwidth] in red blood cells 13.9 % low: 11.8%h igh: 15.5% normal Not Available Not Available 01/28/2025 15:15:35 01/29/20 25 01/28/2025 [facility] W [employer] al panel - Blood platelets [#/volume] in blood by automated count 197 x10'3 /uL low: 150x10 '3/uLh igh: 400x10 '3/uL normal Not Available Not Available 01/28/2025 15:15:35 01/29/20 25 01/28/2025 [facility] [employer] [facility] panel - Blood platelet [entitic mean volume] in blood by automated count 10.5 fL low: 9fLhig h: 12.4fL normal Not Available Not Available 01/28/2025 15:15:35 01/29/20 25 01/28/2025 CBC W [employer] al panel - Blood neutrophils/ leukocytes in blood 42 % low: 39%hig h: 72% normal Not Available Not Available 01/28/2025 15:15:35 01/29/20 25 01/28/2025 CBC W [employer] al panel - Blood lymphocytes/ leukocytes in blood 44.8 % low: 16%hig h: 47% normal Not Available Not Available 01/28/2025 15:15:35 01/29/20 25 01/28/2025 CBC W Auto [employer]iffe renti al panel - Blood monocytes/le ukocytes in blood 9.2 % low: 5%high : 12% normal Not Available Not Available 01/28/2025 15:15:35 01/29/20 25 01/28/2025 CBC W [employer]i al panel - Blood eosinophils [#/volume] in blood 3 % low: 1%high : 7% normal Not Available Not Available 01/28/2025 15:15:35 01/29/20 25 01/28/2025 CBC W [employer]i al panel - Blood basophils/le ukocytes in blood 0.8 % low: 0%high : 2% normal Not Available Not Available 01/28/2025 15:15:35 01/29/20 25 01/28/2025 CBC W Auto [employer]iffe renti al panel - Blood immature granulocytes /leukocytes in blood 0.2 % low: 0%high : 0.5% normal Not Available Not Available 01/28/2025 15:15:35 01/29/20 25 01/28/2025 CBC W Auto [employer]iffe [employer]i al panel - Blood neutrophils [#/volume] in blood 2.52 x10'3 /uL low: 1.5x10 '3/uLh igh: 8x10'3 /uL normal Not Available Not Available 01/28/2025 15:15:35 01/29/20 25 01/28/2025 CBC W Auto Diffe renti al panel - Blood lymphocytes [#/volume] in blood 2.69 x10'3 /uL low: 1.07x1 0'3/uL high: 3.43x1 0'3/uL normal Not Available Not Available 01/28/2025 15:15:35 01/29/20 25 01/28/2025 CBC W Auto Diffe renti al panel - Blood monocytes [#/volume] in blood 0.55 x10'3 /uL low: 0.29x1 0'3/uL high: 0.99x1 0'3/uL normal Not Available Not Available 01/28/2025 15:15:35 01/29/20 25 01/28/2025 CBC W Auto Diffe renti al panel - Blood eosinophils [#/volume] in blood 0.18 x10'3 /uL low: 0.02x1 0'3/uL high: 0.53x1 0'3/uL normal Not Available Not Available 01/28/2025 15:15:35 01/29/20 25 01/28/2025 CBC W Auto Diffe renti al panel - Blood basophils [#/volume] in blood 0.05 x10'3 /uL low: 0.01x1 0'3/uL high: 0.08x1 0'3/uL normal Not Available Not Available 01/28/2025 15:15:35 01/29/20 25 01/28/2025 CBC W Auto [employer]iffe renti al panel - Blood immature granulocytes [#/volume] in blood 0.01 x10'3 /uL low: 0x10'3 /uLhig h: 0.05x1 0'3/uL normal Not Available Not Available 01/28/2025 15:15:35 01/29/20 25 01/28/2025 CBC W Auto [facility]iffe renti al panel - Blood nucleated erythrocytes /leukocytes [ratio] in blood 0 % high: 0% normal Not Available Not Available 01/28/2025 15:15:35 01/29/20 25 01/28/2025 CBC W Auto Diffe renti al panel - Blood nucleated erythrocytes [#/volume] in blood by automated count 0 x10'3 /uL normal Not Available Not Available 01/29/20 15:15:35 01/29/20 25 01/28/2025 Tropo navid I.car diac [Mass /volu me] in Serum or Plasm a by Detec tion limit <= 0.01 ng/mL troponin I.cardiac [mass/volume ] in serum or plasma by detection limit <= 0.01 NG/mL <0.012 low: 0NG/mL high: 0.034N G/mL normal Not Available Not Available 01/28/2025 15:15:34 03/22/20 23 03/22/2023 MRI, brain , w/o contr ast No observ [facility] ed[facility] [address] [place], [address], 04/03/2023 16:06:47 03/30/20 23 03/30/2023 CT, head, w/o contr ast No observ ation record ed. [facility] [address] [place], [address], 03/31/2023 08:15:39 05/06/20 23 03/30/2023 CT, head, w/o contr ast No observ ation record ed. [facility] [address] [place], [address], 05/06/2023 13:41:40 05/06/20 23 03/30/2023 CT, head, w/o contr ast No observ ation record ed. [facility] [address] [place], [address], 05/06/2023 13:42:11 05/23/20 23 05/23/2023 XR, knee No observ ation record ed. [facility] [address] [place], [address], 06/30/2024 12:42:33 05/24/20 23 05/24/2023 MAMMO , scree shashi, bilat eral No observ ation record ed. [facility] [address] [place], [address], 06/30/2024 12:42:33 06/03/20 23 05/31/2023 CT, angio gram, chest , w/ contr ast No observ ation record ed. [facility] [address], [place], [address], 06/30/2024 12:42:32 08/03/20 24 08/03/2024 MAMMO , scree shashi, digit al, bilat eral No observ ation record ed. [facility] [address] [place], [address], 12/30/2024 12:58:24 01/19/20 25 01/18/2025 XR, chest No observ ation record ed. [place] [id number] [facility] [address], [place], [address], 01/19/2025 08:59:47 02/03/20 25 02/02/2025 imagi ng/dianelys agnos tic resul t No observ ation record ed. [facility] [address] [facility] [address], [place], [address], 02/02/2025 22:23:09 Result Notes None recorded. Problems Name Problem SNOMED Code Status Onset Date Resolution Date Notes Provider Name and Address Organization Details Recorded Time Influenza vaccination declined 066694292 Active 2017 Not Available [facility] 4 22:43:00 Mixed anxiety and depressive disorder 051240675 Active 2017 Not Available [facility] 4 22:43:00 Mammography abnormal 291776557 Active 2020 Not Available [facility] 4 22:43:00 SARS-CoV-2 vaccination declined 2073296784 Active 2022 Not Available [facility] 4 22:43:00 Vitamin B12 deficiency (non anemic) 44984863 Active 2022 Not Available [facility] 4 22:43:00 Palpitations 17938009 Active Not Available [facility] 4 22:43:00 Generalized anxiety disorder 22270044 Active Not Available [facility] 4 22:43:00 Depressive disorder 47840435 Active Not Available [facility] 4 22:43:00 Overweight 254955087 Active Not Available [facility] 4 22:43:00 Chest pain 05818094 Active Not Available [facility] 4 22:43:00 Anemia 555870091 Active Not Available [facility] 4 22:43:00 Fatigue 74701722 Active Not Available [facility] 4 22:43:00 Iron deficiency anemia 94870686 Active Not Available [facility] 4 22:43:00 Cardiovascul ar stress test abnormal 231198815 Active Not Available [facility] 4 22:43:00 Disorder of lipid metabolism 763605164 Active Not Available [facility] 4 22:43:00 Benign hypertension 65916291 Active Not Available [facility] 4 22:43:00 Problem Notes None recorded. Procedures Surgical History Date Name Laterality Status Provider Name and Address Organization Details Recorded Time 2023 esophagogastroduodenoscopy completed Kwan Bello MD Attn: Misael solis,[address] [facility], [place], [address], [facility] 4 09:08:05 2020 Date of Last Pap Smear completed IVY VELAZQUEZ Attn: Misael solis,[address] [facility], [place], [address], [facility] 1 10:13:33 2018 colonoscopy completed Mohsen Fernandes MD Attn: Misael solis,[address] [facility], [place], [address], [facility] 1 11:14:05 2014 Date of Last Mammogram completed Mohsen Fernandes MD Attn: Misael solis,[address] [facility], [place], [address], [place] [facility] 1 11:17:32 Caesarean Section completed January RUEL Saha [place] [facility] 5 15:52:05 Imaging Results Imaging Date Name Status LastModified by [facility] Details LastModified Time 03/22/2023 MRI, brain, w/o contrast completed [address], [address], 04/03/2023 16:06:47 03/30/2023 CT, head, w/o contrast completed [facility] [address] [place], [address], 03/31/2023 08:15:39 03/30/2023 CT, head, w/o contrast completed [facility] [address] [place], [address], 05/06/2023 13:41:40 03/30/2023 CT, head, w/o contrast completed [facility] [address] [place], [address], 05/06/2023 13:42:11 05/23/2023 XR, knee completed [facility] [address] [place], [address], 06/30/2024 12:42:33 05/24/2023 MAMMO, screening, bilateral completed [facility] [address] [place], [address], 06/30/2024 12:42:33 05/31/2023 CT, angiogram, chest, w/ contrast completed [facility] [address], [place], [address], 06/30/2024 12:42:32 08/03/2024 MAMMO, screening, digital, bilateral completed [facility] [address] [place], [address], 12/30/2024 12:58:24 01/18/2025 XR, chest completed [address], [address], 01/19/2025 08:59:47 02/02/2025 imaging/diagno stic result active [address], [address], 02/02/2025 22:23:09 Procedure Notes None recorded. Medical Equipment None Reported. Allergies Allergen ID Allergen Name Allergen Category Reaction Reaction Severity Criticality Documentation Date Start Date Code Code System Note Provider Name and Address Organization Details Recorded Time 079730 No known allergy (situatio n) Not available Not available Not available Not available 01/17/2023 04772 6003 SNOMED Not Available Not Available Not [...] Updated DateTime 3 158.75 cm 29.3 kg/m2 03490.5 6 g 100 /min 99 % 99 % 14 /min 156 mm[Hg] 100 mm[Hg] Shyann Eng MA [place] [facility] 3 14:49:59 Date Recorded Body height Body mass index (BMI) Body weight Heart rate Respiratory rate Oxygen saturation Oxygen saturation in Arterial blood by Pulse oximetry Systolic blood pressure Diastolic blood pressure Provider Name and Address Organization Details Last Updated DateTime 3 158.75 cm 31.3 kg/m2 28144.0 7 g 88 /min 14 /min 99 % 99 % 138 mm[Hg] 82 mm[Hg] Alessia Morris MA [facility] 3 12:22:19 Date Recorded Body height Provider Name an d Address Organization Details Last Updated DateTime 05/16/2023 158.75 cm Shyann Eng MA [facility] 023 17:01:35 Date Recorded Body height Body mass index (BMI) Body weight Heart rate Oxygen saturation Oxygen saturation in Arterial blood by Pulse oximetry Respiratory rate Body temperature Systolic blood pressure Diastolic blood pressure Provider Name and Address Organization Details Last Updated DateTime 4 158.75 cm 31.5 kg/m2 68029.6 6 g 82 /min 99 % 99 % 16 /min 98.2 [degF] 130 mm[Hg] 84 mm[Hg] Shyann Eng MA [facility] 4 12:37:53 Date Recorded Body height Body mass index (BMI) Body weight Heart rate Oxygen saturation Oxygen saturation in Arterial blood by Pulse oximetry Body temperature Systolic blood pressure Diastolic blood pressure Provider Name and Address Organization Details Last Updated DateTime 5 158.75 cm 31.5 kg/m2 36861.3 8 g 78 /min 100 % 100 % 98.3 [degF] 150 mm[Hg] 90 mm[Hg] Shyann Eng MA [facility] 5 12:54:42 Social History Question Answer Notes LastModified by Organizat ion Details LastModified Time Tobacco Smoking Status Never Smoker JanuaryRUEL [facility] 08/18/2015 15:52:05 What Is Your Level [...] Response Coronary Artery Disease N Other N Atrial Fibrillation N High Blood Pressure Y Thyroid Problems N Kidney or Bladder Problems N Depression Y COPD N Blood Clots N GI Problems N Skin Problems N Anemia Y Heart Attack (NH) N Diabetes N Anxiety Disorder Y Muscle, Joint, or Bone Problems N Seizures/Epilepsy N Acid Reflux (GERD) N Cancer N Stroke N Allergies N Asthma N High Cholesterol N Hepatitis N Liver [...] SNOMED-CT Code Diagnosis ICD10 Code Diagnosis Note [id number] MD José Enrique (Adult Med) [address] [place] [phone] 08/18/2015 15:24:07 08/22/2015 10:58:43 General examination of patient 495262676 Z00.00 40 y/o BF who was last seen 06/24/2013 Depressive disorder 3548 9007 F32.9 F41.9 Previously under the care of Dr. Parada who was treating her depression and anxiety with Effexor and Buspar, she is now receiving care at [facility]. I have encouraged her to resume her Effexor. Overweight 473656025 E66 .3 Chest pain 85816257 R07. [address] done 11/30/2008 had revealed T wave abnormalit y and ant/inf ischemia, she was seen by Dr. Link in the past and she probably should fopllow up Anemia 037434463 D64.9 S/p EGD/capsul e endoscopy/ colonoscop y. She has seen both Sindy Horan and Cesar. Screening mammography 24 826215 Z12.31 Fatigue 18196816 R53.83 [id number] MD José Enrique (Adult Med) [address] [place] [phone] 10/10/2015 15:33:01 10/11/2015 18:15:16 Cardiovascular stress test abnormal 845733811 R94.39 It appears that the plan is a CC Iron defic iency anemia 97484743 D50.9 D51.9 B12 & Iron deficiency , [...] formulatio n. Disorder o f lipid metabolism 339815822 E78.9 R73.01 Benign hypertension 1072 5009 I10 Low salt diet, restart BP lowering meds should be restarted. HCTZ 12.5mg po daily, side effects were discussed, including dizziness, headache and a rash. Depressive disorder 3548 9007 F32.9 F41.9 Previously under the care of Dr. Parada who was treating her depression and anxiety with Effexor and Buspar, she is now receiving care at [facility]. I have encouraged her take her Effexor as prescribed . She has an issue with taking oral medication s in general. [id number] [facility] [address] [place] [phone] 10/25/2016 11:21:27 10/30/2016 11:07:03 Anemia 616068613 D64.9 S/p EGD/capsul e endoscopy/ colonoscop y, she has seen both Drs. Horan and Cesar. She is not complaint with her oral iron and B12 IM, she takes oral B12. I will recheck her labs and decide on the need for further treatment Disorder o f vitamin B12 596844419 E53.8 Benign hypertension 1072 5009 I10 Not compliant with the HCTZ.Side effects of Lisinopril were discussed. Immunization refused 275 769195 Z28.20 General ex amination of patient 271261145 Z00.01 Screening mammography 24 818820 Z12.31 Depressive disorder 3548 9007 F32.9 F41.9 Previously under the care of Dr. Parada who was treating her depression and anxiety with Effexor and Buspar, she is now receiving care at [facility]. I have encouraged her take her Effexor as prescribed . She still has an issue with taking oral medication s in general. Impaired f asting glycemia 987461975 R73.01 Low back pain 761366365 M54.5 Kidney stone 35004737 N2 0.0 I do not think that this is the cause of her current bilateral back pain although I agree that she has non obstructin g R. sided kidney stones on CT scan. Noncomplia nce with medication regimen 471867845 Z91.14 [id number] MD José Enrique (Adult Med) [address] [place] [phone] 0 12/06/2016 12:22:44 12/06/2016 13:09:17 Vitamin B deficiency 69357880 E53.9 Vitamin D deficiency 347 17341 E55.9 Folic acid deficiency 19 3612186 E53.8 Anemia 488320289 D64.9 Benign ess ential hypertension 9805210 I10 They told me from [place] that I could get a BP cuff [id number] MD José Enrique (Adult Med) [address] [place] [phone] 0 10/06/2018 12:25:32 10/06/2018 13:12:03 General examination of patient 363385003 Z00.01 Benign hypertension 1072 5009 I10 Restart HCTZ. Influenza vaccination declined 215458110 Z28.21 Screening for malignant neoplasm of breast 276929767 Z12.31 Screening for malignant neoplasm of cervix 272018532 Z12.4 Mixed anxi ety and depressive disorder 414958754 F41.8 [id number] MD José Enrique (Adult Med) [address] [place] [phone] 0 03/13/2021 10:21:32 03/13/2021 11:42:04 Benign hypertension 52094401 I10 Restart HCTZ. Screening for malignant neoplasm of breast 303466317 Z12.31 General ex amination of patient 674046448 Z00.01 Adult heal th examination 125539125 Z00.01 Impaired f asting glycemia 436207777 R73.01 Disorder o f lipid metabolism 244918001 E78.9 R73.01 Eruption 341498078 R21 Immunization advised 310 619704 Z71.9 Anemia 742954419 D64.9 [id number] MD José Enrique (Adult Med) [address] [place] [phone] 0 04/27/2021 12:20:58 04/28/2021 18:28:18 Benign hypertension 53482315 I10 Uncontroll edContinue HCTZ.Start Losartan, side effects were discussedL abs Disorder o f lipid metabolism 263339633 E78.9 R73.01 Discussed Chronic anemia 103715416 D64.9 History of B12 & Iron deficiency , anemia, previously on oral iron and then infusions. LabsConsid er restarting B12/or Fe replacemen t Blood in urine 82583566 R31.9 Immunization advised 310 144639 Z71.9 [id number] IVY MEJIAS ([employer]) [address] [place] [phone] 05/04/2021 09:25:54 05/05/2021 15:56:11 Gynecologic examination 91944971 Z01.419 -clinical breast & pelvic examinatio ns completed today, unremarkab le -cervical cancer screening: last Pap unknown many years ago . Repeated today -routine nuswab completed, treat as needed -Educated osteoporos is prevention including calcium rich diet, weight bearing exercise. Will start supplement . -RTC in 1yr Venereal d isease screening 775584530 Z11.3 Screening for malignant neoplasm of breast 390124517 Z12.31 Last mamm 08/30/15 BIRADS 1. Annual screening mamm ordered per Dr. Fernandes, scheduled in May. Obesity 176463577 E66.9 BMI 35.5. Diet high in fruits and vegetables . Limit fat, sugar, and processed foods. Exercise at least 30 minutes 5x/week. Microscopic hematuria 19 8271568 R31.29 Noted by PCP 04/27/21. UA today with moderate blood. Advised to follow up with PCP. [id number] MD José Enrique (Adult Med) [address] [place] [phone] 06/08/2021 12:23:28 06/09/2021 05:50:41 Chronic anemia 577887936 D64.9 B12 & Iron deficiency , anemia, previously on oral iron and then infusions. Continue iron but take it TID and start B12 injection. Colonoscop y Mammography abnormal 168 898499 R92.8 Abnormal MMG 05/08/2021Fo olya area of asymmetry R. outer mid breastUS 05/18/2021 benign Blood in urine 84465133 R31.9 Vaccine de clined by patient 2835098985 02 Z28.29 [id number] MD José Enrique (Adult Med) [address] [place] [address] 08/09/2021 12:24:10 08/10/2021 12:04:08 Chronic anemia 122498678 D64.9 B12 & Iron deficiency , anemia.Con tinue iron and B12 injections .Colonosco py 01/23/2019 Blood in urine 76662047 R31.9 Labs 06/08/2021, her hematuria persistsUS normalUrol ogy Benign hypertension 1072 5009 I10 Uncontroll edContinue HCTZ.Incre ase Losartan to 50 mg, side effects were discussed [id number] MD José Enrique (Adult Med) [address] [place] [address] 01/08/2023 10:02:03 01/09/2023 09:12:01 General examination of patient 900168248 Z00.01 SARS-CoV-2 vaccination declined 9452206989 Z28.21 Influenza vaccination declined 002083148 Z28.21 Screening for malignant neoplasm of breast 800822209 Z12.31 Essential hypertension 73007919 I10 She has apparently been taking Losartan/H CTZ 50/12.5, her blood pressure is uncontroll ed.Stop Losartan/H CTZ 50/12.5Sta rt Losartan 50 mgStart HCTZ 25 mgSide effects were discussed Palpitations 19528330 R0 0.2 Impaired dentition 87744 4008 K03.9 Chronic anemia 385629802 D64.9 Hx of B12 & Iron deficiency , anemia.Col onoscopy 01/23/2019 Screening for malignant neoplasm of cervix 658740653 Z12.4 [id number] MD José Enrique (Adult Med) [address] [place] [address] 01/17/2023 11:55:59 01/18/2023 14:28:38 Vitamin B12 deficiency (non anemic) 44929111 E53.8 Disorder o f lipid metabolism 936598002 E78.9 R73.01 Discussed Body mass index 30+ - obesity 602005220 Z68.31 Unexplaine d weight loss 221449527 R63.4 Benign hypertension 1072 5009 I10 Improvemen t noted although she is not yet at goal.Meaghan nue HCTZ 25 mg and Losartan 100 mg, side effects were discussed [id number] MD José Enrique (Adult Med) [address] [place] [address] 03/19/2023 14:31:23 03/20/2023 16:49:47 Insomnia 075579272 G47.00 Failing Trazodone, Seroquel Headache 38778908 R51.9 Paresthesia 08752713 R20 .2 It is unclear if this is side effect of one of her medication s Essential hypertension 19928819 I10 Continue Losartan 100 mg.Restart HCTZ 25 mg OV 01/17/2023S he has apparently been taking Losartan/H CTZ 50/12.5, her blood pressure is uncontroll ed.Stop Losartan/H CTZ 50/12.5Sta rt Losartan 50 mgStart HCTZ 25 mgSide effects were discussed [id number] MD José Enrique (Adult Med) [address] [place] [address] 05/01/2023 12:02:57 05/02/2023 14:37:41 Essential hypertension 02379256 I10 Stable on Amlodipine OV 03/19/2023 ontinue Losartan 100 mg.Restart HCTZ 25 mg OV 01/17/2023S he has apparently been taking Losartan/H CTZ 50/12.5, her blood pressure is uncontroll ed.Stop Losartan/H CTZ 50/12.5Sta rt Losartan 50 mgStart HCTZ 25 mgSide effects were discussed Medication monitoring 39 5246305 Z51.81 Impaired f asting glycemia 362897860 R73.01 Pain of ri ght knee joint 9304223811 61715 M25.561 Vitamin B1 2 deficiency (non anemic) 61113728 E53.8 B12 IM administer ed on 04/11/2023Sh e is on oral B12 but prefers IM B12 Follow-up visit 85207689 9 Z09 [id number] RUEL James (Adult Med) [address] [place] [address] 05/16/2023 16:54:25 05/21/2023 12:32:09 Vitamin B12 deficiency (non anemic) 74534234 E53.8 Labs 05/01/2023 B12 177Continu e B12 IM OV 05/01/2023 12 IM administer ed on 04/11/2023Sh e is on oral B12 but prefers IM B12 [id number] [facility] [address] [place] [address] 06/30/2024 12:24:15 07/03/2024 12:24:22 Essential hypertension 65158471 I10 Stable and may eventually need an increase in the dose of her Amlodipine She will be seeing her cardiologi st next week OV 05/01/2023 table on Amlodipine OV 03/19/2023 ontinue Losartan 100 mg.Restart HCTZ 25 mg OV 01/17/2023 he has apparently been taking Losartan/H CTZ 50/12.5, her blood pressure is uncontroll ed.Stop Losartan/H CTZ 50/12.5Sta rt Losartan 50 mgStart HCTZ 25 mgSide effects were discussed Impaired f asting glycemia 870947468 R73.01 Vitamin B1 2 deficiency (non anemic) 40768000 E53.8 OV 05/01/2023 12 IM administer ed on 04/11/2023Sh justa is on oral B12 but prefers IM B12 Follow-up visit 90563754 9 Z09 Screening mammography 24 887246 Z12.31 Pure hypercholesterolemia 405515045 E78.00 Vitamin D deficiency 347 75432 E55.9 Gastroesop hageal reflux disease 208424188 K21.9 Influenza vaccination declined 022746048 Z28.21 [id number] Mohsen Fernandes [facility] [address] [place] [address] 12/30/2024 12:22:02 12/31/2024 11:29:09 Body mass index 30+ - obesity 922007656 Z68.31 Essential hypertension 03388357 I10 Uncontroll ed due to poor compliance OV 06/30/2024S table and may eventually need an increase in the dose of her Amlodipine She will be seeing her cardiologi st next week OV 05/01/2023 table on Amlodipine OV 03/19/2023 ontinue Losartan 100 mg.Restart HCTZ 25 mg OV 01/17/2023 he has apparently been taking Losartan/H CTZ 50/12.5, her blood pressure is uncontroll ed.Stop Losartan/H CTZ 50/12.5Sta rt Losartan 50 mgStart HCTZ 25 mgSide effects were discussed Impaired f asting glycemia 895913732 R73.01 Discussed Vitamin B1 2 deficiency (non anemic) 62057159 E53.8 Recheck Pure hypercholesterolemia 589188380 E78.00 Vitamin D deficiency 347 44400 E55.9 Health Concerns Section Related Observation LastModified by Organization Detai ls LastModified Time None Recorded Concern Status LastModified by Organization Details LastModified Time None Recorded Advance Directives Directive None Recorded Payers Encounter Date Sequence Insurance Name Policy Number Policy Bowen Covered Member ID Bowen Member ID Guarantor Name 03/19/2023 1 [facility] ON OR AFTER 04/06/21 (MEDICAID REPLACEMENT - HMO) Linda Mccoy [id number] Linda Mccoy 05/01/2023 1 [facility] ON OR AFTER 04/06/21 (MEDICAID REPLACEMENT - HMO) Linda Mccoy [id number] Linda Mccoy 05/16/2023 1 [facility] ON OR AFTER 04/06/21 (MEDICAID REPLACEMENT - HMO) Linda Mccoy [id number] Linda Darius 06/30/2024 1 [facility] ON OR AFTER 04/06/21 (MEDICAID REPLACEMENT - HMO) Linda Mccoy [id number] Linda Mccoy 12/30/2024 1 [facility] ON OR AFTER 04/06/21 (MEDICAID REPLACEMENT - HMO) Linda Mccoy [id number] Linda Mccoy Notes Date Note Type Note [...] was admitted to the crisis center in [place] where she was started on Trazodone and [...] her HCTZ. Mohsen Fernandes MD Attn: Accounting, [facility], [place], [address], [facility] 03/19/2023 16:48:27 05/01/2023 text/html I am here [...] the interim, she was seen by the statistical consultant and diagnosed with Ocular Migraineand Vitreous syneresis. Her appointment with the neurologist is scheduled. Mohsen Fernandes MD Attn: Accounting, [facility], [place], [address], [facility] 05/01/2023 14:06:48 06/30/2024 text/html I have not [...] recent admission. Mohsen Fernandes MD Attn: Accounting,[address] [facility], [place], [address], [facility] 06/30/2024 13:21:30 12/30/2024 text/html Hypertension F/UReported bypatient.Associated [...] EGD and she was seen by her stonecutter hand who added Metoprolol to her regimen. Mohsen Fernandes MD Attn: Accounting,[address] [facility], [place], [address], [facility] 12/30/2024 13:53:56 OBGyn Episode Ob Episode Information Episode Created Date Number of Fetuses Patient Bloodtype Patient rh Status Prepregnancy Weight lbs Domestic Partner Domestic Partner Phone Father Name Packaging Tech Status 05/04/20 21 1 CLOSED Fetus Data First Name Last Name Admitted to NICU Weight (g) Sex Living Outcome Pediatric Complications Fetus ID Race Codes Race Delivery Type F Full Term [id number] Johnie Calculation Initial Johnie Date Initial Exam [...] Tubal Sterilization Discharge Date Comments 0 Regional-Sp inal Discharge Information Feeding Method Contraceptive Method Maternal HG B and HCT Levels Ob Episode Information Episode Created Date Number of Fetuses Patient Bloodtype Patient rh Status Prepregnancy Weight lbs Domestic Partner Domestic Partner Phone Father Name Packaging Tech Status 05/04/20 21 1 CLOSED Fetus Data First Name Last Name Admitted to NICU Weight (g) Sex Living Outcome Pediatric Complications Fetus ID Race Codes Race Delivery Type M Full Term [id number] Johnie Calculation Initial Johnie Date Initial Exam [...]
--- OUTSIDE RECORDS SUMMARY | 2025-02-02 21:31 | XMS_ITS | CONTINUITY OF CARE DOCUMENT ---
Author Name kumar, kumar Address Unknown Organization [facility] Address [address] [address] [place] [address] Phone [phone] Care Team Providers Care Polygraph Technician Name Role Phone Johana Mata MD Unavailable [phone] PEGGY FINK MD Unavailable PEGGY FINK MD Unavailable [phone] PROBLEMS Condition Status Date Provider Notes PALPITATIONS-11/15 NUC NEG completed - Johana santiago MD CP- 07/14 ECHO EF 60 completed - Johana Mata MD Chest pain--cath 06/30 showed Mild CAD active 1 Johana Mata MD Palpitations active Johana Mata MD Anxiety active Johana Mata MD Hypertension active Johana Mata MD ENCOUNTERS Date Type Provider Location Encounter Diag nosis 2 - 2 In-person encounter Office Visit Johana Mata MD [facility] Chest pain--cath 06/30 showed Mild CAD 8 - 8 In-person encounter Office Visit Johana Mata MD [facility] 1 - 1 In-person encounter Office Visit Johana Mata MD [facility] PALPITATIONS-11/15 NUC NEGCP- 07/14 ECHO EF 60Chest pain--cath 06/30 showed Mild CADPalpitationsAnxietyHypertension 0 - 2 In-person encounter Office Visit Moris Poole MD [facility] 3 - 5 In-person encounter Office Visit Moris Poole MD [facility] 1 - 8 In-person encounter Office Visit Mikel Link MD [facility] PALPITATIONS-11/15 NUC NEGCP- 07/14 ECHO EF [...] [lb_av] Thalia Mckinnon height E&M 63 [in_i] [employer] Body Mass Index (Ratio) 31.46 kg/m2 Vikash [...] Betty Mallory height E&M 63 [in_i] Betty Mlalory blood pressure, diastolic 85 mm[Hg] Karina Cardenas blood pressure, systolic 147 mm[Hg] Jazmine Cardenas pulse rate 78 /min Natanael loyd oxygen saturation, oximetry 99 % Natanael Cardensa respiratory rate E&M 16 /min Raul Cardenas [...] Chloe Murray blood pressure, diastolic 88 mm[Hg] Va bailee blood pressure, systolic 149 mm[Hg] Andria [...] Payer name Policy type / Coverage type [place] [employer] party ID [place] MEDICAID (2) Medicaid [id number] ADVANCE DIRECTIVES Name Date DISCUSSED - NO DECISION MADE TREATMENT PLAN Date Name Performer [id number],S, Aftab Ahmedza i [id number],S, Aftab Ahmedza i [id number],S, Aftab Ahmedza i [id number],S, Aftab Ahmedza i [id number],S, Aftab Ahmedza i [id number],S, Aftab Ahmedza i [id number],S, Aftab Ahmedza i [id number],S, Aftab Ahmedza i Cardiology Aftab Ahmedzai Cardiology [...] Prior BP: / () Orders: E KG ([id number]) Mikel Link MD Date Name CT, Coronary Calcium Score Stress Routine PROTHROMBIN TIME WIT H INR LIPID PANEL CBC (INCLUDES DIFF/P LT) COMPREHENSIVE METABO LIC PANEL W/EGFR Cardiac Cath - Left - GC STR - Nuclear Complete Echo LIPID PANEL Stress Test - Adenos ine HISTORY OF PROCEDURES Procedure Date Procedure Name Provider Procedure Notes S tatus SNOMED-CT: 005707541 [id number] Current Medications Documented Moris Poole MD completed Stress EKG Josh Villa MD complet ed Cardiolite, 2 units Moris Poole MD c ompleted SPECT Images Josh Villa MD compl eted SNOMED-CT: 867149129 904347 Current Medications Documented Moris Poole MD completed EKG Moris Poole MD completed JO ANN Link MD complete d
--- OUTSIDE RECORDS SUMMARY | 2025-02-02 21:31 | XMS_ITS | Clinical Summary ---
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 Gender Identity Not on file Sexual Orientation [...] Hep C Ab NONREACT NONREACTIVE Comment: Siemens CentaurXP using CAN (chemiluminescent immunoassay) [...] LAB MICROBIOLOGY - GENERAL ORDERABLES Final Result [facility] HISTORICAL RESULTS from Last 3 Months or Most Recently Relevant to Health Maintenance Insurance [facility] Member Subscriber Plan / Payer ( fective 2023-Present) Name:Matthieu Mccoyradha Gonzales Relation to Subscriber:Self Name:Linda Mccoy Janet Payer ID:[id number] (NAIC) Group ID:Not on file Type:MEDICAID RISK OTHER Address: ATTN: CLAIMS DEPT [address] [place] [phone] Care Teams Accounting Representative Relationship Specialty Start Date End Date Mohsen Fernandes MD [address] [place], [place] [id number] PCP - General Internal Medicine 04/16/23
[2025-02-02] MEDS: GABAPENTIN 300 MG CAPSULE PO (21:32)
--- OUTSIDE RECORDS SUMMARY | 2025-02-02 21:32 | XMS_ITS | Patient Health Record ---
Author Organization [facility] Address [address] [place] [address] Care Team Providers Care Environmental Web Crawler Name Role Phone Kanu Lulu Primary Care Provider [phone] Pat Dillon Unavailable [phone] Maggy Yu Unavailable [phone] Allergies Allergen (clinical drug ingredient) Drug/Non Drug Allergy documented on EMR Reaction Allergy Type Onset Date Status No Known Drug Allergy Unknown Drug Allergy Active Reason For Referral No Information Medications Medication SIG (Take, Route, Frequency, Duration) Notes Start Date End Date Status Auvelity 45-105 MG 2 tablet in the morn ing Orally Once a day for 7 days Active Auvelity 45-105 MG 2 tablets in the morning Orally Once a day for 30 days Active Metoprolol Tartrate 25 MG 1 tablet with food Orally Twice a day Active amLODIPine Besylate 5 MG 1 tablet Orally Once a day Active Cholecalciferol 25 MCG (1000 UT) 1 capsule Orally Once a day for 30 days Active Social History Tobacco Use: Social History Observation Description Date Details (start date - stop date) Never Smoker NA - NA Sex Assigned At : Social History Observation Description Sex Assigned At Female Dont use, Tobacco Use/Smoking Question Answer Notes Are you a nonsmoker Tobacco Control (Standard) Question Answer Notes Tobacco use: Nonsmoker Problems Problem Type SNOMED Code ICD Code Onset Dates Problem Status W/U Status Risk Notes Problem Anxiety disorder (876040760) Anxiety disorder, unspecified (F41.9) Active confirmed Problem Major depressive disorder (699766094) Major depressive disorder (F32.9) Active confirmed Problem Dysthymia (20843035) Dysthymia (F34.1) Active confirmed Vital Signs Heart [...] morning Encounters Encounter Location Date Provider Diagnosis [address] [address] 04/03/2024 Pat Dillon Anxiety disorder, unspecified F41.9 and Dysthymia F34.[address] [address] 06/24/2024 Lulu Bobby Anxiety disorder, unspecified F41.9 and Dysthymia F34.[address] [address] 08/12/2024 Lulu Bobby Anxiety disorder, unspecified F41.9 and Dysthymia F34.[address] [address] 09/16/2024 Lulu Bobby Anxiety disorder, unspecified F41.9 and Dysthymia F34.[address] [address] 12/07/2024 Lulu Bobby Dysthymia F34.1 ; Major depressive disorder F32.9 and Anxiety disorder, unspecified F41.[address] [address] 01/27/2025 Lulu Bobby Major depressive disorder F32.9 ; Dysthymia F34.1 and Anxiety disorder, unspecified F41.[address] [place] [address] 02/24/2024 Lulu Trevizoan Encounter for screening for malignant neoplasm of [...] taking and no efficacy noted per reports. 01/27/2025 Major depressive disorder (ICD-10 - F32.9) Discussed r/b/se. See below for further information. 01/27/2025 Dysthymia (ICD-10 - F34.1) Client has an extensive hx of past medication trials: see clinical noted for all medications noted in the past. Strongly encouraged therapy, client declines referral at this time. Declines talking with crisis staff. Denies plan/intent with SI, states it is passive thoughts. Discussed working to set goals, focus on building her support system, having more connection with other people, getting out of the house, going for walks when the weather is stable, and working to set goals to work on her purpose, taking care of her mom and her plants. Client v/u and agreement. States she will think about starting therapy. Clinical Notes: Adjuncts: Hx of Zyprexa with [...] or be administered own oral medications per [place] protocols. Provided informed consent with understanding of side effects, adverse effects, risks and benefits as well as alternative treatments as previously discussed and with the above recommended medications & other aspects of the treatment program. Agrees to return sooner if symptoms worsen or suicidal or homicidal ideations occur. 01/27/2025 Anxiety disorder, unspecified (ICD-10 - F41.9) Encouraged thearpy. Client declines. 06/24/2024 Other Reasons, potential benefits, potential risks, [...] May also contact the 24-hour crisis hotline ([facility]), refer to the closest emergency room or [...] May also contact the 24-hour crisis hotline ([facility]), refer to the closest emergency room or [...] May also contact the 24-hour crisis hotline ([facility]), refer to the closest emergency room or [...] of education, treatment plan and follow up. 01/27/2025 Other Reasons, potential benefits, potential risks, interactions [...] May also contact the 24-hour crisis hotline ([facility]), refer to the closest emergency room or [...] assess appearance, affect, AIMS, or vital signs. Plan Of Treatment No Information Insurance Providers Payer Name Payer Address Payer Phone Subscriber Number Group Number Insured Name Patient Relationship to Insured Coverage Start Date Coverage End Date [facility] Attn Claims Department [address] [place] [address] [phone] [id number] Linda Salcedo Self - patient is the insured 3 [facility] Attn Claims Department [address] [place] [address] [phone] [id number] Linda Salcedo Self - patient is the insured 3 Medical (General) History Medical History History ICD Code Hypertension Surgical History Surgery Date(Month/Year) c section x 3 Hospitalization History Reason Date(Month/Year) child x3
[2025-02-02] MEDS: KETOROLAC 30 MG/ML VIAL (*BKC) IM (22:13)
== END 2025-02-02 22:15 | disposition home or self-care (01) ==
PROVIDERS: Emergency Provider Student in an Organized Health Care Education/Training Program; PCP Internal Medicine Infectious Disease
DX: S39.012A Strain of muscle, fascia and tendon of lower back, initial encounter (principal); M47.817 Spondylosis without myelopathy or radiculopathy, lumbosacral region; I10 Essential (primary) hypertension; F32.A Depression, unspecified; F41.9 Anxiety disorder, unspecified; X58.XXXA Exposure to other specified factors, initial encounter
CPT/HCPCS: 72125; 72128; 72131; 96372; 99284; A9270; J1885